=== PATIENT | female | born 1950 | race Caucasian/White ===

== ENCOUNTER 2017-03-30 16:21 | Inpatient (IN) ==
[2017-03-30] MEDS ORDERED: Ondansetron 4 MG/2 ML VIAL IVP PRN (20:47)
[2017-03-30] MEDS ORDERED: Naloxone 0.4 MG/ML INJ IVP PRN (20:47)
[2017-03-30] MEDS ORDERED: Ibuprofen 400 MG TABLET PO PRN (20:47)
[2017-03-30] MEDS ORDERED: Dextrose Gel 15 GM PO PRN ×2 (20:50)
[2017-03-30] MEDS ORDERED: D5% in Water 1,000 ML IVC PRN (20:50)
[2017-03-30] MEDS ORDERED: *HR* Dextrose 50 % in Water (Syg) 50 ML SYRINGE IVP PRN (20:50)
--- NOTE | 2017-03-30 21:27 | Internal Med History&Physical ---
Date of Encounter: 03/30/17 Time of Encounter: 21:23 Assessment and Plan (1) Cirrhosis Current visit: Yes Status: Acute New onset. Most likely cause at this time is nonalcoholic fatty liver disease, however differential includes alcoholic cirrhosis, hepatitis, autoimmune, hemochromatosis, Elio's, alpha-1 antitrypsin. Patient denies any history of liver disease, alcohol use, hepatitis. Will obtain liver ultrasound for further characterization, will check hepatitis panel, HILTON, iron profile and ferritin, ceruloplasmin, alpha-1 antitrypsin. SPEP does not appear present as the patient is not febrile or not in pain. Qualifiers: Hepatic cirrhosis type: unspecified hepatic cirrhosis Ascites presence: with ascites Qualified Code(s): K74.60 - Unspecified cirrhosis of liver (2) Pleural effusion Current visit: No Status: Acute Likely transudative in the setting of cirrhosis and hypoalbuminemia. Patient's respiratory status is clinically stable. Will diuresis. If respiratory status worsens or diuresis his ineffective then patient may require thoracentesis. (3) Type 2 diabetes mellitus Current visit: Yes Status: Acute Patient uses his insulin on sliding scale coverage. We will hold oral hypoglycemic agents. Continue monitor blood sugar and adjust insulin regimen based on blood sugars. 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 Continue PPI. Qualifiers: Esophagitis presence: esophagitis presence not specified Qualified Code(s) : K21.9 - Gastro-esophageal reflux disease without esophagitis (5) DVT prophylaxis Current visit: Yes Status: Acute EPCDs Internal Medicine - H&P: HPI Chief complaint: Abdominal distention Admitted From: Emergency Dept Plans for Post Hospital Care: Home History of present illness: Ms. Bautista is a 66 year old female with history of type 2 diabetes presents with shortness of breath and abdominal distention. Patient states that she has gained 30 pounds over the last several weeks and her abdomen has slowly distended over that time. She came to the hospital today because she had progressive shortness of breath which worsened as her abdominal distention worsened. She states her abdomen has been distended in the past but has resolved spontaneously. She reports a mild dry cough. She denies any fever, chills, chest pain, syncope, vision changes, abdominal pain, nausea, vomiting, diarrhea, hematemesis, hematochezia, melena, lower extremity swelling, dysuria. She denies any history of liver disease and states that she was recently told her liver was "great." She denies any history of hepatitis or alcohol use, denies any family history of liver disease. Past Med Surg Social Fam HX - Past Medical History Medical history: diabetes, GERD, hypertension Psychiatric history: anxiety, depression - Past Surgical History Surgical History: , cataract, cholecystectomy, hysterectomy, knee replacement, orthopedic, other, other - Social History Smoking Status: Never smoker Smokeless Tobacco Status: No Alcohol use: none Drug use: none - Additional Family History Additional family history: Patient denies any significant family history. Internal Medicine - H&P: Meds Insulin ASPART [Novolog Flexpen] 0 unit SQ TIDWM 07/03/16 [History] Insulin Glargine,Hum.rec.anlog [Lantus Solostar] 30 - 35 unit SQ HS 07/03/16 [ History] Lisinopril-HCTZ 10-12.5 [Prinzide 10-12.5] 1 each PO DAILY 07/03/16 [History] Omeprazole [PriLOSEC] 20 mg PO DAILY 07/03/16 [History] Venlafaxine XR (24 HR) [Effexor XR] 150 mg PO DAILY 07/03/16 [History] Gabapentin [Neurontin] 300 mg PO HS 03/30/17 [History] Metformin HCl [Glucophage] 1,000 mg PO DAILY 03/30/17 [History] Allergies acetaminophen [From Percocet] Allergy (Verified 07/03/16 23:07) Nausea Oxycodone [From OxyContin] Allergy (Verified 07/03/16 23:07) Hives All Systems PM: A 10-system review of systems was performed and is negative for pertinent findings except as documented above in the HPI. - Constitutional Constitutional: weight gain, no chills, no fever(s) - EENT Eyes: no blurry vision, no change in vision Nose, mouth and throat: no sinus pain, no sinus pressure, no sore throat - Cardiovascular Cardiovascular ROS IM: dyspnea, no chest pain, no edema, no lightheadedness, no palpitations, no syncope - Respiratory Respiratory: cough, dyspnea, no hemoptysis, no dyspnea on exertion, no wheezing , no chest congestion, no excessive phlegm production, no change in phlegm color - Gastrointestinal Gastrointestinal: bloating, no abdominal pain, no diarrhea, no hematemesis, no hematochezia, no melena, no nausea, no vomiting - Genitourinary Genitourinary: no dysuria - Musculoskeletal Musculoskeletal ROS IM: no arthralgias, no numbness, no tingling - Integumentary Integumentary IM: no erythema, no new lesions, no rash - Neurological Neurological ROS: no confusion, no dizziness, no numbness, no tingling - Psychiatric Psychiatric: no confusion - Endocrine Endocrine IM: no polydipsia, no polyuria - Hematologic/Lymphatic Hematologic/Lymphatic: no easy bleeding, no easy bruising - Constitutional Vitals: Temp Pulse Resp BP Pulse Ox 98.1 F 103 13 135/68 98 03/30/17 20:11 03/30/17 20:11 03/30/17 20:11 03/30/17 20:11 03/30/17 20:11 General appearance: Present: A&O X 3, pleasant, no acute distress - Head Head exam: Present: atraumatic, normal inspection, normocephalic - Eye Eye exam: Present: EOMI Additional comments: The right pupil seemed slightly larger than the left pupil, both were reactive to light - ENT ENT exam: Present: mucous membranes dry - Neck Neck exam general surgery: Present: full ROM. Absent: tenderness - Respiratory Respiratory exam: Present: decreased breath sounds (Left base). Absent: rales, rhonchi, wheezes, tachypnea - Cardiovascular Cardiovascular exam: Present: tachycardia (regular). Absent: gallop, rubs, systolic murmur - GI/Abdominal GI/Abdominal exam: Present: normal bowel sounds, soft. Absent: distended, tenderness - Extremities Exam Extremities exam: Present: pedal edema (1+ bilaterally), warm. Absent: tenderness - Neurological Exam Neurological exam: Present: alert, CN II-XII intact, oriented X3, no focal deficits, strengths equal and symetr throughout. Absent: speech deficit - Psychiatric Psychiatric exam: Present: flat affect - Skin Skin exam: Present: dry, intact, warm
[2017-03-30 22:07] LABS: Hemoglobin A1C 5.2 %
[2017-03-30 22:11] LABS: % Iron Saturation 9 % (15-50); Gamma Glutamyl Transpeptidase 34 Units/L (9-36); Iron 29 mcg/dL (50-170); Lactate Dehydrogenase 174 Units/L (159-327); Transferrin 229 mg/dL (180-382)
[2017-03-30 22:31] LABS: Ferritin 52 ng/ml (5-204)
[2017-03-30 22:33] LABS: Hepatitis A Antibody IgM Nonreactive (Nonreactive); Hepatitis B Core IgM Nonreactive (Nonreactive); Hepatitis B Surface Antigen Nonreactive (Nonreactive); Hepatitis C Virus Antibody Nonreactive (Nonreactive)
[2017-03-30] MEDS: Insulin DETEMIR 100 UNIT/ML X5UNITS SQ SCH (23:11)
[2017-03-30] MEDS: Insulin LISPRO 300 UNITS/3 ML VIAL SQ SCH (23:11)
--- NOTE | 2017-03-31 02:09 | Procedure Note ---
Date of procedure: 03/31/17 Pre-op diagnosis: Ascities Post-op diagnosis: same Procedure: Large volume paracentesis: Consent was obtained from the patient. Timeout was performed and the correct patient and procedure were verified. The abdomen was surveyed using ultrasound and a large pocket of fluid was identified. The skin was prepped and draped in the usual sterile fashion. The skin, subcutaneous tissues, and peritoneal lining were anesthetized using 8 mL of 1% lidocaine. A lorena in the skin was made using a scalpel and a catheter over needle apparatus was advanced into the peritoneal space. The needle was removed and an initial sample of fluid was removed and placed in specimen tubes. Then approximately 6.6 L of cloudy, blood -tinged fluid was removed. The catheter was then removed intact. Band-Aid was applied. The patient tolerated the procedure well and there are no immediate complications. Given the amount of fluid, 50 g of albumin has been ordered to give intravenously. The fluid will be sent to the lab for analysis. The attending physician, Dr. Adkins, was present for and supervised the entire procedure. Anesthesia: local Surgeon: Jaciel Vital Estimated blood loss (cc): 0 IV fluids (cc): 0 Pathology: other (Ascitic fluid sent to lab) Condition: stable Disposition: floor
[2017-03-31] MEDS: Albumin 25% 25gram/100mL 25 GM/100 ML IV.SOLN IVC SCH ×2 (02:18→04:34)
[2017-03-31 03:01] LABS: RBC,Peritoneal Fluid 0.036 M/mcL
[2017-03-31 03:07] LABS: Appearance of Peritoneal Fl BLOODY (Clear)
[2017-03-31 03:10] LABS: Amylase,Peritoneal Fluid 16 Units/L (No Ref Range); Glucose,Peritoneal Fluid 159 mg/dL (No Ref Range); LDH,Peritoneal Fluid 48 Units/L (No Ref Range); Total Protein,Peritoneal Fluid 1.5 g/dL (No Ref Range)
[2017-03-31 03:44] LABS: Basophils,Peritoneal Fluid 0 %; Eosinophils,Peritoneal Fluid 0 %
[2017-03-31 05:33] LABS: Immature Granulocytes % 0.3 % (0-4)
[2017-03-31 05:35] LABS: Basophils % 0.3 %; Eosinophils # 0.1 K/mcL (0.0-0.6); Eosinophils % 1.9 %; Hematocrit 31.5 % (35.3-44.9); Hemoglobin 9.7 g/dL (11.5-15.4); Immature Platelets 2.2 % (1.1-6.1); Lymphocytes # 0.7 K/mcL (0.6-4.6); Lymphocytes % 22.4 %; Mean Corpuscular HGB Conc 30.8 g/dL (31.6-35.5); Mean Platelet Volume 10.2 fL (9.4-12.4); Monocytes # 0.5 K/mcL (0.0-1.3); Monocytes % 14.9 %; Neutrophils # 1.9 K/mcL (1.6-8.9); Red Blood Count 4.04 M/mcL (3.82-4.97); Red Cell Distribution Width 16.6 % (11.5-14.5); Segmented Neutrophils % 60.2 %
[2017-03-31 05:38] LABS: INR 1.4; Prothrombin Time 15.2 Seconds (9.4-12.1)
[2017-03-31 05:58] LABS: BUN/Creatinine Ratio 23 (6-26); Blood Urea Nitrogen 18 mg/dL (7-20); Calcium 8.8 mg/dL (8.6-10.8); Carbon Dioxide 27 mEq/L (19-29); Chloride 105 mEq/L (98-109); Glucose 137 mg/dL (70-99); Magnesium 1.4 mg/dL (1.6-2.6); Osmolality,Calculated 292 (280-300); Phosphorous 2.6 mg/dL (2.3-4.7); Potassium 3.6 mEq/L (3.5-4.5); Sodium 139 mEq/L (136-145); eGFR For African Americans > 60 (> 60); eGFR For Non-African Americans > 60 (> 60)
[2017-03-31 06:01] LABS: Platelet Count 91 K/mcL (140-400)
[2017-03-31] MEDS: Insulin LISPRO 300 UNITS/3 ML VIAL SQ SCH ×4 (08:01→20:16)
[2017-03-31] MEDS ORDERED: Pantoprazole 40 MG VIAL IVP SCH (09:00)
[2017-03-31] MEDS: Furosemide 40 MG TABLET PO SCH (09:41)
[2017-03-31] MEDS: Venlafaxine XR (24 HR) 150 MG CAP.ER.24H PO SCH (09:41)
[2017-03-31] MEDS ORDERED: Magnesium Sulfate 1 GM in D5% in Water 100 ML IVPB ONE (10:28)
--- NOTE | 2017-03-31 12:52 | Gastroenterology Consult Note ---
<Jaciel Lindsay - Last Filed: 03/31/17 12:50> Date of Encounter: 03/31/17 Time of Encounter: 11:20 - Assessment and plan (1) Cirrhosis Current Visit: Yes Status: Acute Assessment and plan: Likely secondary to TONEY. RUQ US shows cirrhotic liver with moderate ascites, no mass seen. Unable to calculate MELD-NA, Child-Salcedo, or DF. Awaiting hepatic panel. Plan for EGD tomorrow r/o esophageal varices, keep NPO at midnight. Check AFP, alpha-1 antitrypsin, HILTON, ANCA, ceruloplasmin, F actin, ferritin, hepatitis panel, AMA, PT/INR. Qualifiers: Hepatic cirrhosis type: unspecified hepatic cirrhosis Ascites presence: with ascites Qualified Code(s): K74.60 - Unspecified cirrhosis of liver (2) Ascites Current Visit: Yes Status: Acute Assessment and plan: Paracentesis completed with 6.6 L drained. Continue Aldactone and Lasix. Qualifiers: Ascites type: other type Qualified Code(s): R18.8 - Other ascites - Time Spent With Patient Total time spent is greater than 50% in coordination of care (as documented) at patient's floor/unit and/or counseling patient: GI History of Present Illness - Data of Consult Patient: new to practice Consult date: 03/31/17 Requesting Physician: Tom Ying MD - Consult Narrative Reason for consult: cirrhosis History of present illness: Ms. Bautista is a 66 year old female with PMHx of DM, GERD, HTN who presented with worsening shortness of breath and abdomnal distention. Patient states that she has gained 30 pounds over the last several weeks and her abdomen has slowly distended over that time. She states her abdomen has been distended in the past but has resolved spontaneously. She denies any fever, chills, chest pain, syncope, vision changes, abdominal pain, nausea, vomiting, diarrhea, hematemesis , hematochezia, melena, lower extremity swelling, dysuria. She denies any history of liver disease and states that she was recently told her liver was "great." She denies any history of hepatitis or alcohol use, denies any family history of liver disease. Paracentesis was completed with 6.6 L of fluid removed. Procedures: None NSAIDs: None Anticoagulation: None Past Med Surg Social Fam HX - Past Medical History Medical history: diabetes, GERD, hypertension Psychiatric history: anxiety, depression - Past Surgical History Surgical History: , cataract, cholecystectomy, hysterectomy, knee replacement, orthopedic, other, other - Social History Smoking Status: Never smoker Smokeless Tobacco Status: No Alcohol use: none Drug use: none - Gastrointestinal Gastrointestinal: Present: as per HPI - Constitutional Constitutional: as per HPI - EENT Eyes: as per HPI Ears: Present: as per HPI Nose, mouth and throat: Present: as per HPI - Cardiovascular Cardiovascular ROS: Present: as per HPI - Respiratory Respiratory IM: Present: as per HPI - Genitourinary Genitourinary: Absent: change in color, Urinary frequency - Neurological ROS Neurological GI: Present: as per HPI - Hematologic/Lymphatic Hematologic/Lymphatic pediatric: Present: as per HPI - Musculoskeletal Musculoskeletal ROS GI: Present: as per HPI - Integumentary Integumentary GI: Present: as per HPI - Psychiatric ROS Psychiatric GI: Present: as per HPI - Endocrine Endocrine IM: Present: as per HPI - Constitutional Vitals: Temp Pulse Resp BP Pulse Ox 98.2 F 102 20 106/59 97 03/31/17 11:20 03/31/17 11:20 03/31/17 11:20 03/31/17 11:20 03/31/17 11:20 General appearance: Present: cooperative, A&O X 3, no acute distress, answers questions appropriately - Head Head exam: Present: atraumatic, normocephalic - Eye Eye exam: Present: normal appearance, sclera anicteric - ENT ENT exam: Present: mucous membranes moist - Neck Neck exam general surgery: Present: normal inspection, trachea midline - Respiratory Respiratory exam: Present: CTAB. Absent: rales, rhonchi - Cardiovascular Cardiovascular exam: Present: RRR, +S1, +S2 - GI/Abdominal GI/Abdominal exam: Present: soft, no peritoneal signs. Absent: distended, firm , guarding, tenderness - Rectal Rectal exam: Present: deferred - Extremities Exam Extremities exam: Present: warm - Neurological Exam Neurological exam: Present: no focal deficits - Psychiatric Psychiatric exam: Present: normal affect, normal mood - Skin Skin exam: Present: dry, intact, normal color, warm Results - Labs CBC & Chem 7: 03/31/17 04:42 03/31/17 04:42 Labs: Last Result Calcium 8.8 mg/dL (8.6-10.8) 03/31/17 04:42 Iron 29 mcg/dL (50-170) L 03/30/17 21:44 % Saturation 9 % (15-50) L 03/30/17 21:44 Transferrin 229 mg/dL (180-382) 03/30/17 21:44 Ferritin 52 ng/ml (5-204) 03/30/17 21:44 Peritoneal Appearance BLOODY (Clear) 03/31/17 02:20 Peritoneal Volume 18.0 mL 03/31/17 02:20 Peritoneal pH 7.62 pH Units (No Ref Range) 03/31/17 02:20 Peritoneal RBC 0.036 M/mcL (0.000-0.002) H 03/31/17 02:20 Periton Tot Nuc Cells 1015 TNC/mcL (0-300) H 03/31/17 02:20 Periton Band Neuts 0 % 03/31/17 02:20 Periton Lymphocytes % 96 % 03/31/17 02:20 Periton Monocytes % 3 % 03/31/17 02:20 Periton Other Cells % 0 % 03/31/17 02:20 Peritoneal Tot Protein 1.5 g/dL (No Ref Range) 03/31/17 02:20 Peritoneal Albumin 0.8 g/dL (No Ref Range) 03/31/17 02:20 Peritoneal LDH 48 Units/L (No Ref Range) 03/31/17 02:20 Peritoneal Glucose 159 mg/dL (No Ref Range) 03/31/17 02:20 Peritoneal Amylase 16 Units/L (No Ref Range) 03/31/17 02:20 Peritoneal Cholesterol 21 mg/dL (No Ref Range) 03/31/17 02:20 Peritoneal Triglycerid 199 mg/dL (No Ref Range) 03/31/17 02:20 Entire Visit Hgb 9.7 g/dL (11.5-15.4) L 03/31/17 04:42 Hct 31.5 % (35.3-44.9) L 03/31/17 04:42 PT 15.2 Seconds (9.4-12.1) H 03/31/17 04:42 Ferritin 52 ng/ml (5-204) 03/30/17 21:44 Ammonia 59 mcmol/L (18-72) 03/30/17 21:44 - ABG ABG results: PT/INR, D-dimer PT 15.2 Seconds (9.4-12.1) H 03/31/17 04:42 - Impressions Impressions Liver Ultrasound 03/31/17 08:00 IMPRESSION: Cirrhotic liver with moderate ascites. No definite mass D/ / Shahid Hagan MD / Shahid Hagan MD Interpreting Provider: Shahid Hagan MD Consult Discharge Plan - Plan Referrals: Latha Fink, [employer] [Primary Care Provider] - <Genevieve Dai - Last Filed: 03/31/17 17:20> Date of Encounter: 03/31/17 Time of Encounter: 14:00 - Time Spent With Patient Total time spent is greater than 50% in coordination of care (as documented) at patient's floor/unit and/or counseling patient: GI History of Present Illness - Data of Consult Requesting Physician: Tom Ying MD - Consult Narrative History of present illness: Ms. Bautista is a 66 year old female - Constitutional Vitals: Temp Pulse Resp BP Pulse Ox 98.2 F 102 20 106/59 97 03/31/17 11:20 03/31/17 11:20 03/31/17 11:20 03/31/17 11:20 03/31/17 11:20 Results - Labs CBC & Chem 7: 03/31/17 04:42 03/31/17 04:42 Labs: Last Result Calcium 8.8 mg/dL (8.6-10.8) 03/31/17 04:42 Iron 29 mcg/dL (50-170) L 03/30/17 21:44 % Saturation 9 % (15-50) L 03/30/17 21:44 Transferrin 229 mg/dL (180-382) 03/30/17 21:44 Ferritin 52 ng/ml (5-204) 03/30/17 21:44 Peritoneal Appearance BLOODY (Clear) 03/31/17 02:20 Peritoneal Volume 18.0 mL 03/31/17 02:20 Peritoneal pH 7.62 pH Units (No Ref Range) 03/31/17 02:20 Peritoneal RBC 0.036 M/mcL (0.000-0.002) H 03/31/17 02:20 Periton Tot Nuc Cells 1015 TNC/mcL (0-300) H 03/31/17 02:20 Periton Band Neuts 0 % 03/31/17 02:20 Periton Lymphocytes % 96 % 03/31/17 02:20 Periton Monocytes % 3 % 03/31/17 02:20 Periton Other Cells % 0 % 03/31/17 02:20 Peritoneal Tot Protein 1.5 g/dL (No Ref Range) 03/31/17 02:20 Peritoneal Albumin 0.8 g/dL (No Ref Range) 03/31/17 02:20 Peritoneal LDH 48 Units/L (No Ref Range) 03/31/17 02:20 Peritoneal Glucose 159 mg/dL (No Ref Range) 03/31/17 02:20 Peritoneal Amylase 16 Units/L (No Ref Range) 03/31/17 02:20 Peritoneal Cholesterol 21 mg/dL (No Ref Range) 03/31/17 02:20 Peritoneal Triglycerid 199 mg/dL (No Ref Range) 03/31/17 02:20 Entire Visit Hgb 9.7 g/dL (11.5-15.4) L 03/31/17 04:42 Hct 31.5 % (35.3-44.9) L 03/31/17 04:42 PT 15.2 Seconds (9.4-12.1) H 03/31/17 04:42 Ferritin 52 ng/ml (5-204) 03/30/17 21:44 Total Bilirubin 1.9 mg/dL (0.2-1.2) H D 03/31/17 10:05 AST 23 Units/L (5-34) 03/31/17 10:05 ALT 11 Units/L (0-55) 03/31/17 10:05 Ammonia 59 mcmol/L (18-72) 03/30/17 21:44 - ABG ABG results: PT/INR, D-dimer PT 15.2 Seconds (9.4-12.1) H 03/31/17 04:42 - Impressions Impressions Liver Ultrasound 03/31/17 08:00 IMPRESSION: Cirrhotic liver with moderate ascites. No definite mass D/ / Shahid Hagan MD / Shahid Hagan MD Interpreting Provider: Shahid Hagan MD - Attending Attestation I examined this patient and my medical decision-making was reviewed with the RURAL CARRIER ASSOCIATE/PA/Advanced Practice Nurse/Resident Physician. I agree with the documented findings, disposition and treatment plan as described except to the extent set forth below.
--- NOTE | 2017-03-31 13:59 | Internal Med Progress Note ---
Date of Encounter: 03/31/17 Time of Encounter: 13:56 - Assessment and plan (1) Pleural effusion Current Visit: No Status: Acute Assessment and plan: currently not in any distress no need for urgent thoracentesis will monitor closely, asymptomatic for now will contiue the diuretics (2) Cirrhosis Current Visit: Yes Status: Acute Assessment and plan: decompensated cirrhosis with portal HTN and ascitis Likely secondary to TONEY. RUQ US shows cirrhotic liver with moderate ascites, no mass seen. GI on board. Plan for EGD tomorrow r/o esophageal varices, keep NPO at midnight. Check AFP, alpha-1 antitrypsin, HILTON, ANCA, ceruloplasmin, F actin, ferritin, hepatitis panel, AMA, PT/INR. 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 s/p Paracentesis completed with 6.6 L drained. Continue Aldactone and Lasix. fluid analysis consistent with portal HTN. Qualifiers: Ascites type: other type Qualified Code(s): R18.8 - Other ascites - Subjective Interval history: patient seen at the bedside, admitted for newly diagnosed cirrhosis with portal HTN appeared very concerned about the diagnosis of cirrhosis, probably 2/2 TONEY. GI has been consulted, s/p paracentesis with 6 l of peritoneal fluid. - Constitutional Vitals: Temp Pulse Resp BP Pulse Ox 98.2 F 102 20 106/59 97 03/31/17 11:20 03/31/17 11:20 03/31/17 11:20 03/31/17 11:20 03/31/17 11:20 General appearance: Present: A&O X 3, pleasant, no acute distress Exam: - Head Head exam: Present: atraumatic, normocephalic - Eye Eye exam: Present: normal appearance, sclera anicteric - ENT ENT exam: Present: mucous membranes moist - Neck Neck exam general surgery: Present: normal inspection, trachea midline - Respiratory Respiratory exam: Present: CTAB. Absent: rales, rhonchi - Cardiovascular Cardiovascular exam: Present: RRR, +S1, +S2 - GI/Abdominal GI/Abdominal exam: Present: soft,mild distended, no peritoneal signs. - Rectal Rectal exam: Present: deferred - Extremities Exam Extremities exam: Present: warm - Neurological Exam Neurological exam: Present: no focal deficits - Psychiatric Psychiatric exam: Present: normal affect, normal mood - Skin Skin exam: Present: dry, intact, normal color, warm Internal Medicine: Result - Labs CBC & Chem 7: 03/31/17 04:42 03/31/17 04:42 Labs: Short CBC 03/31/17 Range/Units 04:42 WBC 3.2 L (4.3-11.1) K/mcL Hgb 9.7 L (11.5-15.4) g/dL Hct 31.5 L (35.3-44.9) % Plt Count 91 L (140-400) K/mcL Neutrophils # 1.9 (1.6-8.9) K/mcL BMP 03/31/17 04:42 Sodium 139 Potassium 3.6 Chloride 105 Carbon Dioxide 27 BUN 18 Creatinine 0.79 Glucose 137 H Calcium 8.8 Liver Function 03/30/17 Range/Units 21:44 GGT 34 (9-36) Units/L - ABG Interpretation ABG results: PT/INR, D-dimer PT 15.2 Seconds (9.4-12.1) H 03/31/17 04:42 - Impressions Impressions Liver Ultrasound 03/31/17 08:00 IMPRESSION: Cirrhotic liver with moderate ascites. No definite mass D/ / Shahid Hagan MD / Shahid Hagan MD Interpreting Provider: Shahid Hagan MD Consult Discharge Plan - Plan Referrals: Latha Fink, UTILITY FORESTER [Primary Care Provider] -
[2017-03-31 14:47] LABS: Albumin/Globulin Ratio 0.9 (1.1-2.2); Bilirubin,Direct 0.7 mg/dL (0.0-0.5); Bilirubin,Indirect 1.2 mg/dL (0.0-1.2); Bilirubin,Total 1.9 mg/dL (0.2-1.2); Globulin 3.4 g/dL (2.4-3.5)
[2017-03-31 14:49] LABS: Total Protein 6.4 g/dL (6.0-8.3)
[2017-03-31] MEDS: Insulin DETEMIR 100 UNIT/ML X5UNITS SQ SCH (20:16)
[2017-04-01] MEDS: Insulin LISPRO 300 UNITS/3 ML VIAL SQ SCH ×2 (08:04→11:55)
[2017-04-01 08:33] LABS: Basophils % 0.6 %; Immature Granulocytes % 0.3 % (0-4); Mean Corpuscular Volume 78.3 fL (83.0-100.0); Red Cell Distribution Width 16.5 % (11.5-14.5)
[2017-04-01 08:35] LABS: Eosinophils # 0.1 K/mcL (0.0-0.6); Eosinophils % 1.4 %; Hemoglobin 9.6 g/dL (11.5-15.4); Immature Platelets 2.2 % (1.1-6.1); Lymphocytes # 0.8 K/mcL (0.6-4.6); Lymphocytes % 23.6 %; Mean Corpuscular Hemoglobin 24.2 pg (28.0-33.3); Monocytes # 0.5 K/mcL (0.0-1.3); Monocytes % 14.4 %; Neutrophils # 2.1 K/mcL (1.6-8.9); Red Blood Count 3.96 M/mcL (3.82-4.97); Segmented Neutrophils % 59.7 %
[2017-04-01 08:37] LABS: Platelet Count 88 K/mcL (140-400)
[2017-04-01 08:44] LABS: BUN/Creatinine Ratio 15 (6-26); Blood Urea Nitrogen 12 mg/dL (7-20); Calcium 8.5 mg/dL (8.6-10.8); Carbon Dioxide 28 mEq/L (19-29); Chloride 106 mEq/L (98-109); Glucose 178 mg/dL (70-99); Osmolality,Calculated 294 (280-300); Potassium 3.9 mEq/L (3.5-4.5); Sodium 140 mEq/L (136-145); eGFR For African Americans > 60 (> 60); eGFR For Non-African Americans > 60 (> 60)
--- NOTE | 2017-04-01 09:48 | Anesthesia Evaluation PreOp ---
Date of Encounter: 04/01/17 Time of Encounter: 09:46 - Past History Planned Operation: EGD Cardiac History: CHF, HTN (maitnained on Lisinopril-Hctz) Pulmonary History: Other (SOB/RAYGOZA/Tachypnea. 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 Chronic pain/ Diabetic Neuropathy maintained on Gabapentin.) Other Medical History: Hepatic (Newly dx Cirrhosis/TONEY (with decompensation this hospitalization)/Portal HTN/Ascites - managed on Lasix, Spironolactone), Diabetes Type II (maintained on Novolog, Lantus, Metformin), GERD (maintained on Omeprazole) Anesthesia History: No Prior Anesthetic Complications, Past Anesthesia (C- section, Cataracts, Juliana, ROSY, R-TKR) Alcohol Use: none Drug use: none Medications and Allergies Insulin ASPART [Novolog Flexpen] 0 unit SQ TIDWM 07/03/16 [History] Insulin Glargine,Hum.rec.anlog [Lantus Solostar] 30 - 35 unit SQ HS 07/03/16 [ History] Lisinopril-HCTZ 10-12.5 [Prinzide 10-12.5] 1 each PO DAILY 07/03/16 [History] Omeprazole [PriLOSEC] 20 mg PO DAILY 07/03/16 [History] Venlafaxine XR (24 HR) [Effexor XR] 150 mg PO DAILY 07/03/16 [History] Gabapentin [Neurontin] 300 mg PO HS 03/30/17 [History] Metformin HCl [Glucophage] 1,000 mg PO DAILY 03/30/17 [History] Allergies acetaminophen [From Percocet] Allergy (Verified 07/03/16 23:07) Nausea Oxycodone [From OxyContin] Allergy (Verified 07/03/16 23:07) Hives - Meds/Allergy Pre-op Review Medications Reviewed: Yes Allergies Reviewed: Yes Beta Blockers on Current Med List: No Anesthesia Results - Labs 04/01/17 08:12 04/01/17 08:12 Laboratory Results Impressions Liver Ultrasound 03/31/17 08:00 IMPRESSION: Cirrhotic liver with moderate ascites. No definite mass D/ / Shahid Hagan MD / Shahid Hagan MD Interpreting Provider: Shahid Hagan MD - Imaging EKG: image reviewed (98bpm SR, Non-specific T-wave abnormality) Anesthesia Exam Vital Signs Temp Pulse Resp BP Pulse Ox 04/01/17 08:00 98.6 F 98 18 129/70 93 04/01/17 04:22 99.4 F 102 14 125/66 93 04/01/17 00:46 99.4 F 107 14 108/59 93 03/31/17 20:06 99.9 F H 104 14 123/63 93 03/31/17 17:11 98.8 F 105 20 122/69 93 03/31/17 11:20 98.2 F 102 20 106/59 97 Intake and Output 03/31/17 04/01/17 04/01/17 23:59 07:59 15:59 Intake Total 0 / 0 0 / 0 Output Total 0 / 0 900 / 900 0 / 0 Balance 0 / 0 -900 / -900 0 / 0 Intake: Oral 0 / 0 0 / 0 Output: Urine 0 / 0 900 / 900 0 / 0 Other: Meal NPO breakfast # Voids 1 Weight 94 kg Blood Glucose* 194 189 Patient Weight 04/01/17 23:59 Weight 94 kg Height: 5'8" Weight: 207# BMI = 32 NPO (# of Hours): MNOc - HEENT Pupil (Motor): Pupils equal, EOMI Mallampati: II Teeth: Normal Oral Opening: Greater than 3 - STICKER MACHINE OPERATOR LOC: Oriented STICKER MACHINE OPERATOR Motor: Normal RUE, Normal LUE, Normal RLE, Normal LLE, Normal Face STICKER MACHINE OPERATOR Sensory: Normal: RUE, LUE, RLE, LLE, Face - Cardiac Rhythm: Regular Murmur: Systolic JVD: No - Pulmonary Breath Sounds: bilateral Clear Anesthesia Assess/Plan ASA Score: 3 (DM, Cirrhosis, Obesity, Smoker, Anxiety/Depression) Modified Thelma Scale for Level of Consciousness: Cooperative, oriented, and tranquil Anesthetic Plan: MAC Monitoring Plan: Standard Monitors Recovery Plan: Other Anes Supervising Prov Stmt: Pt seen/evaluated, R&B discussed questions answered and consent obtained. Rose Mccoy MD
--- NOTE | 2017-04-01 11:25 | Anesthesia Evaluation Post Op ---
Date of Encounter: 04/01/17 Time of Encounter: 11:24 - Vital Signs Vital Signs: vss - Lungs Lungs: Clear Ascult./Percussion - Airway Airway: Non-obstructed - Cardiovascular Baseline Rhythm - Mental Status Mental Status: Asleep with brisk response to light stimulation - Pain Pain Scale used: Julia (Faces) - Nausea Vomiting Nausea Vomiting: Not Present - Discharge PostOp Status: Transfer Patient to floor
[2017-04-01 11:48] VITALS: BP 121/66
[2017-04-01] MEDS: Venlafaxine XR (24 HR) 150 MG CAP.ER.24H PO SCH (11:55)
[2017-04-01] MEDS: Furosemide 40 MG TABLET PO SCH (11:55)
--- NOTE | 2017-04-01 14:11 | Discharge Summary ---
Date of Encounter: 04/01/17 Time of Encounter: 14:09 - Discharge Diagnosis (1) Pleural effusion Priority: Primary Status: Acute (2) Cirrhosis Priority: Primary Status: Acute Qualifiers: Hepatic cirrhosis type: unspecified hepatic cirrhosis Ascites presence: with ascites Qualified Code(s): K74.60 - Unspecified cirrhosis of liver (3) Type 2 diabetes mellitus Priority: Secondary Status: Acute Qualifiers: Diabetes mellitus complication status: without complication Diabetes mellitus driver manager insulin use: with driver manager use Qualified Code(s): E11.9 - Type 2 diabetes mellitus without complications; Z79.4 - brand ambassador (current) use of insulin (4) Ascites Priority: Primary Status: Acute Qualifiers: Ascites type: other type Qualified Code(s): R18.8 - Other ascites - Discharge Medications Prescriptions: Ferrous Sulfate 325 mg PO BIDWM #60 tablet Furosemide [Lasix] 40 mg PO DAILY #30 tablet Lactulose 10 gm PO BID #60 mls Spironolactone [Aldactone] 100 mg PO DAILY #60 tablet Home Medications: Insulin ASPART [Novolog Flexpen] 0 unit SQ TIDWM 07/03/16 [History] Insulin Glargine,Hum.rec.anlog [Lantus Solostar] 30 - 35 unit SQ HS 07/03/16 [ History] Lisinopril-HCTZ 10-12.5 [Prinzide 10-12.5] 1 each PO DAILY 07/03/16 [History] Omeprazole [PriLOSEC] 20 mg PO DAILY 07/03/16 [History] Venlafaxine XR (24 HR) [Effexor Xr] 150 mg PO DAILY 07/03/16 [History] Gabapentin [Neurontin] 300 mg PO HS 03/30/17 [History] Metformin HCl [Glucophage] 1,000 mg PO DAILY 03/30/17 [History] Ferrous Sulfate 325 mg PO BIDWM #60 tablet 04/01/17 [Rx] Furosemide [Lasix] 40 mg PO DAILY #30 tablet 04/01/17 [Rx] Lactulose 10 gm PO BID #60 mls 04/01/17 [Rx] Spironolactone [Aldactone] 100 mg PO DAILY #60 tablet 04/01/17 [Rx] Allergies/Adverse Reactions: Allergies acetaminophen [From Percocet] Allergy (Verified 09/03/16 23:07) Nausea Oxycodone [From OxyContin] Allergy (Verified 07/03/16 23:07) Hives Procedures/tests Complete & Pending: Procedures Performed prior 72 hours Category Date Time Status US liver [US] Stat Exams 03/31/17 08:00 Completed EV echocardiogram Stat Y 03/31/17 09:28 Completed Date of admission: 03/31/17 01:19 Primary care physician: Latha Fink CNP Consults: 03/31/17 08:09 Consult to Gastroenterology [CONS] Routine Consulting Provider: Gastroenterology Lisa Reason for Consult: please assist in management of newly diagnosed decompensated cirrhosis with portal htn and ascitis. Call Completed: No Discharging clinician: Linda Oviedo Anticipated date of discharge: 04/01/17 - Patient Status Disposition: Home, Self-Care Condition: Fair Functional capacity at discharge: independent ambulation Overall status at discharge: patient is back to baseline - Discharge Instructions Instructions: Cirrhosis (DC) Follow Up With: Latha Fink CNP [Primary Care Provider] - 04/11/17 9:30 am Genevieve Dai MD [Partnered Physician] - (Web request sent on 04/01 for 2 week follow up per RN.) - Diet and Activity Activity: resume usual activities as tolerated Diet: advance to your usual diet Interval History: Ms. Bautista is a 66 year old female with PMHx of DM, GERD, HTN who presented with worsening shortness of breath and abdomnal distention. Patient states that she has gained 30 pounds over the last several weeks and her abdomen has slowly distended over that time. She states her abdomen has been distended in the past but has resolved spontaneously. She denies any fever, chills, chest pain, syncope, vision changes, abdominal pain, nausea, vomiting, diarrhea, hematemesis , hematochezia, melena, lower extremity swelling, dysuria. She denies any history of liver disease . She denies any history of hepatitis or alcohol use, denies any family history of liver disease. CT abdomen was done taht showed cirrhosis of the liver with ascites and portal hypertension. Given shortness of breath and significant ascites, Paracentesis was completed with 6.6 L of fluid removed. There is no fever or leukocytosis, GI was consulted,Likely secondary to TONEY. RUQ US with no mass seen. Unable to calculate MELD-NA, Child-Salcedo, or DF. EGD with no esophageal varices. Patient is being discharged today to follow up with GI as outpatient with results of AFB,alpha-1 antitrypsin, HILTON, ANCA, ceruloplasmin, F actin, ferritin. will dc the patinet with lasix and aldactone along with lactulose for now. Hospital course: Ms. Bautista is a 66 year old female - Time Spent with Patient Total time spent providing and/or coordinating discharge services: - Constitutional Vitals: Temp Pulse Resp BP Pulse Ox 98.2 F 100 18 121/66 92 04/01/17 11:41 04/01/17 11:41 04/01/17 11:41 04/01/17 11:41 04/01/17 11:41 General appearance: Present: A&O X 3, pleasant, no acute distress Exam: - Head Head exam: Present: atraumatic, normocephalic - Eye Eye exam: Present: normal appearance, sclera anicteric - ENT ENT exam: Present: mucous membranes moist - Neck Neck exam general surgery: Present: normal inspection, trachea midline - Respiratory Respiratory exam: Present: CTAB. Absent: rales, rhonchi - Cardiovascular Cardiovascular exam: Present: RRR, +S1, +S2 - GI/Abdominal GI/Abdominal exam: Present: soft, no peritoneal signs. Absent: distended, firm , guarding, tenderness - Rectal Rectal exam: Present: deferred - Extremities Exam Extremities exam: Present: warm - Neurological Exam Neurological exam: Present: no focal deficits - Psychiatric Psychiatric exam: Present: normal affect, normal mood - Skin Skin exam: Present: dry, intact, normal color, warm
[2017-04-01] MEDS ORDERED: Lidocaine -MPF 2% 5 ML VIAL INFILT ONE (16:34)
[2017-04-01] MEDS ORDERED: *HR* Propofol 200 MG/20 ML VIAL IVP ONE (16:34)
[2017-04-02 10:38] LABS: Alpha-1-Antitrypsin 173 mg/dL (90-200); Ceruloplasmin 26 mg/dL (17-54)
[2017-04-02 10:40] LABS: AFP Tumor Marker Non-Pregnant 1 ng/mL (0-9)
[2017-04-02 10:47] LABS: ANA IgG by ELISA NONE DETECTED (None Detected)
[2017-04-02 10:48] LABS: F-Actin (sm muscle) Ab IgG 22 Units (0-19); Myeloperoxidase Ab 3 AU/mL (0-19); Serine Protease-3 Antibody 0 AU/mL (0-19)
[2017-04-04 07:32] LABS: Smooth Muscle Ab Titer IgG <1:20 (<1:20)
== END 2017-04-01 16:35 | disposition home or self-care (01) | DRG 442 ==
LOC: 3ANU
PROVIDERS: ADMIT Internal Medicine Endocrinology, Diabetes & Metabolism; ATTEND Internal Medicine

== ENCOUNTER 2017-07-17 19:35 | Inpatient (IN) ==
--- NOTE | 2017-07-17 23:37 | Internal Med History&Physical ---
Date of Encounter: 07/18/17 Time of Encounter: 23:00 Assessment and Plan (1) Cellulitis Current visit: Yes Status: Acute Acute left foot cellulitis, with draining wound - secondary to injury Continue IV Zosyn, IV Vancomycin Cultures - pending WBC - 5.1 Foot X-ray - pending Chest x-ray - large left pleural effusion BN peptide - 30 Troponin - 0.01 US Venous/Arterial Doppler - pending Podiatry consult Wound Care consult, dressing change daily, monitor closely Qualifiers: Site of cellulitis: extremity Site of cellulitis of extremity: lower extremity Laterality: left Qualified Code(s): L03.116 - Cellulitis of left lower limb (2) Cirrhosis Current visit: No Status: Chronic Recently diagnosed cirrhosis - likely secondary to TONEY - with massive ascites and pleural effusion Child-Salcedo - Class C, MELD Na score ~ 20 IV Lasix, Aldactone, ejection, strict I's and O's, daily weight Interventional radiology consult - patient will need paracentesis Cardiac telemetry, continuous pulse ox, labs in a.m., monitor closely Qualifiers: Hepatic cirrhosis type: unspecified hepatic cirrhosis Ascites presence: with ascites Qualified Code(s): K74.60 - Unspecified cirrhosis of liver (3) Pleural effusion Current visit: No Status: Acute Large Left pleural effusion - likely due to cirrhosis, causing shortness of breath Continue IV Lasix, Aldactone, fluid restriction, strict I's and O's, pulse ox, O2 via nasal cannula Interventional radiology consult - patient will need thoracentesis Cardiac telemetry, pulse ox, monitor closely (4) Hypertension Current visit: Yes Status: Chronic Essential hypertension, controlled, continue home dose of lisinopril/HCTZ, monitor Qualifiers: Hypertension type: essential hypertension Qualified Code(s): I10 - Essential (primary) hypertension (5) Type 2 diabetes mellitus Current visit: No Status: Acute Diabetes mellitus type 2, insulin-dependent, hyperglycemia Continue sliding scale insulin, glucose checks Qualifiers: Diabetes mellitus complication status: without complication Diabetes mellitus oysterman insulin use: with penitentiary use Qualified Code(s): E11.9 - Type 2 diabetes mellitus without complications; Z79.4 - oysterman (current) use of insulin (6) DVT prophylaxis Current visit: Yes Status: Acute Continue Heparin subcutaneous Internal Medicine - H&P: HPI Chief complaint: Shortness of breath, left foot pain Admitted From: Emergency Dept Plans for Post Hospital Care: Home History of present illness: Ms. Bautista is a 67 year old female with past medical history of hypertension, diabetes, GERD and cirrhosis. She presents as a transfer from [facility] shortness of breath and right foot injury. Examined in the room. Patient is awake and alert. Not in any distress. Able to provide all history. No family members at bedside. Patient complaints of shortness of breath that started about a few days ago and has gradually worsened. She denies chest pain. She does have a history of cirrhosis with ascites and has had paracentesis in the past. Patient states shortness of breath is worse on exertion. No alleviating factors. She denies palpitations or vomiting or diarrhea or fever. Patient also mentions that she scraped her left foot about 3-4 days ago. Complains of worsening pain and swelling over left foot. She also says she has had similar injuries on her right foot. Patient does have bilateral lower leg edema which patient states is chronic. No other acute complaints. Initial workup in the ED is significant for large left pleural effusion. Partial consolidation of the left upper and lower lobe. Patient also has large volume ascites and cirrhosis and findings of portal hypertension. She was transferred here for further management of her ascites and pleural effusion. Patient also has left foot wound and cellulitis and will need IV antibiotics. Guarded condition. CODE STATUS full code. Past Med Surg Social Fam HX - Past Medical History Medical history: cirrhosis, diabetes, GERD, hypertension Psychiatric history: anxiety, depression - Past Surgical History Surgical History: , cataract, cholecystectomy, hysterectomy, knee replacement - Social History Smoking Status: Never smoker Smokeless Tobacco Status: No Alcohol use: none Drug use: none - Family History Father Name: louie obregon Family Member Ethnicity: Non- Living Status: Age at : 67 Cause of : Cancer Hx Family Cardiac Disorders: Yes ([place]) Hx Family Cancer: Yes ([place]) Internal Medicine - H&P: Meds Insulin ASPART [Novolog Flexpen] 0 unit SQ TIDWM 07/03/16 [History] Insulin Glargine,Hum.rec.anlog [Lantus Solostar] 30 - 35 unit SQ HS 07/03/16 [ History] Lisinopril-HCTZ 10-12.5 [Prinzide 10-12.5] 1 each PO DAILY 07/03/16 [History] Omeprazole [PriLOSEC] 20 mg PO DAILY 07/03/16 [History] Venlafaxine XR (24 HR) [Effexor Xr] 150 mg PO DAILY 07/03/16 [History] Gabapentin [Neurontin] 300 mg PO HS 03/30/17 [History] Metformin HCl [Glucophage] 1,000 mg PO DAILY 03/30/17 [History] Ferrous Sulfate 325 mg PO BIDWM #60 tablet 04/01/17 [Rx] Furosemide [Lasix] 40 mg PO DAILY #30 tablet 04/01/17 [Rx] Lactulose 10 gm PO BID #60 mls 04/01/17 [Rx] Spironolactone [Aldactone] 100 mg PO DAILY #60 tablet 04/01/17 [Rx] 3 Allergy/AdvReac Type Severity Reaction Status Date / Time acetaminophen [From Percocet] Allergy Nausea Verified 07/17/17 16:50 Oxycodone [From OxyContin] Allergy Hives Verified 07/17/17 16:50 All Systems PM: A 10-system review of systems was performed and is negative for pertinent findings except as documented above in the HPI. - Constitutional Constitutional: fatigue, weakness, no fever(s) - EENT Eyes: no blurry vision - Cardiovascular Cardiovascular ROS IM: dyspnea, dyspnea on exertion, edema, orthopnea, no chest pain, no diaphoresis, no lightheadedness, no syncope - Respiratory Respiratory: cough, dyspnea, dyspnea on exertion, no hemoptysis, no wheezing, no chest congestion - Gastrointestinal Gastrointestinal: abdominal pain, bloating, no cramping, no diarrhea, no hematemesis, no hematochezia, no nausea, no vomiting - Genitourinary Genitourinary: no dysuria - Neurological Neurological ROS: no abnormal gait, no confusion, no dizziness, no loss of vision, no numbness, no tingling - Constitutional Vitals: Temp Pulse Resp BP Pulse Ox 98.1 F 95 21 128/74 96 07/17/17 22:05 07/17/17 22:05 07/17/17 22:05 07/17/17 22:05 07/17/17 22:05 General appearance: Present: cooperative, A&O X 3, no acute distress, obese, answers questions appropriately Exam: Chronically ill-appearing, anxious - Head Head exam: Present: atraumatic - Eye Eye exam: Present: EOMI - ENT ENT exam: Present: mucous membranes dry - Respiratory Respiratory exam: Present: decreased breath sounds (Bilateral in both bases), rhonchi (Mild bilateral). Absent: accessory muscle use, rales, wheezes, tachypnea - Cardiovascular Cardiovascular exam: Present: RRR, +S1, +S2 - GI/Abdominal GI/Abdominal exam: Present: distended (Massive ascites), soft, no peritoneal signs. Absent: firm, guarding, tenderness - Extremities Exam Extremities exam: Present: pedal edema (Bilateral lower extremity 3+ pitting edema), radial pulses palpable and symmetrical. Absent: calf tenderness, cyanotic Additional comments: Left foot dorsal aspect open wound with drainage and tenderness and erythema. Patient has cellulitis - Neurological Exam Neurological exam: Present: alert, oriented X3, no focal deficits. Absent: facial droop, speech deficit Internal Med - H&P Results - Labs CBC & Chem 7: 07/18/17 01:32 07/18/17 01:32
[2017-07-18] MEDS ORDERED: Naloxone 0.4 MG/ML INJ IVP PRN (00:09)
[2017-07-18] MEDS ORDERED: Ondansetron 4 MG/2 ML VIAL IVP PRN (00:09)
[2017-07-18] MEDS ORDERED: *HR* Morphine 2 MG/ML SYRINGE IVP PRN (00:09)
[2017-07-18] MEDS ORDERED: Dextrose Gel 15 GM PO PRN ×2 (00:53)
[2017-07-18] MEDS ORDERED: D5% in Water 1,000 ML IVC PRN (00:53)
[2017-07-18] MEDS ORDERED: *HR* Dextrose 50 % in Water (Syg) 50 ML SYRINGE IVP PRN (00:53)
[2017-07-18] MEDS: Furosemide 40 MG/4 ML VIAL IVP SCH ×3 (01:09→22:11)
[2017-07-18 01:43] LABS: Basophils % 0.4 %; Eosinophils # 0.1 K/mcL (0.0-0.6); Eosinophils % 1.2 %; Hematocrit 34.5 % (35.3-44.9); Hemoglobin 11.2 g/dL (11.5-15.4); Immature Granulocytes % 0.2 % (0-4); Lymphocytes # 0.7 K/mcL (0.6-4.6); Lymphocytes % 13.8 %; Mean Corpuscular HGB Conc 32.5 g/dL (31.6-35.5); Mean Corpuscular Hemoglobin 27.2 pg (28.0-33.3); Mean Corpuscular Volume 83.7 fL (83.0-100.0); Mean Platelet Volume 8.7 fL (9.4-12.4); Monocytes # 0.7 K/mcL (0.0-1.3); Monocytes % 13.8 %; Neutrophils # 3.6 K/mcL (1.6-8.9); Platelet Count 125 K/mcL (140-400); Red Blood Count 4.12 M/mcL (3.82-4.97); Red Cell Distribution Width 17.2 % (11.5-14.5); Segmented Neutrophils % 70.6 %
[2017-07-18 01:48] LABS: INR 1.4; Prothrombin Time 15.2 Seconds (9.4-12.1)
[2017-07-18 01:57] LABS: Alanine Aminotransferase 21 Units/L (0-55); Albumin 2.1 g/dL (3.5-5.0); Albumin/Globulin Ratio 0.5 (1.1-2.2); Alkaline Phosphatase 123 Units/L (38-126); Aspartate Amino Transferase 28 Units/L (5-34); BUN/Creatinine Ratio 21 (6-26); Bilirubin,Total 2.9 mg/dL (0.2-1.2); Blood Urea Nitrogen 21 mg/dL (7-20); Calcium 8.3 mg/dL (8.6-10.8); Carbon Dioxide 24 mEq/L (19-29); Chloride 99 mEq/L (98-109); Globulin 4.5 g/dL (2.4-3.5); Glucose 210 mg/dL (70-99); Osmolality,Calculated 277 (280-300); Potassium 3.8 mEq/L (3.5-4.5); Sodium 129 mEq/L (136-145); Total Protein 6.6 g/dL (6.0-8.3); eGFR For African Americans > 60 (> 60); eGFR For Non-African Americans 57 (> 60)
[2017-07-18] MEDS: Vancomycin 1,500 MG in D5% in Water 250 ML IVPB SCH (02:08)
[2017-07-18] MEDS ORDERED: Tdap (Boostrix) Vaccine 0.5 ML SYRINGE IM ONE (04:08)
[2017-07-18] MEDS: Famotidine 20 MG/2 ML VIAL IVP SCH ×2 (05:08→18:16)
[2017-07-18] MEDS: *HR* Heparin 5,000 UNIT/ML VIAL SQ SCH ×2 (05:08→18:15)
[2017-07-18] MEDS ORDERED: Vancomycin 1,000 MG in D5% in Water 250 ML IVPB SCH (06:00)
[2017-07-18] MEDS: Insulin LISPRO 300 UNITS/3 ML VIAL SQ SCH ×4 (08:16→22:11)
[2017-07-18] MEDS: Piperacillin/Tazobactam 3.375 GM in D5% in Water (Mini-Bag+) 100 ML IVPB SCH ×2 (08:17→18:16)
[2017-07-18] MEDS: Lactulose Oral Soln 20 GM/30 ML UDC PO SCH ×2 (08:18→22:11)
[2017-07-18] MEDS: Venlafaxine XR (24 HR) 150 MG CAP.ER.24H PO SCH (08:21)
[2017-07-18 08:25] LABS: Bilirubin,Urine Small (Negative); Blood,Urine Trace (Negative); Color,Urine Dark Yellow (Yellow); Glucose,Urine (UA) Normal (Normal); Ketones,Urine Negative (Negative); Leukocyte Esterase,Urine Moderate (Negative); Nitrite,Urine Negative (Negative); Protein,Urine Trace mg/dL (Neg-Trace); Specific Gravity,Urine 1.017 (1.010-1.025)
[2017-07-18 08:27] LABS: Clarity,Urine Clear (Clear)
[2017-07-18 08:28] LABS: Hyaline Casts,Urine Few per lpf (None-Few)
[2017-07-18 08:48] LABS: Bacteria,Urine Many per hpf (None-Few); Squamous Epithelial Cell,Urine Moderate per lpf (None-Few); WBC,Urine 30-50 per hpf (0-3)
[2017-07-18 08:49] LABS: RBC,Urine 0-3 per hpf (0-3)
--- NOTE | 2017-07-18 12:01 | IR Procedure Note ---
Date of procedure: 07/18/17 Consent Obtained: Verbal consent, Written consent Timeout: Correct patient and procedure verified, Correct site verified, Time out performed, Skin prep completed Local anesthetic: Lidocaine 1% Indications: pleural effusion Procedure Performed: thoracentesis Site/Technique: left Results/Findings: 1.5L aspirated Estimated blood loss (cc): 1 Complications: None; Tolerated procedure well Post Procedure Treatment Plan: CXR
--- NOTE | 2017-07-18 12:01 | IR Procedure Note ---
Date of procedure: 07/18/17 Consent Obtained: Verbal consent, Written consent Timeout: Correct patient and procedure verified, Correct site verified, Time out performed, Skin prep completed Local anesthetic: Lidocaine 1% Indications: ascites Procedure Performed: paracentesis Site/Technique: LLQ Results/Findings: amount pending Estimated blood loss (cc): 1 Complications: None; Tolerated procedure well
[2017-07-18 13:48] LABS: BUN/Creatinine Ratio 18 (6-26); Blood Urea Nitrogen 20 mg/dL (7-20); Calcium 8.2 mg/dL (8.6-10.8); Carbon Dioxide 26 mEq/L (19-29); Chloride 100 mEq/L (98-109); Glucose 157 mg/dL (70-99); Osmolality,Calculated 284 (280-300); Potassium 3.5 mEq/L (3.5-4.5); Sodium 134 mEq/L (136-145); eGFR For African Americans > 60 (> 60); eGFR For Non-African Americans 50 (> 60)
--- NOTE | 2017-07-18 13:55 | Podiatry Consult Note ---
Date of Encounter: 07/18/17 Time of Encounter: 10:00 Assessment and Plan (1) Type 2 diabetes mellitus Current visit: No Status: Acute Qualifiers: Diabetes mellitus complication status: without complication Diabetes mellitus shelter insulin use: with shelter use Qualified Code(s): E11.9 - Type 2 diabetes mellitus without complications; Z79.4 - technician terminal and repeater (current) use of insulin (2) Abrasion, left foot, initial encounter Current visit: No Status: Acute (3) Cellulitis Current visit: Yes Status: Acute Assessment: Cellulitis to left foot secondary to abrasion. WBC: 5.1 a febrile. ESR: 37, CRP: 38 Arterial doppler ordered and pending. US Venous: pending. Xray of left foot: Soft tissue swelling with no acute osseous abnormality. Plan: MRI ordered of left foot to rule out fluid collection. Wounds irrigated with saline, pat dry, adaptic applied with 4x4 dry sterile gauze and kerlix. Continue wound care daily. Currently receiving IV Zosyn and Vancomycin. Will f/u with patient after MRI results are back. Qualifiers: Site of cellulitis: extremity Site of cellulitis of extremity: lower extremity Laterality: left Qualified Code(s): L03.116 - Cellulitis of left lower limb (4) Ulcer Current visit: Yes Status: Acute Assesment: Superficial ulcer to the medial aspect of the 1st metatarsal head right foot. Ulcer is not actively draining, no fluctuance, no evidence of bacterial infection. Plan: Ulcer cleansed with saline, pat dry, dry sterile 4x4 gauze applied with medipore. Continue daily wound care. History of Present Illness HPI: Ms. Bautista is a 67 year old female transferred to [place] from [facility] for sob and left foot pain. Patient has a medical history significant for hypertension , diabetes, GERD, ascites and cirrhosis. Podiatry was consulted for cellulitis of the left foot. Patient states she scraped her left foot 3 days ago on the bed. Patient states her dog licked the wound of her foot and she noticed blisters form. Patient denies any pain currently, she states toe #3 left foot is very tender. Patient denies any surgeries on her feet. Patient states she does not see a middle school math teacher. States she does not wear diabetic shoes. Denies numbness or tingling to her feet. Patient states she is awaiting a paracentesis. Past Med Surg Social Fam HX - Past Medical History Medical history: cirrhosis, diabetes, GERD, hypertension Psychiatric history: anxiety, depression - Past Surgical History Surgical History: , cataract, cholecystectomy, hysterectomy, knee replacement - Social History Smoking Status: Never smoker Smokeless Tobacco Status: No Alcohol use: none Drug use: none - Family History Father Name: louie obregon Family Member Ethnicity: Non- Living Status: Age at : 67 Cause of : Cancer Hx Family Cardiac Disorders: Yes ([place]) Hx Family Cancer: Yes ([place]) Medications and Allergies Insulin ASPART [Novolog Flexpen] 0 unit SQ TIDWM 07/03/16 [History] Insulin Glargine,Hum.rec.anlog [Lantus Solostar] 30 - 35 unit SQ HS 07/03/16 [ History] Lisinopril-HCTZ 10-12.5 [Prinzide 10-12.5] 1 each PO DAILY 07/03/16 [History] Omeprazole [PriLOSEC] 20 mg PO DAILY 07/03/16 [History] Venlafaxine XR (24 HR) [Effexor Xr] 150 mg PO DAILY 07/03/16 [History] Gabapentin [Neurontin] 300 mg PO HS 03/30/17 [History] Metformin HCl [Glucophage] 1,000 mg PO DAILY 03/30/17 [History] Ferrous Sulfate 325 mg PO BIDWM #60 tablet 04/01/17 [Rx] Furosemide [Lasix] 40 mg PO DAILY #30 tablet 04/01/17 [Rx] Spironolactone [Aldactone] 100 mg PO DAILY #60 tablet 04/01/17 [Rx] 3 Allergy/AdvReac Type Severity Reaction Status Date / Time acetaminophen [From Percocet] Allergy Nausea Verified 07/17/17 16:50 Oxycodone [From OxyContin] Allergy Hives Verified 07/17/17 16:50 All Systems Reviewed: A 10-system review of systems was performed and is negative for pertinent findings except as documented above in the HPI. Physical Exam - Constitutional Vitals: Temp Pulse Resp BP Pulse Ox 98.5 F 97 17 102/55 98 07/18/17 12:30 07/18/17 12:30 07/18/17 12:30 07/18/17 12:30 07/18/17 12:30 General appearance: cooperative (A&O x3) Exam: Vascular: No evidence of cyanosis, pallor or rubor, Edema graded at 3+/4, Skin Temperature warm, No calf pain with manual compression. capillary refill time is immediate to digits. Neurologic: Sensation intact with light touch to both feet. Integument: Scattered scabs to the dorsum of the right foot, with a superficial ulcer to the medial aspect of the 1st metatarsal head left measuring 0.7 cm in length x 0.5 cm in width, base of wound is white, no pus, light periwound erythema, no streaking. Left foot: superficial wounds to the dorsal aspect, wound #1 base of toe #1 measuring 3.5 cm in length x 1.5 cm in width, base of wound is red and yellow. Wound #2 to extending from the base of toe #2 to toe # 3 measuring 1 cm in length x 2 cm in width, base of wound is red and yellow, wound #3 to the dorsal aspect of toe #2 right foot measuring 1 cm in length x 1 cm in width, base of wound is red. ascending cellulitis to the midfoot with scattered smaller blisters. No flutuance. no pus, no odor. - Extremities Exam Extremities exam: Present: pedal edema (3+), tenderness (toe #3 left foot) Results - Labs Result Diagrams: 07/18/17 01:32 07/18/17 13:18 Labs: Abnormal lab results Hgb 11.2 g/dL (11.5-15.4) L 07/18/17 01:32 Hct 34.5 % (35.3-44.9) L 07/18/17 01:32 MCH 27.2 pg (28.0-33.3) L 07/18/17 01:32 RDW 17.2 % (11.5-14.5) H 07/18/17 01:32 Plt Count 125 K/mcL (140-400) L 07/18/17 01:32 MPV 8.7 fL (9.4-12.4) L 07/18/17 01:32 ESR 37 mm/hr (0-15) H 07/18/17 01:40 PT 15.2 Seconds (9.4-12.1) H 07/18/17 01:32 Sodium 134 mEq/L (136-145) L 07/18/17 13:18 Est GFR (Non-Af Amer) 50 (> 60) L 07/18/17 13:18 Glucose 157 mg/dL (70-99) H 07/18/17 13:18 Calcium 8.2 mg/dL (8.6-10.8) L 07/18/17 13:18 Total Bilirubin 2.9 mg/dL (0.2-1.2) H 07/18/17 01:32 C-Reactive Protein 38 mg/L (Less than 5) H 07/18/17 01:40 Albumin 2.1 g/dL (3.5-5.0) L 07/18/17 01:32 Globulin 4.5 g/dL (2.4-3.5) H 07/18/17 01:32 Albumin/Globulin Ratio 0.5 (1.1-2.2) L 07/18/17 01:32 Urine Blood Trace (Negative) H 07/18/17 08:09 Urine Bilirubin Small (Negative) H 07/18/17 08:09 Urine Urobilinogen 2.0 mg/dL (Normal) H 07/18/17 08:09 Ur Leukocyte Esterase Moderate (Negative) H 07/18/17 08:09 Urine Microscopic WBC 30-50 per hpf (0-3) H 07/18/17 08:09 Ur Squamous Epith Cells Moderate per lpf (None-Few) H 07/18/17 08:09 Urine Bacteria Many per hpf (None-Few) H 07/18/17 08:09 H & H 07/18/17 Range/Units 01:32 Hgb 11.2 L (11.5-15.4) g/dL Hct 34.5 L (35.3-44.9) % All other labs normal. Consult Discharge Plan - Plan Referrals: Latha Fink, [facility] ST[facility]ECUTTER [Primary Care Provider] -
--- NOTE | 2017-07-18 17:31 | Internal Med Progress Note ---
Date of Encounter: 07/18/17 Time of Encounter: 17:29 - Assessment and plan (1) Cellulitis Current Visit: Yes Status: Acute Assessment and plan: cellulitis of left foot continue IV abx (Zosyn and Vanco) podiatry on board and consultation appreciated continue pain control wound care as per podiatry Qualifiers: Site of cellulitis: extremity Site of cellulitis of extremity: lower extremity Laterality: left Qualified Code(s): L03.116 - Cellulitis of left lower limb (2) Pleural effusion Current Visit: No Status: Acute Assessment and plan: s/p thoracentesis f/u pleural fluid analysis O2 supplementation as needed dyspnea improved after thoracentesis will closely monitor respiratory status f/u cxr in am (3) Ascites Current Visit: No Status: Chronic Assessment and plan: s/p paracentesis: drained 5L ascites secondary to cirrhosis of the liver pt reports of requiring recurrent paracentesis, last one was earlier this month Qualifiers: Ascites type: due to alcoholic cirrhosis Qualified Code(s): K70.31 - Alcoholic cirrhosis of liver with ascites (4) Cirrhosis Current Visit: No Status: Chronic Qualifiers: Hepatic cirrhosis type: unspecified hepatic cirrhosis Ascites presence: with ascites Qualified Code(s): K74.60 - Unspecified cirrhosis of liver (5) Type 2 diabetes mellitus Current Visit: No Status: Acute Assessment and plan: continue sliding scale insulin algorithm monitor FS and BG ADA diet Qualifiers: Diabetes mellitus complication status: without complication Diabetes mellitus rn long term care insulin use: with [facility] use Qualified Code(s): E11.9 - Type 2 diabetes mellitus without complications; Z79.4 - detention (current) use of insulin (6) DVT prophylaxis Current Visit: Yes Status: Acute Assessment and plan: Heparin SQ - Subjective Interval history: Patient seen and examined at bedside. s/p paracentesis and thoracentesis. Reports of feeling significantly better after the thoracentesis. Pain appropriately controlled at this time. - Constitutional Vitals: Temp Pulse Resp BP Pulse Ox 98.5 F 97 17 102/55 98 07/18/17 12:30 07/18/17 12:30 07/18/17 12:30 07/18/17 12:30 07/18/17 12:30 General appearance: Present: cooperative, A&O X 3, no acute distress, obese, answers questions appropriately - Head Head exam: Present: atraumatic, normocephalic - Eye Eye exam: Present: conjuntiva pink, sclera anicteric - Respiratory Respiratory exam: Present: decreased breath sounds. Absent: respiratory distress, wheezes - Cardiovascular Cardiovascular exam: Present: RRR, +S1, +S2. Absent: diastolic murmur, gallop, rubs, systolic murmur - GI/Abdominal GI/Abdominal exam: Present: normal bowel sounds, soft, no peritoneal signs. Absent: distended, tenderness - Extremities Exam Extremities exam: Present: pedal edema (b/l feet dressing intact), warm, radial pulses palpable and symmetrical. Absent: calf tenderness - Neurological Exam Neurological exam: Present: alert, oriented X3 - Psychiatric Psychiatric exam: Present: normal affect, normal mood Internal Medicine: Result - Labs CBC & Chem 7: 07/18/17 01:32 07/18/17 13:18 Labs: Short CBC 07/18/17 Range/Units 01:32 WBC 5.1 (4.3-11.1) K/mcL Hgb 11.2 L (11.5-15.4) g/dL Hct 34.5 L (35.3-44.9) % Plt Count 125 L (140-400) K/mcL Neutrophils # 3.6 (1.6-8.9) K/mcL BMP 07/18/17 07/18/17 01:32 13:18 Sodium 129 L 134 L Potassium 3.8 3.5 Chloride 99 100 Carbon Dioxide 24 26 BUN 21 H 20 Creatinine 0.98 1.09 Glucose 210 H 157 H Calcium 8.3 L 8.2 L Cardiac Enzymes 07/18/17 Range/Units 01:32 Troponin I 0.01 (0-0.03) ng/mL Liver Function 07/18/17 Range/Units 01:32 Total Bilirubin 2.9 H (0.2-1.2) mg/dL AST 28 (5-34) Units/L ALT 21 (0-55) Units/L Alkaline Phosphatase 123 (38-126) Units/L Albumin 2.1 L (3.5-5.0) g/dL Urine 07/18/17 Range/Units 08:09 Urine Color Dark Yellow (Yellow) Urine Clarity Clear (Clear) Urine pH 6.0 (5.0-8.0) pH Units Ur Specific Dobson 1.017 (1.010-1.025) Urine Protein Trace (Neg-Trace) mg/dL Urine Glucose (UA) Normal (Normal) mg/dL - ABG Interpretation ABG results: PT/INR, D-dimer PT 15.2 Seconds (9.4-12.1) H 07/18/17 01:32 - Impressions Impressions Paracentesis Ultrasound 07/18/17 00:00 IMPRESSION: Successful ultrasound guided paracentesis. D/ / Nico Artis MD / Nico Artis MD Interpreting Provider: Nico Artis MD Thoracentesis Ultrasound 07/18/17 00:00 IMPRESSION: Successful ultrasound guided thoracentesis. D/ / Nico Artis MD / Nico Artis MD Interpreting Provider: Nico Artis MD Foot X-Ray 07/18/17 04:29 IMPRESSION: Soft tissue swelling with no acute osseous abnormality. D/ / Neymar Greene MD / Neymar Greene MD Interpreting Provider: Neymar Greene MD Chest X-Ray 07/18/17 11:45 IMPRESSION: Left pleural effusion is decreased in the interval. Inhomogeneous opacity in the left upper lobe, likely related to partial re-expansion of the atelectatic left upper lobe. Continued surveillance recommended. Small right pleural effusion. D/ / Jordan Bellamy MD / Jordan Bellamy MD Interpreting Provider: Jordan Bellamy MD Consult Discharge Plan - Plan Referrals: Latha Fink, VACUUM METALIZING SUPERVISOR [Primary Care Provider] -
[2017-07-18 18:09] LABS: RBC,Pleural Fluid 0.037 M/mcL
[2017-07-18 18:11] LABS: RBC,Peritoneal Fluid 0.018 M/mcL
[2017-07-18 18:14] LABS: Amylase,Peritoneal Fluid 21 Units/L (No Ref Range); Glucose,Peritoneal Fluid 200 mg/dL (No Ref Range); LDH,Peritoneal Fluid 64 Units/L (No Ref Range)
[2017-07-18 18:15] LABS: Amylase,Pleural Fluid 27 Units/L (No Ref Range); Glucose,Pleural Fluid 197 mg/dL (No Ref Range); LDH,Pleural Fluid 110 Units/L (No Ref Range); Total Protein,Peritoneal Fluid 1.5 g/dL (No Ref Range); Triglycerides, Pleural Fluid 326 mg/dL (No Ref Range)
[2017-07-18 18:16] LABS: Total Protein,Pleural Fluid 2.6 g/dL (No Ref Range)
[2017-07-18 21:05] LABS: Appearance of Peritoneal Fl CLOUDY (Clear); Appearance of Pleural Fl Cloudy (Clear)
[2017-07-18] MEDS: Gabapentin 300 MG CAPSULE PO SCH (22:11)
[2017-07-18] MEDS: Insulin DETEMIR 100 UNIT/ML X5UNITS SQ SCH (22:41)
[2017-07-19] MEDS: Piperacillin/Tazobactam 3.375 GM in D5% in Water (Mini-Bag+) 100 ML IVPB SCH ×3 (00:48→16:28)
[2017-07-19] MEDS: Vancomycin 1,500 MG in D5% in Water 250 ML IVPB SCH (01:18)
[2017-07-19] MEDS: Famotidine 20 MG/2 ML VIAL IVP SCH (05:49)
[2017-07-19] MEDS: *HR* Heparin 5,000 UNIT/ML VIAL SQ SCH ×2 (05:49→16:33)
[2017-07-19 07:23] LABS: Basophils % 0.4 %; Eosinophils # 0.1 K/mcL (0.0-0.6); Hematocrit 33.9 % (35.3-44.9); Hemoglobin 10.9 g/dL (11.5-15.4); Immature Granulocytes % 0.2 % (0-4); Lymphocytes # 0.6 K/mcL (0.6-4.6); Lymphocytes % 11.5 %; Mean Corpuscular HGB Conc 32.2 g/dL (31.6-35.5); Mean Corpuscular Hemoglobin 27.1 pg (28.0-33.3); Mean Corpuscular Volume 84.3 fL (83.0-100.0); Mean Platelet Volume 9.2 fL (9.4-12.4); Monocytes % 18.4 %; Neutrophils # 3.8 K/mcL (1.6-8.9); Platelet Count 113 K/mcL (140-400); Red Blood Count 4.02 M/mcL (3.82-4.97); Red Cell Distribution Width 16.8 % (11.5-14.5); Segmented Neutrophils % 67.5 %
[2017-07-19 07:36] LABS: BUN/Creatinine Ratio 18 (6-26); Blood Urea Nitrogen 20 mg/dL (7-20); Calcium 7.8 mg/dL (8.6-10.8); Carbon Dioxide 25 mEq/L (19-29); Chloride 101 mEq/L (98-109); Glucose 126 mg/dL (70-99); Magnesium 1.2 mg/dL (1.6-2.6); Osmolality,Calculated 280 (280-300); Phosphorous 2.4 mg/dL (2.3-4.7); Potassium 3.3 mEq/L (3.5-4.5); Sodium 133 mEq/L (136-145); eGFR For African Americans > 60 (> 60); eGFR For Non-African Americans 50 (> 60)
[2017-07-19 08:05] LABS: Platelet Estimate Normal (Normal)
[2017-07-19] MEDS: Insulin LISPRO 300 UNITS/3 ML VIAL SQ SCH ×4 (08:05→22:12)
--- NOTE | 2017-07-19 08:36 | Internal Med Progress Note ---
<Zo Hutchison - Last Filed: 07/19/17 10:59> Date of Encounter: 07/19/17 Time of Encounter: 08:35 - Assessment and plan (1) Cellulitis Current Visit: Yes Status: Acute Assessment and plan: Xray of left foot: Soft tissue swelling with no acute osseous abnormality MRI. Small region of cystic change within the proximal 4th digit with a nonaggressive appearance. No fluid collection or evidence of osteomyelitis. WBC: WNL. Pt afebrile. Continue IV abx (Zosyn and Vanco) podiatry on board and consultation appreciated continue pain control wound care as per podiatry Qualifiers: Site of cellulitis: extremity Site of cellulitis of extremity: lower extremity Laterality: left Qualified Code(s): L03.116 - Cellulitis of left lower limb (2) Pleural effusion Current Visit: No Status: Acute Assessment and plan: s/p thoracentesis SOB improved after thoracentesis O2 sat by pulse oximetry : 92% will closely monitor respiratory status (3) Type 2 diabetes mellitus Current Visit: No Status: Acute Assessment and plan: continue sliding scale insulin monitor FS and BG ADA diet Qualifiers: Diabetes mellitus complication status: without complication Diabetes mellitus long-term insulin use: with long-term use Qualified Code(s): E11.9 - Type 2 diabetes mellitus without complications; Z79.4 - terminal gauger (current) use of insulin (4) Ascites Current Visit: No Status: Chronic Assessment and plan: s/p paracentesis: drained 5L ascites likely secondary to cirrhosis of the liver pt reports of requiring recurrent paracentesis, last one was earlier this month Qualifiers: Ascites type: due to alcoholic cirrhosis Qualified Code(s): K70.31 - Alcoholic cirrhosis of liver with ascites (5) Cirrhosis Current Visit: No Status: Chronic Assessment and plan: Ascites & Effusion likely 2/2 to Cirrhoses Continue medical management and strict I's and O's, daily weight Qualifiers: Hepatic cirrhosis type: unspecified hepatic cirrhosis Ascites presence: with ascites Qualified Code(s): K74.60 - Unspecified cirrhosis of liver (6) DVT prophylaxis Current Visit: Yes Status: Acute Assessment and plan: Heparin SQ - Subjective Interval history: States she slept well overnight. SOB has improved from yesterday. States that she can now wiggle her toes (she could not do this earlier) and lift both her legs. - Constitutional Vitals: Temp Pulse Resp BP Pulse Ox 98.3 F 100 16 116/69 92 07/19/17 06:58 07/19/17 06:58 07/19/17 06:58 07/19/17 06:58 07/19/17 06:58 General appearance: Present: cooperative, A&O X 3, no acute distress, answers questions appropriately (yet with some hesitation ) Exam: appears anxious - Head Head exam: Present: atraumatic, normocephalic - Respiratory Respiratory exam: Present: decreased breath sounds, rales (mild rales in left base). Absent: accessory muscle use, chest wall tenderness, respiratory distress, wheezes, tachypnea - Cardiovascular Cardiovascular exam: Present: RRR, +S1, +S2 - GI/Abdominal GI/Abdominal exam: Present: distended (not tense ), normal bowel sounds, soft, no peritoneal signs. Absent: tenderness - Expanded Lower Extremities Exam Knee exam: Absent: tenderness (pedal edema b/l. Normal capillary refill on toes. Not cold to touch b/l. ) - Skin Additional comments: Skin findings for feet bilaterally: Left -- bandage over feet, wound base on toe #1, erythema and yellow crusting. Toe #2 erythematous, no oozing. Not malodrous. R: Adhesive bandage applied over medial aspect of foot-no oozing, no evidence of active bleeding. Internal Medicine: Result - Labs CBC & Chem 7: 07/19/17 06:26 07/19/17 06:26 Labs: Short CBC 07/19/17 Range/Units 06:26 WBC 5.6 (4.3-11.1) K/mcL Hgb 10.9 L (11.5-15.4) g/dL Hct 33.9 L (35.3-44.9) % Plt Count 113 L (140-400) K/mcL Neutrophils # 3.8 (1.6-8.9) K/mcL BMP 07/18/17 07/19/17 13:18 06:26 Sodium 134 L 133 L Potassium 3.5 3.3 L Chloride 100 101 Carbon Dioxide 26 25 BUN 20 20 Creatinine 1.09 1.10 Glucose 157 H 126 H Calcium 8.2 L 7.8 L - ABG Interpretation ABG results: PT/INR, D-dimer PT 15.2 Seconds (9.4-12.1) H 07/18/17 01:32 - Impressions Impressions Paracentesis Ultrasound 07/18/17 00:00 IMPRESSION: Successful ultrasound guided paracentesis. D/ / Nico Artis MD / Nico Artis MD Interpreting Provider: Nico Artis MD Thoracentesis Ultrasound 07/18/17 00:00 IMPRESSION: Successful ultrasound guided thoracentesis. D/ / Nico Artis MD / Nico Artis MD Interpreting Provider: Nico Artis MD Foot MRI 07/18/17 10:40 IMPRESSION: Cellulitis. No fluid collection or evidence of osteomyelitis. D/ / Monika Mcdonald MD / Monika Mcdonald MD Interpreting Provider: Monika Mcdonald MD Chest X-Ray 07/18/17 11:45 IMPRESSION: Left pleural effusion is decreased in the interval. Inhomogeneous opacity in the left upper lobe, likely related to partial re-expansion of the atelectatic left upper lobe. Continued surveillance recommended. Small right pleural effusion. D/ / Jordan Bellamy MD / Jordan Bellamy MD Interpreting Provider: Jordan Bellamy MD Chest X-Ray 07/19/17 07:00 IMPRESSION: Progressive left lung pleuroparenchymal disease. D/ / Neymar Greene MD / Neymar Greene MD Interpreting Provider: Neymar Greene MD Consult Discharge Plan - Plan Referrals: Latha Fink, TEST EXAMINER [Primary Care Provider] - 07/27/17 10:30 am (please follow up as schedule..) <Scotty Nolan - Last Filed: 07/19/17 18:16> Date of Encounter: 07/19/17 - Constitutional Vitals: Temp Pulse Resp BP Pulse Ox 97.9 F 100 20 93/51 93 07/19/17 16:25 07/19/17 16:25 07/19/17 16:25 07/19/17 18:00 07/19/17 16:25 Internal Medicine: Result - Labs CBC & Chem 7: 07/19/17 06:26 07/19/17 06:26 Labs: Short CBC 07/19/17 Range/Units 06:26 WBC 5.6 (4.3-11.1) K/mcL Hgb 10.9 L (11.5-15.4) g/dL Hct 33.9 L (35.3-44.9) % Plt Count 113 L (140-400) K/mcL Neutrophils # 3.8 (1.6-8.9) K/mcL BMP 07/19/17 06:26 Sodium 133 L Potassium 3.3 L Chloride 101 Carbon Dioxide 25 BUN 20 Creatinine 1.10 Glucose 126 H Calcium 7.8 L - ABG Interpretation ABG results: PT/INR, D-dimer PT 15.2 Seconds (9.4-12.1) H 07/18/17 01:32 - Impressions Impressions Chest X-Ray 07/19/17 07:00 IMPRESSION: Progressive left lung pleuroparenchymal disease. D/ / Neymar Greene MD / Neymar Greene MD Interpreting Provider: Neymar Greene MD - Attending Attestation I examined this patient and my medical decision-making was reviewed with the Resident Physician. I agree with the documented findings, disposition and treatment plan as described except to the extent set forth below.
[2017-07-19] MEDS: Venlafaxine XR (24 HR) 150 MG CAP.ER.24H PO SCH (09:20)
[2017-07-19] MEDS: Lactulose Oral Soln 20 GM/30 ML UDC PO SCH ×2 (09:22→22:12)
[2017-07-19] MEDS: Furosemide 40 MG/4 ML VIAL IVP SCH ×2 (09:22→16:32)
[2017-07-19] MEDS: Magnesium Sulfate 2 GM in D5% in Water 100 ML IVPB SCH ×2 (11:54→13:37)
[2017-07-19] MEDS ORDERED: 0.9 % Sodium Chloride 250 ML IVC ONE (16:23)
[2017-07-19] MEDS ORDERED: 0.9 % Sodium Chloride 250 ML ONE (16:25)
[2017-07-19] MEDS: Albumin 25% 25gram/100mL 25 GM/100 ML IV.SOLN IVC SCH ×2 (17:24→18:24)
--- NOTE | 2017-07-19 17:27 | Podiatry Progress Note ---
Date of Encounter: 07/19/17 Time of Encounter: 17:00 - Assessment and Plan (1) Type 2 diabetes mellitus Current Visit: No Status: Acute Qualifiers: Diabetes mellitus complication status: without complication Diabetes mellitus vermin exterminator insulin use: with vermin exterminator use Qualified Code(s): E11.9 - Type 2 diabetes mellitus without complications; Z79.4 - vermin exterminator (current) use of insulin (2) Abrasion, left foot, initial encounter Current Visit: No Status: Acute (3) Cellulitis Current Visit: Yes Status: Acute Assessment: Cellulitis to left foot secondary to abrasion. Decreased swelling noted today. WBC:5.6 ESR: 37, CRP: 38 Arterial doppler within normal limits. US Venous: Within normal limits. Xray of left foot: Soft tissue swelling with no acute osseous abnormality. MRI of left foot showed cellulitis. No fluid collection or evidence of osteomyelitis. Plan: Wounds irrigated with saline, pat dry, adaptic applied with 4x4 dry sterile gauze and kerlix. Continue wound care daily. Currently receiving IV Zosyn and Vancomycin. Will continue to closely monitory wounds. Qualifiers: Site of cellulitis: extremity Site of cellulitis of extremity: lower extremity Laterality: left Qualified Code(s): L03.116 - Cellulitis of left lower limb (4) Ulcer Current Visit: Yes Status: Acute Assesment: Superficial ulcer to the medial aspect of the 1st metatarsal head right foot. Ulcer is not actively draining, no fluctuance, no evidence of bacterial infection. Plan: Ulcer cleansed with saline, pat dry, dry sterile 4x4 gauze applied with medipore. Continue daily wound care. Subjective Interval history: Podiatry was consulted yesterday for cellulitis and a wound to the left foot. An MRI was ordered the left foot yesterday and negative for a fluid collection or osteomyelitis. Wound care orders were written. Patient is lying in bed with dressings intact to both feet. Patient states her feet are feeling better today and she can wiggle her toes due to decreased swelling. Patient had a paracentesis yesterday. No complaints of pain. Objective - Vital Signs Vital Signs: Vital Signs Temp Pulse Resp BP Pulse Ox 07/19/17 16:56 92/48 07/19/17 16:25 97.9 F 100 20 70/34 93 07/19/17 11:03 99.5 F 100 18 90/53 93 07/19/17 06:58 98.3 F 100 16 116/69 92 07/19/17 04:51 98.8 F 105 17 108/74 93 07/19/17 00:25 97.9 F 94 17 105/65 94 07/18/17 21:15 97.6 F 90 17 97/60 96 Intake and Output 07/19/17 07/19/17 07/19/17 07:59 15:59 23:59 Intake Total 400 / 400 324 / 324 Output Total 1150 / 1150 Balance -750 / -750 324 / 324 Intake: IV Fluids 100 / 100 204 / 204 Magnesium Sulfate 2 GM In 104 / 104 Dextrose 5% 100 ML @ 100 mls/hr IVPB Q2H BRIAN Rx#: [id number] Zosyn 3.375 GM In 100 / 100 100 / 100 Dextrose 5% (Minibag+) 100 ML 100 ML @ 25 mls/hr IVPB Q8HR BRIAN Rx#: [id number] Oral 300 / 300 120 / 120 Output: Catheter 1150 / 1150 Other: Meal Breakfast Percent of Meal Consumed 100% Weight 96.7 kg Blood Glucose* 109 112 186 Patient Weight 07/19/17 23:59 Weight 96.7 kg - Exam Exam: Vascular: No evidence of cyanosis, pallor or rubor, Edema graded at 3+/4, Skin Temperature warm, No calf pain with manual compression. capillary refill time is immediate to digits. Neurologic: Sensation intact with light touch to both feet. Integument: Scattered scabs to the dorsum of the right foot, with a superficial ulcer to the medial aspect of the 1st metatarsal head left measuring 0.7 cm in length x 0.5 cm in width, base of wound is pink, no pus, light periwound erythema, no streaking. Left foot: superficial wounds to the dorsal aspect, wound #1 base of toe #1 measuring 3.5 cm in length x 1.5 cm in width, base of wound is red and yellow. Wound #2 to extending from the base of toe #2 to toe # 3 measuring 1 cm in length x 2 cm in width, base of wound is red and yellow, wound #3 to the dorsal aspect of toe #2 right foot measuring 1 cm in length x 1 cm in width, base of wound is red. ascending cellulitis to the midfoot with scattered smaller blisters. No flutuance. no pus, no odor. - Lab Result Diagrams: 07/19/17 06:26 07/19/17 06:26 Labs: Abnormal lab results Hgb 10.9 g/dL (11.5-15.4) L 07/19/17 06:26 Hct 33.9 % (35.3-44.9) L 07/19/17 06:26 MCH 27.1 pg (28.0-33.3) L 07/19/17 06:26 RDW 16.8 % (11.5-14.5) H 07/19/17 06:26 Plt Count 113 K/mcL (140-400) L 07/19/17 06:26 MPV 9.2 fL (9.4-12.4) L 07/19/17 06:26 ESR 37 mm/hr (0-15) H 07/18/17 01:40 PT 15.2 Seconds (9.4-12.1) H 07/18/17 01:32 Sodium 133 mEq/L (136-145) L 07/19/17 06:26 Potassium 3.3 mEq/L (3.5-4.5) L 07/19/17 06:26 Est GFR (Non-Af Amer) 50 (> 60) L 07/19/17 06:26 Glucose 126 mg/dL (70-99) H 07/19/17 06:26 POC Glucose 149 (58-89) H 07/18/17 11:18 Calcium 7.8 mg/dL (8.6-10.8) L 07/19/17 06:26 Magnesium 1.2 mg/dL (1.6-2.6) L 07/19/17 06:26 Total Bilirubin 2.9 mg/dL (0.2-1.2) H 07/18/17 01:32 C-Reactive Protein 38 mg/L (Less than 5) H 07/18/17 01:40 Albumin 2.1 g/dL (3.5-5.0) L 07/18/17 01:32 Globulin 4.5 g/dL (2.4-3.5) H 07/18/17 01:32 Albumin/Globulin Ratio 0.5 (1.1-2.2) L 07/18/17 01:32 Urine Blood Trace (Negative) H 07/18/17 08:09 Urine Bilirubin Small (Negative) H 07/18/17 08:09 Urine Urobilinogen 2.0 mg/dL (Normal) H 07/18/17 08:09 Ur Leukocyte Esterase Moderate (Negative) H 07/18/17 08:09 Urine Microscopic WBC 30-50 per hpf (0-3) H 07/18/17 08:09 Ur Squamous Epith Cells Moderate per lpf (None-Few) H 07/18/17 08:09 Urine Bacteria Many per hpf (None-Few) H 07/18/17 08:09 Peritoneal RBC 0.018 M/mcL (0.000-0.002) H 07/18/17 11:37 Periton Tot Nuc Cells 518 TNC/mcL (0-300) H 07/18/17 11:37 Pleural Appearance Cloudy (Clear) A 07/18/17 11:37 Pleural RBC 0.037 M/mcL (0.000-0.002) H 07/18/17 11:37 Microbiology, Last 48 Hours 07/18/17 11:37 Body Fluid Culture - Preliminary Pleural Fluid 07/18/17 11:50 Body Fluid Culture - Preliminary Peritoneal Fluid 07/18/17 01:32 Blood Culture - Preliminary Peripheral Venipuncture No growth. 07/18/17 01:32 Blood Culture - Preliminary Peripheral Venipuncture No growth. Consult Discharge Plan - Plan Referrals: Latha Fink, RAILROAD ACCOUNTANT [Primary Care Provider] - 07/27/17 10:30 am (please follow up as schedule..)
[2017-07-19] MEDS: Gabapentin 300 MG CAPSULE PO SCH (22:12)
[2017-07-19] MEDS: Insulin DETEMIR 100 UNIT/ML X5UNITS SQ SCH (22:12)
[2017-07-20 00:59] LABS: Basophils % 0.5 %; Eosinophils # 0.1 K/mcL (0.0-0.6); Eosinophils % 1.3 %; Hematocrit 34.1 % (35.3-44.9); Immature Granulocytes % 0.3 % (0-4); Lymphocytes # 0.9 K/mcL (0.6-4.6); Lymphocytes % 14.3 %; Mean Corpuscular HGB Conc 32.3 g/dL (31.6-35.5); Mean Corpuscular Hemoglobin 27.6 pg (28.0-33.3); Mean Corpuscular Volume 85.5 fL (83.0-100.0); Mean Platelet Volume 8.5 fL (9.4-12.4); Monocytes % 16.1 %; Neutrophils # 4.2 K/mcL (1.6-8.9); Platelet Count 113 K/mcL (140-400); Red Blood Count 3.99 M/mcL (3.82-4.97); Red Cell Distribution Width 16.6 % (11.5-14.5); Segmented Neutrophils % 67.5 %
[2017-07-20 01:13] LABS: Calcium 8.1 mg/dL (8.6-10.8); Potassium 3.3 mEq/L (3.5-4.5)
[2017-07-20] MEDS: Vancomycin 1,500 MG in D5% in Water 250 ML IVPB SCH (01:28)
[2017-07-20] MEDS: Piperacillin/Tazobactam 3.375 GM in D5% in Water (Mini-Bag+) 100 ML IVPB SCH ×2 (01:28→08:37)
[2017-07-20] MEDS: *HR* Heparin 5,000 UNIT/ML VIAL SQ SCH (05:41)
--- NOTE | 2017-07-20 07:03 | Venous Imaging Report ---
LE Venous Duplex Patient Name:Nikky Bautista Order Number:[id number] Procedure Date:07/18/2017 Date:2Age:67 yrs Gender:Female Location:[facility] Room #: 2A13 Bill Hiker:Ashley Randolph RDCS Referring MD:Kvng James MD Reading MD:Julius Burrell MD Primary Indications:Cellulitis Secondary Indications: Risk Factors Yes/No Hypertension Diabetes Impressions: Bilateral lower extremity: normal superficial and deep exam. Recommendations: After imaging the patient returned to their room. Findings Venous Duplex Results: Right: The right peroneal and right lesser saphenous veins were not well visualized. Left: The left peroneal and left lesser saphenous veins were not well visualized. Prior Study: No prior study available for comparison. Lower Extremity Venous Duplex Side Vein Compress Spontaneous Flow Augment Diameter (cm) Depth (cm) Right Distal Iliac Normal Yes Phasic Yes Right Common Femoral Normal Yes Phasic Yes Right Superficial Femoral Normal Yes Phasic Yes Right Popliteal Normal Yes Phasic Yes Right Posterior Tibial Normal Yes Phasic Yes Right Peroneal Normal Yes Phasic Yes Right Saphenofemoral [place] Normal Yes Phasic Yes Right Great Saphenous Normal Yes Phasic Yes Right Lesser Saphenous Normal Yes Phasic Yes Left Distal Iliac Normal Yes Phasic Yes Left Common Femoral Normal Yes Phasic Yes Left Superficial Femoral Normal Yes Phasic Yes Left Popliteal Normal Yes Phasic Yes Left Posterior Tibial Normal Yes Phasic Yes Left Peroneal Normal Yes Phasic Yes Left Saphenofemoral [place] Normal Yes Phasic Yes Left Great Saphenous Normal Yes Phasic Yes Left Lesser Saphenous Normal Yes Phasic Yes Updated by Julius Burrell MD on 07/20/2017 6:58:39 AM electronically signed on 07/20/2017 6:59:09 AM with status of Final
[2017-07-20] MEDS: Venlafaxine XR (24 HR) 150 MG CAP.ER.24H PO SCH (08:36)
[2017-07-20] MEDS: Furosemide 40 MG/4 ML VIAL IVP SCH (08:37)
[2017-07-20] MEDS: Lactulose Oral Soln 20 GM/30 ML UDC PO SCH (08:48)
[2017-07-20] MEDS: Insulin LISPRO 300 UNITS/3 ML VIAL SQ SCH ×2 (09:08→12:02)
--- NOTE | 2017-07-20 11:20 | Arterial Study Report ---
LE Arterial Physiologic Study Patient Name:Nikky Bautista Order Number:[id number] Procedure Date:07/18/2017 Date:1950ge:67 yrs Gender:Female Lt BP:114 / mmHg Rt.BP:112 / mmHgHeart Rate: Location:[facility] Room #: 2A13 Printer'S Assistant:Ashley Randolph RDCS Referring MD:Marissa Bloom MD Reading MD:Julius uBrrell MD Primary Indications:Cellulitis Risk Factors Yes/No Hypertension Diabetes Impressions: 1) Bilateral lower extremities waveform demonstrates normal hemodynamics. 2) bilateral Ankle Brachial Index is normal. 3) Overall Impression: Arterial hemodynamics are well maintained at rest. Recommendations: After imaging the patient returned to their room. Findings LE Arterial Physiologic Exam: PVR: Right: The PVR waveforms are normal in the right ankle. Left: The PVR waveforms are normal in the left ankle. Prior Study: No prior study available for comparison. Segmental Pressures Side Location Pressure Index Result Right Posterior Tibial 110 0.96 Normal Right Dorsalis Pedis 183 1.61 Normal Left Posterior Tibial 153 1.34 Normal Left Dorsalis Pedis 143 1.25 Normal Ankle Brachial Index Right Systolic Diastolic DANIEL Brachial 112 1.61 Dorsalis Pedis 183 1.61 Posterior Tibial 110 0.96 Left Systolic Diastolic DANIEL Brachial 114 1.34 Dorsalis Pedis 143 1.25 Posterior Tibial 153 1.34 Updated by Julius Burrell MD on 07/20/2017 11:15:49 AM with Status of Final electronically signed on 07/20/2017 11:16:06 AM with status of Final
--- NOTE | 2017-07-20 13:33 | Discharge Summary ---
<Zo Hutchison - Last Filed: 07/20/17 16:35> Date of Encounter: 07/20/17 Time of Encounter: 13:32 - Discharge Diagnosis (1) Cellulitis Priority: Primary Status: Acute Qualifiers: Site of cellulitis: extremity Site of cellulitis of extremity: lower extremity Laterality: left Qualified Code(s): L03.116 - Cellulitis of left lower limb (2) Pleural effusion Priority: Primary Status: Resolved (3) Type 2 diabetes mellitus Priority: Secondary Status: Chronic Qualifiers: Diabetes mellitus complication status: without complication Diabetes mellitus terminal system operator insulin use: with mcfp use Qualified Code(s): E11.9 - Type 2 diabetes mellitus without complications; Z79.4 - technician terminal and repeater (current) use of insulin (4) Cirrhosis Priority: Primary Status: Chronic Qualifiers: Hepatic cirrhosis type: unspecified hepatic cirrhosis Ascites presence: with ascites Qualified Code(s): K74.60 - Unspecified cirrhosis of liver (5) Ascites Priority: Primary Status: Chronic Qualifiers: Ascites type: other type Qualified Code(s): R18.8 - Other ascites (6) DVT prophylaxis Priority: Secondary Status: Acute - Discharge Medications Prescriptions: Levofloxacin [Levaquin] 500 mg PO DAILY #10 tablet Home Medications: Insulin ASPART [Novolog Flexpen] 0 unit SQ TIDWM 07/03/16 [History] Insulin Glargine,Hum.rec.anlog [Lantus Solostar] 30 - 35 unit SQ HS 07/03/16 [ History] Lisinopril-HCTZ 10-12.5 [Prinzide 10-12.5] 1 each PO DAILY 07/03/16 [History] Omeprazole [PriLOSEC] 20 mg PO DAILY 07/03/16 [History] Venlafaxine XR (24 HR) [Effexor Xr] 150 mg PO DAILY 07/03/16 [History] Gabapentin [Neurontin] 300 mg PO HS 03/30/17 [History] Metformin HCl [Glucophage] 1,000 mg PO DAILY 03/30/17 [History] Ferrous Sulfate 325 mg PO BIDWM #60 tablet 04/01/17 [Rx] Furosemide [Lasix] 40 mg PO DAILY #30 tablet 04/01/17 [Rx] Spironolactone [Aldactone] 100 mg PO DAILY #60 tablet 04/01/17 [Rx] Lactulose 10 gm PO BID udc 07/20/17 [Rx] Levofloxacin [Levaquin] 500 mg PO DAILY #10 tablet 07/20/17 [Rx] Allergies/Adverse Reactions: 3 Allergy/AdvReac Type Severity Reaction Status Date / Time acetaminophen [From Percocet] Allergy Nausea Verified 07/17/17 16:50 Oxycodone [From OxyContin] Allergy Hives Verified 07/17/17 16:50 Procedures/tests Complete & Pending: Procedures Performed prior 72 hours Category Date Time Status IR paracentesis ultrasound [IR] Routine IR 07/18/17 Completed IR thoracentesis ultrasound [IR] Routine IR 07/18/17 Completed MR foot LT wo/w con [MR] Stat MRI 07/18/17 10:40 Completed ECG 12 lead ECG [ECG] AM 0600 Y 07/18/17 06:00 Ordered EV ankle brachial index Routine Y 07/18/17 Completed EV venous imaging LE BI Stat Y 07/18/17 00:07 Completed Paracentesis Ultrasound 07/18/17 00:00 IMPRESSION: Successful ultrasound guided paracentesis. D/ / Nico Artis MD / Nico Artis MD Interpreting Provider: Nico Artis MD Thoracentesis Ultrasound 07/18/17 00:00 IMPRESSION: Successful ultrasound guided thoracentesis. D/ / Nico Artis MD / Nico Artis MD Interpreting Provider: Nico Artis MD Foot X-Ray 07/18/17 04:29 IMPRESSION: Soft tissue swelling with no acute osseous abnormality. D/ / Neymar Greene MD / Neymar Greene MD Interpreting Provider: Neymar Greene MD Foot MRI 07/18/17 10:40 IMPRESSION: Cellulitis. No fluid collection or evidence of osteomyelitis. D/ / Monika Mcdonald MD / Monika Mcdonald MD Interpreting Provider: Monika Mcdonald MD Chest X-Ray 07/19/17 07:00 IMPRESSION: Progressive left lung pleuroparenchymal disease. D/ / Neymar Greene MD / Neymar Greene MD Interpreting Provider: Neymar Greene MD Date of admission: 07/17/17 23:35 Primary care physician: Latha Fink CNP Consults: 07/17/17 23:48 Consult to Interventional Radiology [CONS] Routine Consulting Provider: Radiology Interventional Cols Reason for Consult: ASCITES-PARACENTESIS, PLEURAL EFFUSION-THORACENTESIS Call Completed: No Consult to Podiatry [CONS] Routine Consulting Provider: Podiatry [facility] Reason for Consult: LEFT FOOT CELLULITIS, INJURY Call Completed: No 07/18/17 14:56 Consult to Cleaning And Washing Equipment Operator [CONS] Routine Reason for SW Consult: DISCHARGE PLANNING 07/20/17 10:45 Consult to Occupational Therapy [CONS] Routine Comment: Evaluate, develop and implement POC Reason for Consult: weakness Consult to Physical Therapy [CONS] Routine Comment: Evaluate, develop and implement POC Reason for Consult: weakness Discharging clinician: Zo Hutchison Anticipated date of discharge: 07/20/17 - Patient Status Disposition: Home Health Service Condition: Fair Functional capacity at discharge: uses cane/walker Overall status at discharge: patient is progressing back to baseline - Discharge Instructions Instructions: Levofloxacin (By mouth), Cellulitis (DC) Follow Up With: Latha Fink CNP [Primary Care Provider] - 07/27/17 10:30 am (please follow up as schedule..) Additional Instructions: -Please follow up with your PCP in 3 days for follow up of wound sites -For treatment, please take 500 mg PO Levofloxacin daily for the next ten days -Please return to the emergency room immediately in case of worsening of symptoms, such as fever, increased redness on feet, skin pallor, increased discomfort in the abdomen or difficulty breathing - Diet and Activity Activity: ambulate only with your walker, as per physical therapy, resume usual activities as tolerated Diet: advance to your usual diet, diabetic diet, low fat, low cholesterol Interval History: No acute events overnight. States range of motion and mobility of feet improved. Patient had discussion with attending and conveyed wishes for course of treatment. PM: PT/OT evaluated pt this evening. Hospital course: Ms. Bautista is a 67 year old female with a past medical history of hypertension , diabetes, GERD and cirrhosis. She presented as a transfer from [facility] with shortness of breath and bilateral foot complaints. Initial workup in the ED was significant for large left pleural effusion. CXR demonstrated partial consolidation of the left upper and lower lobe. She was transferred here for further management of her ascites and pleural effusion. IR was consulted for thoracentesis and paracentesis. Patient's SOB improved following successful thoracentesis. Patient additionally presented with acute left foot cellulitis secondary to abrasion. Xray of left foot: Soft tissue swelling with no acute osseous abnormality/ MRI. Small region of cystic change within the proximal 4th digit with a nonaggressive appearance. There was no fluid collection or evidence of osteomyelitis. She was admitted with initiation of treatment with IV antibiotics. Podiatry was on consult. Wounds were irrigated with saline, patted dry, covered with 4x4 dry sterile gauze and kerlix. Wound care was performed daily. Physical and Occupational Therapy evaluated patient's rehabilitation needs as an inpatient. - Time Spent with Patient Total time spent providing and/or coordinating discharge services: - Constitutional Vitals: Temp Pulse Resp BP Pulse Ox 98.4 F 93 17 92/47 91 07/20/17 06:59 07/20/17 06:59 07/20/17 06:59 07/20/17 06:59 07/20/17 06:59 General appearance: Present: cooperative, A&O X 3, no acute distress, answers questions appropriately (yet with some hesitation ) - Head Head exam: Present: atraumatic, normocephalic - Respiratory Respiratory exam: Present: CTAB. Absent: accessory muscle use, rales, rhonchi, wheezes - Cardiovascular Cardiovascular exam: Present: RRR, +S1, +S2. Absent: gallop, rubs, tachycardia - GI/Abdominal GI/Abdominal exam: Present: distended, normal bowel sounds. Absent: firm, tenderness - Expanded Lower Extremities Exam Foot/Toe exam: Present: erythema (Continued good toe movements. Skin findings for feet bilaterally: Left -- bandage over feet, wound base on toe#1, erythema and yellow crusting. Toe #2 erythematous, no oozing. Not malodrous. R: Adhesive bandage applied over medial aspect of foot-no oozing, no evidence of active bleeding. Examined with adhesive removed: no purulent drainage, no active bleeding. ) <Scotty Nolan P - Last Filed: 07/20/17 17:31> Date of Encounter: 07/20/17 Procedures/tests Complete & Pending: Procedures Performed prior 72 hours Category Date Time Status IR paracentesis ultrasound [IR] Routine IR 07/18/17 Completed IR thoracentesis ultrasound [IR] Routine IR 07/18/17 Completed MR foot LT wo/w con [MR] Stat MRI 07/18/17 10:40 Completed ECG 12 lead ECG [ECG] AM 0600 Y 07/18/17 06:00 Ordered EV ankle brachial index Routine Y 07/18/17 Completed EV venous imaging LE BI Stat Y 07/18/17 00:07 Completed Date of admission: 07/17/17 23:35 Primary care physician: Latha Fink CNP Consults: 07/17/17 23:48 Consult to Interventional Radiology [CONS] Routine Consulting Provider: Radiology Interventional Cols Reason for Consult: ASCITES-PARACENTESIS, PLEURAL EFFUSION-THORACENTESIS Call Completed: No Consult to Podiatry [CONS] Routine Consulting Provider: Podiatry [facility] Reason for Consult: LEFT FOOT CELLULITIS, INJURY Call Completed: No 07/18/17 14:56 Consult to Cleaning And Washing Equipment Operator [CONS] Routine Reason for SW Consult: DISCHARGE PLANNING 07/20/17 10:45 Consult to Occupational Therapy [CONS] Routine Comment: Evaluate, develop and implement POC Reason for Consult: weakness Consult to Physical Therapy [CONS] Routine Comment: Evaluate, develop and implement POC Reason for Consult: weakness Hospital course: Ms. Bautista is a 67 year old female - Time Spent with Patient Total time spent providing and/or coordinating discharge services: - Constitutional Vitals: Temp Pulse Resp BP Pulse Ox 97.2 F L 92 18 97/57 94 07/20/17 16:03 07/20/17 16:03 07/20/17 16:03 07/20/17 16:03 07/20/17 16:03 - Attending Attestation I examined this patient and my medical decision-making was reviewed with the Resident Physician. I agree with the documented findings, disposition and treatment plan as described except to the extent set forth below.
--- NOTE | 2017-07-20 15:46 | Podiatry Progress Note ---
Date of Encounter: 07/20/17 Time of Encounter: 13:45 - Assessment and Plan (1) Type 2 diabetes mellitus Current Visit: No Status: Chronic Qualifiers: Diabetes mellitus complication status: without complication Diabetes mellitus long-term insulin use: with long-term use Qualified Code(s): E11.9 - Type 2 diabetes mellitus without complications; Z79.4 - USP (current) use of insulin (2) Abrasion, left foot, initial encounter Current Visit: No Status: Acute (3) Cellulitis Current Visit: Yes Status: Acute Assessment: Cellulitis to left foot secondary to abrasion. Decreased swelling noted today. WBC:5.6 ESR: 37, CRP: 38 Arterial doppler within normal limits. US Venous: Within normal limits. Xray of left foot: Soft tissue swelling with no acute osseous abnormality. MRI of left foot showed cellulitis. No fluid collection or evidence of osteomyelitis. Plan: Wounds irrigated with saline and hibiclens, pat dry, adaptic applied with 4x4 dry sterile gauze and kerlix with suzan wrap. Continue wound care daily. Currently receiving IV Zosyn and Vancomycin. Patient will need a post op shoe to the left foot upon discharge. Follow up with Sha Nevarez CNP in Podiatry clinic a week after discharge from the hospital. Qualifiers: Site of cellulitis: extremity Site of cellulitis of extremity: lower extremity Laterality: left Qualified Code(s): L03.116 - Cellulitis of left lower limb (4) Ulcer Current Visit: Yes Status: Acute Assesment: Superficial ulcer to the medial aspect of the 1st metatarsal head right foot. Ulcer is not actively draining, no fluctuance, no evidence of bacterial infection. Plan: Ulcer cleansed with saline, pat dry, dry sterile 4x4 gauze applied with medipore. Continue daily wound care. Subjective Interval history: Podiatry was consulted two days ago for cellulitis and a wound to the left foot. An MRI was ordered the left foot and negative for a fluid collection or osteomyelitis. Wound care orders were written. Patient is lying in bed with dressings intact to both feet. Patient states her feet are feeling better and she was up walking with PT. No complaints of fever, chills, or sob. Objective - Vital Signs Vital Signs: Vital Signs Temp Pulse Resp BP Pulse Ox 07/20/17 06:59 98.4 F 93 17 92/47 91 07/19/17 23:33 98.7 F 99 18 97/54 94 07/19/17 19:32 98/52 07/19/17 19:25 99.1 F 100 16 96/49 92 07/19/17 18:00 93/51 07/19/17 16:56 92/48 07/19/17 16:25 97.9 F 100 20 70/34 93 Intake and Output 07/19/17 07/20/17 07/20/17 23:59 07:59 15:59 Intake Total 320 / 320 100 / 100 170 / 170 Output Total 475 / 475 0 / 0 500 / 500 Balance -155 / -155 100 / 100 -330 / -330 Intake: IV Fluids 200 / 200 100 / 100 Flexbumin 25 gm In 100 ml @ 60 100 / 100 mls/hr IVC .Q1H40M [facility] Rx#: [id number] Zosyn 3.375 GM In Dextrose 5% ( 100 / 100 100 / 100 Minibag+) 100 ML 100 ML @ 25 mls/hr IVPB Q8HR [facility] Rx#: [id number] Oral 120 / 120 170 / 170 Output: Urine 0 / 0 0 / 0 500 / 500 Urethral ([place]) 0 / 0 0 / 0 Catheter 475 / 475 Other: Meal Vanilla ice cream, elsi grahams Lunch Percent of Meal Consumed 100% 80% Blood Glucose* 204 156 - Exam Exam: Vascular: No evidence of cyanosis, pallor or rubor, Edema graded at 3+/4, Skin Temperature warm, No calf pain with manual compression. capillary refill time is immediate to digits. Neurologic: Sensation intact with light touch to both feet. Integument: Scattered scabs to the dorsum of the right foot, with a superficial ulcer to the medial aspect of the 1st metatarsal head left measuring 0.7 cm in length x 0.5 cm in width, base of wound is pink, no pus, light periwound erythema, no streaking. Left foot: superficial wounds to the dorsal aspect, wound #1 base of toe #1 measuring 3.5 cm in length x 1.5 cm in width, base of wound is red and yellow. Wound #2 to extending from the base of toe #2 to toe # 3 measuring 1 cm in length x 2 cm in width, base of wound is red , wound #3 to the dorsal aspect of toe #2 left foot measuring 1 cm in length x 1 cm in width, base of wound is red. ascending cellulitis to the midfoot with scattered smaller blisters. No flutuance. no pus, no odor. Ecchymosis to toes #4,#5 of the left foot. - Lab Result Diagrams: 07/20/17 00:44 07/20/17 00:44 Labs: Abnormal lab results Hgb 11.0 g/dL (11.5-15.4) L 07/20/17 00:44 Hct 34.1 % (35.3-44.9) L 07/20/17 00:44 MCH 27.6 pg (28.0-33.3) L 07/20/17 00:44 RDW 16.6 % (11.5-14.5) H 07/20/17 00:44 Plt Count 113 K/mcL (140-400) L 07/20/17 00:44 MPV 8.5 fL (9.4-12.4) L 07/20/17 00:44 ESR 37 mm/hr (0-15) H 07/18/17 01:40 PT 15.2 Seconds (9.4-12.1) H 07/18/17 01:32 Sodium 133 mEq/L (136-145) L 07/20/17 00:44 Potassium 3.3 mEq/L (3.5-4.5) L 07/20/17 00:44 BUN 23 mg/dL (7-20) H 07/20/17 00:44 Creatinine 1.37 mg/dL (0.57-1.11) H 07/20/17 00:44 Est GFR ( Amer) 47 (> 60) L 07/20/17 00:44 Est GFR (Non-Af Amer) 39 (> 60) L 07/20/17 00:44 Glucose 212 mg/dL (70-99) H 07/20/17 00:44 POC Glucose 194 (58-89) H 07/20/17 12:00 Calcium 8.1 mg/dL (8.6-10.8) L 07/20/17 00:44 Magnesium 1.2 mg/dL (1.6-2.6) L 07/19/17 06:26 Total Bilirubin 2.9 mg/dL (0.2-1.2) H 07/18/17 01:32 C-Reactive Protein 38 mg/L (Less than 5) H 07/18/17 01:40 Albumin 2.1 g/dL (3.5-5.0) L 07/18/17 01:32 Globulin 4.5 g/dL (2.4-3.5) H 07/18/17 01:32 Albumin/Globulin Ratio 0.5 (1.1-2.2) L 07/18/17 01:32 Urine Blood Trace (Negative) H 07/18/17 08:09 Urine Bilirubin Small (Negative) H 07/18/17 08:09 Urine Urobilinogen 2.0 mg/dL (Normal) H 07/18/17 08:09 Ur Leukocyte Esterase Moderate (Negative) H 07/18/17 08:09 Urine Microscopic WBC 30-50 per hpf (0-3) H 07/18/17 08:09 Ur Squamous Epith Cells Moderate per lpf (None-Few) H 07/18/17 08:09 Urine Bacteria Many per hpf (None-Few) H 07/18/17 08:09 Peritoneal RBC 0.018 M/mcL (0.000-0.002) H 07/18/17 11:37 Periton Tot Nuc Cells 518 TNC/mcL (0-300) H 07/18/17 11:37 Pleural Appearance Cloudy (Clear) A 07/18/17 11:37 Pleural RBC 0.037 M/mcL (0.000-0.002) H 07/18/17 11:37 Microbiology, Last 48 Hours 07/18/17 11:50 Body Fluid Culture - Preliminary Peritoneal Fluid 07/18/17 11:37 Body Fluid Culture - Preliminary Pleural Fluid 07/18/17 01:32 Blood Culture - Preliminary Peripheral Venipuncture No growth. 07/18/17 01:32 Blood Culture - Preliminary Peripheral Venipuncture No growth. Consult Discharge Plan - Plan Instructions: Levofloxacin (By mouth) Additional Instructions: -Please follow up with your PCP in 3 days for follow up of wound sites -For treatment, please take 500 mg PO Levofloxacin daily for the next ten days -Please return to the emergency room immediately in case of worsening of symptoms, such as fever, increased redness on feet, skin pallor, increased discomfort in the abdomen or difficulty breathing Referrals: Latha Fink, EDELMIRA [Primary Care Provider] - 07/27/17 10:30 am (please follow up as schedule..) Prescriptions: Levofloxacin [Levaquin] 500 mg PO DAILY #10 tablet
[2017-07-20 16:04] VITALS: BP 97/57
[2017-07-20] MEDS ORDERED: Aminoglycoside Consult 1 EACH MC ONE (16:39)
--- NOTE | 2017-07-20 17:33 | Physician Discharge Referral ---
Home Health/Hosp Referral Info Transfer to: Home Health - Diagnosis (1) Ascites Priority: Primary Status: Acute (2) Cellulitis Priority: Primary Status: Acute (3) Hypertension Priority: Secondary Status: Chronic (4) Type 2 diabetes mellitus Priority: Secondary Status: Chronic (5) Pleural effusion Priority: Secondary Status: Resolved - Respiratory Orders Smoking Cessation: Smoking cessation has been advised. For more information, call the [place] Tobacco Quit Line at 8-931-JYHP-NOW. - Services Needed Following services are medically necessary services: Home Health Aide, Physical Therapy - Transfer Medications Prescriptions: Levofloxacin [Levaquin] 500 mg PO DAILY #10 tablet Home Medications: Insulin ASPART [Novolog Flexpen] 0 unit SQ TIDWM 07/03/16 [History] Insulin Glargine,Hum.rec.anlog [Lantus Solostar] 30 - 35 unit SQ HS 07/03/16 [ History] Lisinopril-HCTZ 10-12.5 [Prinzide 10-12.5] 1 each PO DAILY 07/03/16 [History] Omeprazole [PriLOSEC] 20 mg PO DAILY 07/03/16 [History] Venlafaxine XR (24 HR) [Effexor Xr] 150 mg PO DAILY 07/03/16 [History] Gabapentin [Neurontin] 300 mg PO HS 03/30/17 [History] Metformin HCl [Glucophage] 1,000 mg PO DAILY 03/30/17 [History] Ferrous Sulfate 325 mg PO BIDWM #60 tablet 04/01/17 [Rx] Furosemide [Lasix] 40 mg PO DAILY #30 tablet 04/01/17 [Rx] Spironolactone [Aldactone] 100 mg PO DAILY #60 tablet 04/01/17 [Rx] Lactulose 10 gm PO BID udc 07/20/17 [Rx] Levofloxacin [Levaquin] 500 mg PO DAILY #10 tablet 07/20/17 [Rx] Allergies/Adverse Reactions: 3 Allergy/AdvReac Type Severity Reaction Status Date / Time acetaminophen [From Percocet] Allergy Nausea Verified 07/17/17 16:50 Oxycodone [From OxyContin] Allergy Hives Verified 07/17/17 16:50 Certification: Further, I certify that my clinical findings support that this patient is homebound (i.e. absences from home require considerable and taxing effort and are for medical reasons or mosque services or infrequently or short duration when for other reasons) because: Homebound Reason: Patient requires assistance of a person or device to safely leave home Attestation: My signature below is to certify that this patient is under my care and that I, or nurse practitioner, or a physician's senior care assistant working with me, has a face-to -face encounter with this patient.
== END 2017-07-20 16:40 | disposition home health service (06) | DRG 433 ==
LOC: 3NENU → 2ANU 07-18 15:36
PROVIDERS: ADMIT Family Medicine; ATTEND Internal Medicine

== ENCOUNTER 2017-07-31 18:37 | Inpatient (IN) ==
[2017-07-31] MEDS ORDERED: *HR* Morphine 2 MG/ML SYRINGE IVP PRN (21:40)
[2017-07-31] MEDS ORDERED: Ondansetron 4 MG/2 ML VIAL IVP PRN (21:40)
[2017-07-31] MEDS ORDERED: Naloxone 0.4 MG/ML INJ IVP PRN (21:40)
[2017-07-31] MEDS ORDERED: D5% in Water 1,000 ML IVC PRN (21:50)
[2017-07-31] MEDS ORDERED: *HR* Dextrose 50 % in Water (Syg) 50 ML SYRINGE IVP PRN (21:50)
[2017-07-31] MEDS ORDERED: Dextrose Gel 15 GM PO PRN ×2 (21:50)
--- NOTE | 2017-07-31 22:14 | Internal Med History&Physical ---
Date of Encounter: 07/31/17 Time of Encounter: 22:00 Assessment and Plan (1) Fall Current visit: Yes Status: Acute Fall - possibly secondary to UTI present on admission - with no obvious injuries Continue IV Rocephin empirically Cultures - pending Chest x-ray - moderate left-sided pleural effusion CT head - no acute intracranial abnormality Lactic acid - 3.2 WBC - 8.5 Cardiac telemetry, pulse ox, labs in a.m., monitor closely, continue home meds Qualifiers: Encounter type: initial encounter Qualified Code(s): W19.XXXA - Unspecified fall, initial encounter (2) Cirrhosis Current visit: No Status: Chronic Recently diagnosed cirrhosis - likely secondary to TONEY - with massive ascites and pleural effusion Child-Salcedo - Class C, MELD Na score ~ 20 Continue Lasix, Aldactone, fluid restriction, strict I's and O's, daily weight Interventional radiology consult - for paracentesis Cardiac telemetry, continuous pulse ox, labs in a.m., monitor closely Qualifiers: Hepatic cirrhosis type: unspecified hepatic cirrhosis Ascites presence: with ascites Qualified Code(s): K74.60 - Unspecified cirrhosis of liver (3) Type 2 diabetes mellitus Current visit: No Status: Chronic Diabetes mellitus type 2, insulin-dependent, hyperglycemia Continue sliding scale insulin, Levemir, glucose checks Qualifiers: Diabetes mellitus complication status: without complication Diabetes mellitus custodial insulin use: with custodial use Qualified Code(s): E11.9 - Type 2 diabetes mellitus without complications; Z79.4 - lobsterman (current) use of insulin; Z79.4 - retirement (current) use of insulin; Z79.4 - lobsterman ( current) use of insulin; Z79.4 - retirement (current) use of insulin (4) Ascites Current visit: No Status: Chronic Secondary to cirrhosis - continue home meds Interventional radiology consult for paracentesis Qualifiers: Ascites type: other type Qualified Code(s): R18.8 - Other ascites (5) Cellulitis Current visit: No Status: Chronic Recently treated for left lower leg cellulitis with chronic wound Qualifiers: Site of cellulitis: extremity Site of cellulitis of extremity: lower extremity Laterality: left Qualified Code(s): L03.116 - Cellulitis of left lower limb (6) Hypertension Current visit: No Status: Chronic Essential hypertension, controlled, monitor continue home dose of lisinopril/HCTZ, Aldactone, Lasix Qualifiers: Hypertension type: essential hypertension Qualified Code(s): I10 - Essential (primary) hypertension (7) DVT prophylaxis Current visit: Yes Status: Acute Continue heparin subcutaneous Internal Medicine - H&P: HPI Chief complaint: Fall Admitted From: Emergency Dept Plans for Post Hospital Care: Home History of present illness: Ms. Bautista is a 67 year old female with past medical history of hypertension, diabetes, GERD and cirrhosis. She presents as a transfer from [facility] for UTI and status post fall. Examined in the room. Patient is awake and alert. Not in any distress. Able to provide all history. No family members at bedside. Patient states she slid out of her chair earlier today. She was crawling on the floor for several hours until she can find a phone, to call for help. Patient states she did not pass out and was awake the whole time. She denies chest pain. She denies shortness of breath. Denies headache or blurred vision. Her only complaint is generalized weakness and fatigue. No obvious injuries. She denies palpitations or vomiting or diarrhea or fever. Patient was recently treated for cellulitis. States she has not been taking lactulose because it causes her to have diarrhea, and has not taken her Lasix or Aldactone today. Patient does have bilateral lower leg edema which patient states is chronic. No other acute complaints. Initial workup in the ED is significant for moderate left pleural effusion and UTI. Patient also has large volume ascites secondary to cirrhosis. She was transferred here for further management of her UTI and ascites. Guarded condition. CODE STATUS full code. Past Med Surg Social Fam HX - Past Medical History Medical history: cirrhosis, diabetes, GERD, hypertension Psychiatric history: anxiety, depression - Past Surgical History Surgical History: , cataract, cholecystectomy, hysterectomy, knee replacement - Social History Smoking Status: Never smoker Smokeless Tobacco Status: No Alcohol use: none Drug use: none - Family History Father Family Member Ethnicity: Non- Living Status: Hx Family Cardiac Disorders: Yes ([place]) Hx Family Cancer: Yes ([place]) Internal Medicine - H&P: Meds Insulin ASPART [Novolog Flexpen] 0 unit SQ TIDWM 07/03/16 [History] Insulin Glargine,Hum.rec.anlog [Lantus Solostar] 30 - 35 unit SQ HS 07/03/16 [ History] Lisinopril-HCTZ 10-12.5 [Prinzide 10-12.5] 1 each PO DAILY 07/03/16 [History] Omeprazole [PriLOSEC] 20 mg PO DAILY 07/03/16 [History] Venlafaxine XR (24 HR) [Effexor Xr] 150 mg PO DAILY 07/03/16 [History] Gabapentin [Neurontin] 300 mg PO HS 03/30/17 [History] Metformin HCl [Glucophage] 1,000 mg PO DAILY 03/30/17 [History] Ferrous Sulfate 325 mg PO BIDWM #60 tablet 04/01/17 [Rx] Furosemide [Lasix] 40 mg PO DAILY #30 tablet 04/01/17 [Rx] Spironolactone [Aldactone] 100 mg PO DAILY #60 tablet 04/01/17 [Rx] Lactulose 10 gm PO BID udc 07/20/17 [Rx] 3 Allergy/AdvReac Type Severity Reaction Status Date / Time acetaminophen [From Percocet] Allergy Nausea Verified 07/17/17 16:50 Oxycodone [From OxyContin] Allergy Hives Verified 07/17/17 16:50 All Systems PM: A 10-system review of systems was performed and is negative for pertinent findings except as documented above in the HPI. - Constitutional Constitutional: fatigue, weakness, no fever(s) - EENT Eyes: no blurry vision - Cardiovascular Cardiovascular ROS IM: edema, no chest pain, no claudication, no diaphoresis, no dyspnea, no dyspnea on exertion, no lightheadedness, no orthopnea, no palpitations, no syncope - Respiratory Respiratory: no cough, no dyspnea, no hemoptysis, no dyspnea on exertion, no wheezing, no chest congestion - Gastrointestinal Gastrointestinal: abdominal pain, bloating, no cramping, no diarrhea, no nausea , no vomiting - Genitourinary Genitourinary: no dysuria - Musculoskeletal Musculoskeletal ROS IM: no back pain - Neurological Neurological ROS: no abnormal gait, no confusion, no convulsions, no dizziness, no loss of vision, no numbness, no tingling - Constitutional Vitals: Temp Pulse Resp BP Pulse Ox 97.8 F 105 16 129/65 96 07/31/17 21:31 07/31/17 21:31 07/31/17 21:31 07/31/17 21:31 07/31/17 21:31 General appearance: Present: cooperative, A&O X 3, no acute distress, answers questions appropriately Exam: Generalized weakness chronically ill-appearing - Head Head exam: Present: atraumatic Additional comments: No obvious injuries - Eye Eye exam: Present: EOMI, scleral icterus (Bilateral) - ENT ENT exam: Present: mucous membranes dry - Respiratory Respiratory exam: Present: decreased breath sounds (Slightly decreased in both bases). Absent: accessory muscle use, chest wall tenderness, rales, rhonchi, wheezes, tachypnea - Cardiovascular Cardiovascular exam: Present: RRR, +S1, +S2, systolic murmur - GI/Abdominal GI/Abdominal exam: Present: distended (Patient has moderate ascites), soft, no peritoneal signs. Absent: firm, guarding, tenderness - Extremities Exam Extremities exam: Present: pedal edema (Bilateral leg 3+ pitting edema), radial pulses palpable and symmetrical. Absent: calf tenderness, cyanotic Additional comments: Patient does have a wound over the fifth toe on the left side - Neurological Exam Neurological exam: Present: alert, oriented X3, no focal deficits. Absent: facial droop, speech deficit
[2017-07-31] MEDS ORDERED: Furosemide 40 MG TABLET PO ONE (22:45)
[2017-07-31] MEDS: Insulin LISPRO 300 UNITS/3 ML VIAL SQ SCH (22:54)
[2017-07-31] MEDS: Lactulose Oral Soln 20 GM/30 ML UDC PO SCH (22:55)
[2017-08-01 00:53] LABS: Basophils % 0.5 %; Eosinophils % 0.3 %; Hemoglobin 11.2 g/dL (11.5-15.4); Immature Granulocytes % 0.3 % (0-4); Lymphocytes # 0.6 K/mcL (0.6-4.6); Lymphocytes % 6.9 %; Mean Corpuscular HGB Conc 32.9 g/dL (31.6-35.5); Mean Corpuscular Hemoglobin 28.5 pg (28.0-33.3); Mean Corpuscular Volume 86.5 fL (83.0-100.0); Monocytes % 11.8 %; Neutrophils # 7.1 K/mcL (1.6-8.9); Platelet Count 166 K/mcL (140-400); Red Blood Count 3.93 M/mcL (3.82-4.97); Red Cell Distribution Width 17.2 % (11.5-14.5); Segmented Neutrophils % 80.2 %
[2017-08-01 00:54] LABS: INR 1.5; Prothrombin Time 16.7 Seconds (9.4-12.1)
[2017-08-01 01:03] LABS: Calcium 8.7 mg/dL (8.6-10.8); Potassium 4.1 mEq/L (3.5-4.5)
[2017-08-01] MEDS ORDERED: *HR* LORazepam 2 MG/ML VIAL IVP ONE (02:40)
[2017-08-01] MEDS ORDERED: Ipratropium/Albuterol Neb 3 ML IH PRN (03:15)
[2017-08-01] MEDS: Insulin LISPRO 300 UNITS/3 ML VIAL SQ SCH ×4 (06:00→21:32)
[2017-08-01] MEDS ORDERED: Famotidine 20 MG/2 ML VIAL IVP SCH (06:00)
--- NOTE | 2017-08-01 09:00 | Internal Med Progress Note ---
Date of Encounter: 08/01/17 Time of Encounter: 08:58 - Assessment and plan (1) UTI (urinary tract infection) Current Visit: Yes Status: Acute Qualifiers: Urinary tract infection type: site unspecified Hematuria presence: without hematuria Qualified Code(s): N39.0 - Urinary tract infection, site not specified (2) Pleural effusion Current Visit: Yes Status: Acute (3) Cirrhosis Current Visit: Yes Status: Chronic Qualifiers: Hepatic cirrhosis type: unspecified hepatic cirrhosis Ascites presence: with ascites Qualified Code(s): K74.60 - Unspecified cirrhosis of liver (4) Type 2 diabetes mellitus Current Visit: Yes Status: Chronic Qualifiers: Diabetes mellitus complication status: without complication Diabetes mellitus parts counterman insulin use: with parts counterman use Qualified Code(s): E11.9 - Type 2 diabetes mellitus without complications; Z79.4 - salvage determiner (current) use of insulin; Z79.4 - salvage determiner (current) use of insulin; Z79.4 - correction ( current) use of insulin; Z79.4 - correction (current) use of insulin (5) Ascites Current Visit: Yes Status: Chronic Qualifiers: Ascites type: other type Qualified Code(s): R18.8 - Other ascites (6) Hypertension Current Visit: Yes Status: Chronic Qualifiers: Hypertension type: essential hypertension Qualified Code(s): I10 - Essential (primary) hypertension (7) Fall Current Visit: Yes Status: Acute Qualifiers: Encounter type: initial encounter Qualified Code(s): W19.XXXA - Unspecified fall, initial encounter - Subjective Interval history: Ms. Bautista is a 67 year old female with past medical history of hypertension, diabetes, GERD and cirrhosis. She presents as a transfer from [facility] ED for UTI and L pleural effusion and status post fall. Resume home medication and watch blood sugar daily as well as blood pressure. Awaiting urine culture report. 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 Her morphine and Ativan has been DC'd. On admission her ammonia level was only 53. Except that she is very somnolent neurological examination otherwise unremarkable. Awaiting for effect of medicine to go away. - Constitutional Vitals: Temp Pulse Resp BP Pulse Ox 98.5 F 107 20 147/76 93 08/01/17 03:08 08/01/17 03:08 08/01/17 03:50 08/01/17 03:08 08/01/17 03:50 General appearance: Present: disheveled, mild distress Exam: Patient was given Ativan this morning. Since then she is very somnolent although she can be awakened by calling her name and she does follow some simple commands. Very sleepy. Breathing easley she is a stable. Plantars are downward bilaterally. Withdrawing to painful stimulus all 4 extremities. - Head Head exam: Present: atraumatic, normocephalic - Eye Eye exam: Present: PERRL, conjuntiva pink, sclera anicteric Pupils: Present: PERRL - Neck Neck exam general surgery: Present: supple, trachea midline. Absent: lymphadenopathy - Respiratory Respiratory exam: Present: CTAB. Absent: accessory muscle use, rales, rhonchi, wheezes - Cardiovascular Cardiovascular exam: Present: RRR, +S1, +S2. Absent: diastolic murmur, gallop, rubs, systolic murmur - GI/Abdominal GI/Abdominal exam: Present: distended, normal bowel sounds, soft, no peritoneal signs. Absent: tenderness - Extremities Exam Extremities exam: Present: warm, radial pulses palpable and symmetrical. Absent : calf tenderness, cyanotic, pedal edema - Neurological Exam Neurological exam: Absent: pronater drift, facial droop, speech deficit Additional comments: atient was given Ativan this morning. Since then she is very somnolent although she can be awakened by calling her name and she does follow some simple commands. Very sleepy. Breathing easley she is a stable. Plantars are downward bilaterally. Withdrawing to painful stimulus all 4 extremities. - Skin Skin exam: Present: dry, intact Internal Medicine: Result - Labs CBC & Chem 7: 08/01/17 00:20 08/01/17 00:20 Labs: Short CBC 08/01/17 Range/Units 00:20 WBC 8.8 (4.3-11.1) K/mcL Hgb 11.2 L (11.5-15.4) g/dL Hct 34.0 L (35.3-44.9) % Plt Count 166 (140-400) K/mcL Neutrophils # 7.1 (1.6-8.9) K/mcL BMP 08/01/17 00:20 Sodium 132 L Potassium 4.1 Chloride 101 Carbon Dioxide 24 BUN 34 H Creatinine 1.20 H Glucose 258 H Calcium 8.7 Cardiac Enzymes 07/31/17 Range/Units 22:16 Troponin I 0.01 (0-0.03) ng/mL - ABG Interpretation ABG results: PT/INR, D-dimer PT 16.7 Seconds (9.4-12.1) H 08/01/17 00:20 Consult Discharge Plan - Plan Referrals: Latha Fink CNP [Primary Care Provider] - 08/16/17 12:00 pm
[2017-08-01] MEDS: Venlafaxine XR (24 HR) 150 MG CAP.ER.24H PO SCH (11:31)
[2017-08-01] MEDS: Lactulose Oral Soln 20 GM/30 ML UDC PO SCH ×2 (11:31→21:31)
[2017-08-01] MEDS: Furosemide 40 MG TABLET PO SCH (11:31)
[2017-08-01] MEDS: Ipratropium/Albuterol Neb 3 ML IH SCH ×3 (13:36→22:22)
--- NOTE | 2017-08-01 17:17 | Electrocardiograph Report ---
[address] [place] [address] Test Date: 2017-08-01 Pat Name: Nikky Bautista Department: 112 Room: 2A24 Gender: F Surveying Or Spatial Science Technician: DANA : 1950 Requested By: Kvng James Order Number: [id number] Reading MD: Medina Macedo Measurements Intervals [employer] Rate: 108 P: 44 ID: [id number] QRS: 36 QRSD: 84 T: 84 QT: 340 QTc: 403 Interpretive Statements SINUS TACHYCARDIA LOW QRS VOLTAGE POSSIBLE OLD SEPTAL [place] Electronically Signed On 08-01-2017 17:15:54 EDT by Medina Macedo
[2017-08-01] MEDS: *HR* Heparin 5,000 UNIT/ML VIAL SQ SCH (17:40)
[2017-08-01] MEDS: Gabapentin 300 MG CAPSULE PO SCH (21:31)
[2017-08-01] MEDS: Insulin DETEMIR 100 UNIT/ML X5UNITS SQ SCH (21:32)
[2017-08-02] MEDS ORDERED: Racepinephrine Neb 0.5 ML VIAL IH ONE ×2 (02:52→02:54)
[2017-08-02] MEDS: Ipratropium/Albuterol Neb 3 ML IH SCH ×4 (03:29→21:15)
[2017-08-02 04:32] LABS: Basophils # 0.1 K/mcL (0.0-0.2); Basophils % 0.9 %; Eosinophils # 0.1 K/mcL (0.0-0.6); Eosinophils % 1.2 %; Hematocrit 32.7 % (35.3-44.9); Immature Granulocytes % 0.4 % (0-4); Lymphocytes % 12.9 %; Mean Corpuscular HGB Conc 33.6 g/dL (31.6-35.5); Mean Corpuscular Hemoglobin 28.9 pg (28.0-33.3); Mean Corpuscular Volume 86.1 fL (83.0-100.0); Mean Platelet Volume 9.3 fL (9.4-12.4); Monocytes # 1.2 K/mcL (0.0-1.3); Monocytes % 15.6 %; Neutrophils # 5.3 K/mcL (1.6-8.9); Platelet Count 156 K/mcL (140-400); Red Cell Distribution Width 17.7 % (11.5-14.5)
[2017-08-02 04:53] LABS: Albumin 2.2 g/dL (3.5-5.0); Albumin/Globulin Ratio 0.6 (1.1-2.2); Calcium 8.8 mg/dL (8.6-10.8); Globulin 3.9 g/dL (2.4-3.5); Magnesium 1.6 mg/dL (1.6-2.6); Phosphorous 2.5 mg/dL (2.3-4.7); Potassium 3.9 mEq/L (3.5-4.5); Total Protein 6.1 g/dL (6.0-8.3)
[2017-08-02 05:11] LABS: Bilirubin,Total 2.5 mg/dL (0.2-1.2)
[2017-08-02] MEDS: Insulin LISPRO 300 UNITS/3 ML VIAL SQ SCH ×4 (08:18→21:37)
[2017-08-02] MEDS: *HR* Heparin 5,000 UNIT/ML VIAL SQ SCH ×2 (08:44→16:52)
[2017-08-02] MEDS: Venlafaxine XR (24 HR) 150 MG CAP.ER.24H PO SCH (09:33)
[2017-08-02] MEDS: Lactulose Oral Soln 20 GM/30 ML UDC PO SCH ×2 (09:33→21:36)
[2017-08-02] MEDS: Furosemide 40 MG TABLET PO SCH (09:33)
--- NOTE | 2017-08-02 09:42 | IR Procedure Note ---
Date of procedure: 08/02/17 Consent Obtained: Verbal consent, Written consent Timeout: Correct patient and procedure verified, Correct site verified, Time out performed, Skin prep completed Local anesthetic: Lidocaine 1% Indications: ascites Procedure Performed: paracentesis Site/Technique: RLQ Results/Findings: cloudy ascites Estimated blood loss (cc): 1 Complications: None; Tolerated procedure well Post Procedure Treatment Plan: fluid stuides pending
[2017-08-02 11:46] LABS: Amylase,Peritoneal Fluid 28 Units/L (No Ref Range); Glucose,Peritoneal Fluid 179 mg/dL (No Ref Range); LDH,Peritoneal Fluid 30 Units/L (No Ref Range)
[2017-08-02 11:47] LABS: Total Protein,Peritoneal Fluid 0.9 g/dL (No Ref Range)
[2017-08-02 12:02] LABS: Appearance of Peritoneal Fl CLOUDY (Clear)
[2017-08-02] MEDS: Albumin 25% 25gram/100mL 25 GM/100 ML IV.SOLN IVC SCH ×2 (12:16→14:59)
--- NOTE | 2017-08-02 15:30 | Internal Med Progress Note ---
Date of Encounter: 08/02/17 Time of Encounter: 15:28 - Assessment and plan (1) Ascites Current Visit: Yes Status: Chronic Assessment and plan: Secondary to cirrhosis of the liver pt reports of getting weekly paracentesis s/p paracentesis (08/02/17) with 8L ascites fluid removal will supplement albumin (6g/L for every liter above 5L of fluid removed) will f/u fluid analysis Qualifiers: Ascites type: other type Qualified Code(s): R18.8 - Other ascites (2) Pleural effusion Current Visit: Yes Status: Acute Assessment and plan: CXR findings reported worsening of left pleural effusion will d/c PO lasix and start Lasix 40mg IV BID O2 supplementation if respiratory status worsens, will consult IR for thoracentesis (3) Cirrhosis Current Visit: Yes Status: Chronic Qualifiers: Hepatic cirrhosis type: unspecified hepatic cirrhosis Ascites presence: with ascites Qualified Code(s): K74.60 - Unspecified cirrhosis of liver (4) Type 2 diabetes mellitus Current Visit: Yes Status: Chronic Assessment and plan: continue sliding scale insulin algorithm monitor FS and BG Qualifiers: Diabetes mellitus complication status: without complication Diabetes mellitus senior care insulin use: with senior care use Qualified Code(s): E11.9 - Type 2 diabetes mellitus without complications; Z79.4 - squaring machine operator (current) use of insulin; Z79.4 - group home (current) use of insulin; Z79.4 - squaring machine operator ( current) use of insulin; Z79.4 - squaring machine operator (current) use of insulin (5) GERD (gastroesophageal reflux disease) Current Visit: No Status: Chronic Qualifiers: Esophagitis presence: esophagitis presence not specified Qualified Code(s) : K21.9 - Gastro-esophageal reflux disease without esophagitis (6) Hypertension Current Visit: Yes Status: Chronic Assessment and plan: BP within acceptable range continue to closely monitor holding lisinopril/hctz given KANE Qualifiers: Hypertension type: essential hypertension Qualified Code(s): I10 - Essential (primary) hypertension (7) UTI (urinary tract infection) Current Visit: Yes Status: Acute Assessment and plan: continue empiric abx will treat for a total of seven days Qualifiers: Urinary tract infection type: site unspecified Hematuria presence: without hematuria Qualified Code(s): N39.0 - Urinary tract infection, site not specified (8) KANE (acute kidney injury) Current Visit: Yes Status: Acute Assessment and plan: holding Lisinopril/hctz continue Lasix given severe pleural effusion will closely monitor renal function (9) DVT prophylaxis Current Visit: Yes Status: Acute Assessment and plan: Heparin SQ - Subjective Interval history: Patient seen and examined at bedside. Resting in bed and underwent paracentesis today with removal of 8L of ascites fluid. Reports of significant improvement in her respiratory status after paracentesis. No overnight events reported. - Constitutional Vitals: Temp Pulse Resp BP Pulse Ox 97.5 F L 100 17 113/71 97 08/02/17 11:47 08/02/17 11:47 08/02/17 11:47 08/02/17 11:47 08/02/17 11:47 General appearance: Present: disheveled, A&O X 3, no acute distress - Head Head exam: Present: atraumatic, normocephalic - Eye Eye exam: Present: conjuntiva pink, sclera anicteric - Respiratory Respiratory exam: Absent: respiratory distress, wheezes - Cardiovascular Cardiovascular exam: Present: RRR, +S1, +S2. Absent: diastolic murmur, gallop, rubs, systolic murmur - GI/Abdominal GI/Abdominal exam: Present: distended (ascites ), normal bowel sounds, soft. Absent: tenderness - Extremities Exam Extremities exam: Present: pedal edema (3+pitting edema ), warm, radial pulses palpable and symmetrical. Absent: calf tenderness - Neurological Exam Neurological exam: Present: alert, oriented X3 - Psychiatric Psychiatric exam: Present: normal affect, normal mood Internal Medicine: Result - Labs CBC & Chem 7: 08/02/17 03:51 08/02/17 03:51 Labs: Short CBC 08/02/17 Range/Units 03:51 WBC 7.7 (4.3-11.1) K/mcL Hgb 11.0 L (11.5-15.4) g/dL Hct 32.7 L (35.3-44.9) % Plt Count 156 (140-400) K/mcL Neutrophils # 5.3 (1.6-8.9) K/mcL BMP 08/02/17 03:51 Sodium 133 L Potassium 3.9 Chloride 102 Carbon Dioxide 22 BUN 34 H Creatinine 1.26 H Glucose 152 H Calcium 8.8 Liver Function 08/02/17 Range/Units 03:51 Total Bilirubin 2.5 H (0.2-1.2) mg/dL AST 48 H (5-34) Units/L ALT 32 (0-55) Units/L Alkaline Phosphatase 180 H (38-126) Units/L Albumin 2.2 L (3.5-5.0) g/dL - ABG Interpretation ABG results: PT/INR, D-dimer PT 16.7 Seconds (9.4-12.1) H 08/01/17 00:20 - Impressions Impressions Chest X-Ray 08/02/17 08:00 IMPRESSION: Congestive heart failure with large left effusion, increased compared to prior D/ / Marvel Jordan MD / Marvel Jordan MD Interpreting Provider: Marvel Jordan MD Consult Discharge Plan - Plan Referrals: Latha Fink CNP [Primary Care Provider] - 08/16/17 12:00 pm
[2017-08-02] MEDS ORDERED: Furosemide 40 MG/4 ML VIAL IVP SCH (17:00)
[2017-08-02] MEDS: Gabapentin 300 MG CAPSULE PO SCH (21:37)
[2017-08-02] MEDS: Insulin DETEMIR 100 UNIT/ML X5UNITS SQ SCH (21:37)
[2017-08-02] MEDS ORDERED: Furosemide 40 MG/4 ML VIAL IVP ONE (21:47)
[2017-08-03] MEDS: Ipratropium/Albuterol Neb 3 ML IH SCH ×4 (03:46→21:04)
[2017-08-03] MEDS: *HR* Heparin 5,000 UNIT/ML VIAL SQ SCH ×2 (05:31→16:50)
[2017-08-03 05:51] LABS: Basophils % 0.6 %; Eosinophils # 0.1 K/mcL (0.0-0.6); Eosinophils % 1.8 %; Hematocrit 30.5 % (35.3-44.9); Hemoglobin 10.4 g/dL (11.5-15.4); Immature Granulocytes % 0.4 % (0-4); Lymphocytes # 0.8 K/mcL (0.6-4.6); Lymphocytes % 10.5 %; Mean Corpuscular HGB Conc 34.1 g/dL (31.6-35.5); Mean Corpuscular Hemoglobin 29.4 pg (28.0-33.3); Mean Corpuscular Volume 86.2 fL (83.0-100.0); Mean Platelet Volume 9.1 fL (9.4-12.4); Monocytes # 1.2 K/mcL (0.0-1.3); Monocytes % 16.7 %; Platelet Count 123 K/mcL (140-400); Red Blood Count 3.54 M/mcL (3.82-4.97); Red Cell Distribution Width 17.4 % (11.5-14.5)
[2017-08-03 06:04] LABS: Albumin 2.3 g/dL (3.5-5.0); Albumin/Globulin Ratio 0.7 (1.1-2.2); Bilirubin,Total 2.3 mg/dL (0.2-1.2); Calcium 8.5 mg/dL (8.6-10.8); Globulin 3.1 g/dL (2.4-3.5); Magnesium 1.6 mg/dL (1.6-2.6); Phosphorous 2.1 mg/dL (2.3-4.7); Total Protein 5.4 g/dL (6.0-8.3)
[2017-08-03] MEDS ORDERED: Furosemide 40 MG/4 ML VIAL IVP SCH (07:59)
[2017-08-03] MEDS: Insulin LISPRO 300 UNITS/3 ML VIAL SQ SCH ×4 (08:25→20:45)
[2017-08-03] MEDS: Venlafaxine XR (24 HR) 150 MG CAP.ER.24H PO SCH (08:28)
[2017-08-03] MEDS: Lactulose Oral Soln 20 GM/30 ML UDC PO SCH ×2 (08:29→20:45)
--- NOTE | 2017-08-03 14:17 | Internal Med Progress Note ---
Date of Encounter: 08/03/17 Time of Encounter: 13:41 - Assessment and plan (1) Ascites Current Visit: Yes Status: Chronic Assessment and plan: Secondary to cirrhosis of the liver pt reports of getting weekly paracentesis s/p paracentesis (08/02/17) with 8L ascites fluid removal s/p albumin supplementation peritoneal fluid analysis consistent with SBP will start Cefotaxime 2gm IV q8h Qualifiers: Ascites type: other type Qualified Code(s): R18.8 - Other ascites (2) Pleural effusion Current Visit: Yes Status: Acute Assessment and plan: CXR findings reported worsening of left pleural effusion pt unable to receive Lasix 40mg IV due to labile BP, decreased to Lasix 20mg IV BID, currently tolerating it well. Saturating appropriately on nasal cannula O2 supplementation if respiratory status worsens, will consult IR for thoracentesis (3) Cirrhosis Current Visit: Yes Status: Chronic Qualifiers: Hepatic cirrhosis type: unspecified hepatic cirrhosis Ascites presence: with ascites Qualified Code(s): K74.60 - Unspecified cirrhosis of liver (4) Type 2 diabetes mellitus Current Visit: Yes Status: Chronic Assessment and plan: continue sliding scale insulin algorithm monitor FS and BG Qualifiers: Diabetes mellitus complication status: without complication Diabetes mellitus usp insulin use: with usp use Qualified Code(s): E11.9 - Type 2 diabetes mellitus without complications; Z79.4 - senior care (current) use of insulin; Z79.4 - boring machine set up operator jig (current) use of insulin; Z79.4 - senior care ( current) use of insulin; Z79.4 - boring machine set up operator jig (current) use of insulin (5) GERD (gastroesophageal reflux disease) Current Visit: No Status: Chronic Qualifiers: Esophagitis presence: esophagitis presence not specified Qualified Code(s) : K21.9 - Gastro-esophageal reflux disease without esophagitis (6) Hypertension Current Visit: Yes Status: Chronic Assessment and plan: BP within acceptable range continue to closely monitor holding lisinopril/hctz given KANE Qualifiers: Hypertension type: essential hypertension Qualified Code(s): I10 - Essential (primary) hypertension (7) UTI (urinary tract infection) Current Visit: Yes Status: Acute Assessment and plan: continue empiric abx will treat for a total of seven days Qualifiers: Urinary tract infection type: site unspecified Hematuria presence: without hematuria Qualified Code(s): N39.0 - Urinary tract infection, site not specified (8) KANE (acute kidney injury) Current Visit: Yes Status: Acute Assessment and plan: holding Lisinopril/hctz continue Lasix given severe pleural effusion will closely monitor renal function (9) DVT prophylaxis Current Visit: Yes Status: Acute Assessment and plan: Heparin SQ - Subjective Interval history: Patient seen and examined at bedside. Resting in bed. Peritoneal fluid analysis consistent with SBP. Will d/c ceftriaxone and start Cefotaxime. No overnight issues reported PT evaluation noted, recommending ECF. patient in agreement for d/c to ECF clinical social work therapist consultation requested for placement - Constitutional Vitals: Temp Pulse Resp BP Pulse Ox 98.0 F 96 17 124/70 96 08/03/17 10:32 08/03/17 10:32 08/03/17 10:32 08/03/17 10:32 08/03/17 10:32 General appearance: Present: disheveled, A&O X 3, no acute distress - Head Head exam: Present: atraumatic, normocephalic - Eye Eye exam: Present: conjuntiva pink, sclera anicteric - Respiratory Respiratory exam: Present: decreased breath sounds. Absent: respiratory distress, wheezes - Cardiovascular Cardiovascular exam: Present: RRR, +S1, +S2. Absent: diastolic murmur, gallop, rubs, systolic murmur - GI/Abdominal GI/Abdominal exam: Present: distended (ascites), normal bowel sounds, soft. Absent: tenderness - Extremities Exam Extremities exam: Present: pedal edema, warm, radial pulses palpable and symmetrical. Absent: calf tenderness - Neurological Exam Neurological exam: Present: alert, oriented X3 - Psychiatric Psychiatric exam: Present: normal affect, normal mood Internal Medicine: Result - Labs CBC & Chem 7: 08/03/17 04:58 08/03/17 04:58 Labs: Short CBC 08/03/17 Range/Units 04:58 WBC 7.1 (4.3-11.1) K/mcL Hgb 10.4 L (11.5-15.4) g/dL Hct 30.5 L (35.3-44.9) % Plt Count 123 L (140-400) K/mcL Neutrophils # 5.0 (1.6-8.9) K/mcL BMP 08/03/17 04:58 Sodium 133 L Potassium 4.0 Chloride 103 Carbon Dioxide 24 BUN 33 H Creatinine 1.25 H Glucose 151 H Calcium 8.5 L Liver Function 08/03/17 Range/Units 04:58 Total Bilirubin 2.3 H (0.2-1.2) mg/dL AST 34 (5-34) Units/L ALT 25 (0-55) Units/L Alkaline Phosphatase 144 H (38-126) Units/L Albumin 2.3 L (3.5-5.0) g/dL - ABG Interpretation ABG results: PT/INR, D-dimer PT 16.7 Seconds (9.4-12.1) H 08/01/17 00:20 - Impressions Impressions Paracentesis Ultrasound 08/02/17 00:00 IMPRESSION: Successful ultrasound guided paracentesis. D/ / Nico Artis MD / Nico Artis MD Interpreting Provider: Nico Artis MD - VTE Documentation of Mechanical Device: Intermittent pneumatic compression device Consult Discharge Plan - Plan Referrals: Latha Fink, FREEZER OPERATOR [Primary Care Provider] - 08/16/17 12:00 pm
[2017-08-03] MEDS: Cefotaxime 2,000 MG in D5% in Water 100 ML IVPB SCH ×2 (15:11→21:46)
[2017-08-03] MEDS ORDERED: Furosemide 40 MG/4 ML VIAL IVP ONE (16:28)
[2017-08-03] MEDS: Furosemide 40 MG/4 ML VIAL IVP SCH (16:30)
[2017-08-03] MEDS: Gabapentin 300 MG CAPSULE PO SCH (20:45)
[2017-08-03] MEDS: Insulin DETEMIR 100 UNIT/ML X5UNITS SQ SCH (20:48)
[2017-08-04] MEDS: Ipratropium/Albuterol Neb 3 ML IH SCH ×4 (03:33→22:06)
[2017-08-04 04:52] LABS: Eosinophils % 1.7 %; Hematocrit 30.9 % (35.3-44.9); Hemoglobin 10.3 g/dL (11.5-15.4); Immature Granulocytes % 0.3 % (0-4); Lymphocytes % 10.4 %; Mean Corpuscular HGB Conc 33.3 g/dL (31.6-35.5); Mean Corpuscular Hemoglobin 28.9 pg (28.0-33.3); Mean Corpuscular Volume 86.6 fL (83.0-100.0); Mean Platelet Volume 9.7 fL (9.4-12.4); Monocytes % 16.9 %; Platelet Count 108 K/mcL (140-400); Red Blood Count 3.57 M/mcL (3.82-4.97); Red Cell Distribution Width 17.5 % (11.5-14.5)
[2017-08-04 04:53] LABS: Basophils # 0.1 K/mcL (0.0-0.2); Basophils % 0.7 %; Eosinophils # 0.1 K/mcL (0.0-0.6); Lymphocytes # 0.7 K/mcL (0.6-4.6); Monocytes # 1.2 K/mcL (0.0-1.3); Neutrophils # 4.9 K/mcL (1.6-8.9)
[2017-08-04 05:12] LABS: Albumin 2.2 g/dL (3.5-5.0); Albumin/Globulin Ratio 0.7 (1.1-2.2); Bilirubin,Total 2.2 mg/dL (0.2-1.2); Calcium 8.3 mg/dL (8.6-10.8); Magnesium 1.6 mg/dL (1.6-2.6); Phosphorous 2.1 mg/dL (2.3-4.7); Potassium 3.9 mEq/L (3.5-4.5); Total Protein 5.2 g/dL (6.0-8.3)
[2017-08-04] MEDS: Cefotaxime 2,000 MG in D5% in Water 100 ML IVPB SCH ×3 (05:40→21:28)
[2017-08-04] MEDS: *HR* Heparin 5,000 UNIT/ML VIAL SQ SCH ×2 (05:44→16:27)
[2017-08-04] MEDS ORDERED: Sodium Phosphate 30 MMOL in D5% in Water 100 ML IVPB ONE (07:56)
[2017-08-04] MEDS: Insulin LISPRO 300 UNITS/3 ML VIAL SQ SCH ×4 (08:37→21:25)
[2017-08-04] MEDS: Lactulose Oral Soln 20 GM/30 ML UDC PO SCH ×2 (08:38→21:28)
[2017-08-04] MEDS: Linezolid 600 MG TABLET PO SCH ×2 (08:38→21:28)
[2017-08-04] MEDS: Furosemide 40 MG/4 ML VIAL IVP SCH ×2 (08:57→16:18)
[2017-08-04] MEDS ORDERED: 0.9 % Sodium Chloride 1,000 ML ONE (09:04)
--- NOTE | 2017-08-04 11:31 | Palliative - Consult Note ---
Date of Encounter: 08/04/17 Time of Encounter: 11:25 - Assessment and Plan (1) Malnutrition Current Visit: Yes Status: Acute Assessment and plan: Albumin 2.2. Cachexic. She has fairly good appetite and has been eating most of meals here. She does have home delivered meals. Monitor Qualifiers: Malnutrition type: unspecified type Qualified Code(s): E46 - Unspecified protein-calorie malnutrition (2) Counseling regarding advanced care planning and goals of care Current Visit: Yes Status: Acute Assessment and plan: Patient has no family that are involved, or that she wants involved with her care. Her 2 children are estranged. She has a couple of friends that check in on her. She gave me permission to call 2 friends (Marisol Carranza [phone]/ [phone] and Lisa Kruger [phone]) regarding potential for medical POA. I spoke with Marisol, who is asking me to call Lisa and check with her first. I have left message for Lisa to return my call. Marisol states pt needs to go to assisted living or ECF, however, refuses to r/t animals at home. States that pt actually fell over her large dogs and has had 2 fractures (femur and hip) related to this. Patient has refused up to this point to consider. Patient had just began passport services, but ended up in hospital prior to them seeing her on Tuesday. She had also been enrolled in [facility]. Discussed code status, and patient does not want any resuscitative measures at all, and desires DNR-Comfort Care. Code status changed to reflect patient wishes. D/ W Social work who will continue to discuss with pt, but at this time, she is refusing any placement and wants to return home with passport and hospice. They may have to evaluate her home situation at home and get APS involved if necessary. (3) UTI (urinary tract infection) Current Visit: Yes Status: Acute Assessment and plan: Continues with management via primary team with antibiotics. Qualifiers: Urinary tract infection type: site unspecified Hematuria presence: without hematuria Qualified Code(s): N39.0 - Urinary tract infection, site not specified (4) Cirrhosis Current Visit: Yes Status: Chronic Qualifiers: Hepatic cirrhosis type: unspecified hepatic cirrhosis Ascites presence: with ascites Qualified Code(s): K74.60 - Unspecified cirrhosis of liver Palliative-CN HPI - Data of Consult Consult date: 08/04/17 Requesting Physician: Marissa Bloom MD Primary Care Provider: Latha Fink CNP - Consult Narrative History of present illness: Ms. Bautista is a 67 year old female with a history of cirrhosis, who was admitted after a fall. Reported she was down crawling for unknown period of time. She was admitted and currently being treated for UTI. She had paracentesis Tuesday with over 8L drained. MELD score currently 19. Albumin 2.2. INR 1.5. + for VRE per urine culture. Patient does not have any family involved with her care. States her 2 children are estranged, and her mother is 92 and in nursing facility. States she had just been signed up for [facility] as well as [facility]. States that she was diagnosed fairly recently with cirrhosis, but states she probably has had it for awhile. She did not desire agressive treatment for her disease. She is currently alert and oriented, she is quite slow to respond to questioning. Denies pain, and states she feels better since fluid has been drained from abdomen. CC: Marissa Bloom MD Past Med Surg Social Fam HX - Past Medical History Medical history: cirrhosis, diabetes, GERD, hypertension Psychiatric history: anxiety, depression - Past Surgical History Surgical History: , cataract, cholecystectomy, hysterectomy, knee replacement - Social History Smoking Status: Never smoker Smokeless Tobacco Status: No Alcohol use: none Drug use: none - Family History Father Family Member Ethnicity: Non- Living Status: Hx Family Cardiac Disorders: Yes ([place]) Hx Family Cancer: Yes ([place]) Medications and Allergies Insulin ASPART [Novolog Flexpen] 0 unit SQ TIDWM 07/03/16 [History] Insulin Glargine,Hum.rec.anlog [Lantus Solostar] 30 - 35 unit SQ HS 07/03/16 [ History] Lisinopril-HCTZ 10-12.5 [Prinzide 10-12.5] 1 each PO DAILY 07/03/16 [History] Omeprazole [PriLOSEC] 20 mg PO DAILY 07/03/16 [History] Venlafaxine XR (24 HR) [Effexor Xr] 150 mg PO DAILY 07/03/16 [History] Metformin HCl [Glucophage] 1,000 mg PO BID 03/30/17 [History] Ferrous Sulfate 325 mg PO BIDWM #60 tablet 04/01/17 [Rx] Furosemide [Lasix] 40 mg PO DAILY #30 tablet 04/01/17 [Rx] Spironolactone [Aldactone] 100 mg PO DAILY #60 tablet 04/01/17 [Rx] Lactulose 10 gm PO BID udc 07/20/17 [Rx] 3 Allergy/AdvReac Type Severity Reaction Status Date / Time Oxycodone [From OxyContin] Allergy Hives Verified 08/01/17 14:13 acetaminophen [From Percocet] AdvReac Nausea Verified 08/01/17 14:13 All systems: reviewed and no additional remarkable complaints except as stated ( shortness of breath, poor appetite, abd distention, generalized weakness) Palliative Care-Exam - Constitutional Vitals: Temp Pulse Resp BP Pulse Ox 97.7 F 90 18 122/86 97 08/04/17 10:45 08/04/17 10:45 08/04/17 10:45 08/04/17 10:45 08/04/17 10:45 General appearance: Present: no acute distress - Head Head Exam: Present: normal inspection, normocephalic - Eye Eye exam: Present: normal appearance, PERRL - Respiratory Respiratory exam: Present: decreased breath sounds, CTAB - Cardiovascular Cardiovascular exam: Present: +S1, +S2 - GI/Abdominal Exam GI/Abdominal exam: Present: distended, soft - Neurological Exam Neurological exam: Present: alert, oriented X3, strengths equal and symetr throughout - Skin Skin exam: Present: dry, pallor, warm Internal Medicine - CN: Reslt - Labs CBC & Chem 7: 08/04/17 04:08 08/04/17 04:08 Labs: Short CBC 08/04/17 Range/Units 04:08 WBC 7.1 (4.3-11.1) K/mcL Hgb 10.3 L (11.5-15.4) g/dL Hct 30.9 L (35.3-44.9) % Plt Count 108 L (140-400) K/mcL Neutrophils # 4.9 (1.6-8.9) K/mcL BMP 08/04/17 04:08 Sodium 132 L Potassium 3.9 Chloride 104 Carbon Dioxide 24 BUN 33 H Creatinine 1.13 H Glucose 95 Calcium 8.3 L Liver Function 08/04/17 Range/Units 04:08 Total Bilirubin 2.2 H (0.2-1.2) mg/dL AST 34 (5-34) Units/L ALT 24 (0-55) Units/L Alkaline Phosphatase 144 H (38-126) Units/L Albumin 2.2 L (3.5-5.0) g/dL - ABG Interpretation ABG results: PT/INR, D-dimer PT 16.7 Seconds (9.4-12.1) H 08/01/17 00:20 - Impressions Impressions Chest X-Ray 08/04/17 07:57 IMPRESSION: 1. Stable moderate left pleural effusion with associated atelectasis in the left lung base. 2. Mild pulmonary vascular congestion, not appreciably changed. D/ / 08/04/2017 09:11:10 Jordan Barnett MD / [email or web address] Interpreting Provider: Jordan Barnett MD Consult Discharge Plan - Plan Referrals: Latha Fink, CHART PICKER [Primary Care Provider] - 08/16/17 12:00 pm Palliative Quality Palliative Quality: Screen for Code Status: Yes, Screen for Goals of Care: Yes, Screen for Pain: Yes, If Pain Regimen Started, Initiate Bowel Regimen: NA, Screen for Nausea/Vomitting: Yes Code Status: 07/31/17 21:40 Resuscitation Status: Active [RES] Routine Comment: Resuscitation Status: Full Code 08/04/17 11:13 DNR [Resuscitation Status: Active] [RES] Routine Comment: Resuscitation Status: DNR-Comfort Care
--- NOTE | 2017-08-04 12:16 | Internal Med Progress Note ---
Date of Encounter: 08/04/17 Time of Encounter: 12:16 - Assessment and plan (1) Ascites Current Visit: Yes Status: Chronic Assessment and plan: Secondary to cirrhosis of the liver pt reports of getting weekly paracentesis s/p paracentesis (08/02/17) with 8L ascites fluid removal s/p albumin supplementation peritoneal fluid analysis consistent with SBP Continue Cefotaxime 2gm IV q8h Qualifiers: Ascites type: other type Qualified Code(s): R18.8 - Other ascites (2) SBP (spontaneous bacterial peritonitis) Current Visit: Yes Status: Acute Assessment and plan: as listed above (3) Pleural effusion Current Visit: Yes Status: Acute Assessment and plan: CXR findings reported worsening of left pleural effusion Tolerating Lasix CXR shows improvement, will continue IV diuresis Saturating appropriately on nasal cannula O2 supplementation (4) Cirrhosis Current Visit: Yes Status: Chronic Qualifiers: Hepatic cirrhosis type: unspecified hepatic cirrhosis Ascites presence: with ascites Qualified Code(s): K74.60 - Unspecified cirrhosis of liver (5) Type 2 diabetes mellitus Current Visit: Yes Status: Chronic Assessment and plan: continue sliding scale insulin algorithm monitor FS and BG Qualifiers: Diabetes mellitus complication status: without complication Diabetes mellitus senior living insulin use: with senior living use Qualified Code(s): E11.9 - Type 2 diabetes mellitus without complications; Z79.4 - joint terminal attack controller (current) use of insulin; Z79.4 - long-term (current) use of insulin; Z79.4 - joint terminal attack controller ( current) use of insulin; Z79.4 - long-term (current) use of insulin (6) GERD (gastroesophageal reflux disease) Current Visit: No Status: Chronic Qualifiers: Esophagitis presence: esophagitis presence not specified Qualified Code(s) : K21.9 - Gastro-esophageal reflux disease without esophagitis (7) Hypertension Current Visit: Yes Status: Chronic Assessment and plan: BP within acceptable range continue to closely monitor holding lisinopril/hctz given KANE Qualifiers: Hypertension type: essential hypertension Qualified Code(s): I10 - Essential (primary) hypertension (8) UTI (urinary tract infection) Current Visit: Yes Status: Acute Assessment and plan: Urine cultures positive for VRE started Linezolid as per culture sensitivities, will closely monitor PLT count Qualifiers: Urinary tract infection type: site unspecified Hematuria presence: without hematuria Qualified Code(s): N39.0 - Urinary tract infection, site not specified (9) KANE (acute kidney injury) Current Visit: Yes Status: Acute Assessment and plan: holding Lisinopril/hctz continue Lasix given severe pleural effusion will closely monitor renal function (10) DVT prophylaxis Current Visit: Yes Status: Acute Assessment and plan: Heparin SQ - Subjective Interval history: Patient seen and examined at bedside. Resting in bed. urine cultures positive for VRE, sensitive to Linezolid. Palliative care consulted to establish goals of care and advance directives. Pt has no family, lives alone, and her recommended friends are hesitant to be her POA. Pt is refusing ECF but in agreement to home health. She also changed her code status to DNR-CC (no pressor support, central line in addition to DNR/DNI) - Constitutional Vitals: Temp Pulse Resp BP Pulse Ox 97.7 F 90 18 122/86 97 08/04/17 10:45 08/04/17 10:45 08/04/17 10:45 08/04/17 10:45 08/04/17 10:45 General appearance: Present: disheveled, A&O X 3, no acute distress - Head Head exam: Present: atraumatic, normocephalic - Eye Eye exam: Present: conjuntiva pink, sclera anicteric - Respiratory Respiratory exam: Present: decreased breath sounds. Absent: respiratory distress, wheezes - Cardiovascular Cardiovascular exam: Present: RRR, +S1, +S2. Absent: diastolic murmur, gallop, rubs, systolic murmur - GI/Abdominal GI/Abdominal exam: Present: distended (ascites), normal bowel sounds, soft, no peritoneal signs. Absent: tenderness - Extremities Exam Extremities exam: Present: pedal edema, warm, radial pulses palpable and symmetrical. Absent: calf tenderness - Neurological Exam Neurological exam: Present: alert, oriented X3 - Psychiatric Psychiatric exam: Present: normal affect, normal mood Internal Medicine: Result - Labs CBC & Chem 7: 08/04/17 04:08 08/04/17 04:08 Labs: Short CBC 08/04/17 Range/Units 04:08 WBC 7.1 (4.3-11.1) K/mcL Hgb 10.3 L (11.5-15.4) g/dL Hct 30.9 L (35.3-44.9) % Plt Count 108 L (140-400) K/mcL Neutrophils # 4.9 (1.6-8.9) K/mcL BMP 08/04/17 04:08 Sodium 132 L Potassium 3.9 Chloride 104 Carbon Dioxide 24 BUN 33 H Creatinine 1.13 H Glucose 95 Calcium 8.3 L Liver Function 08/04/17 Range/Units 04:08 Total Bilirubin 2.2 H (0.2-1.2) mg/dL AST 34 (5-34) Units/L ALT 24 (0-55) Units/L Alkaline Phosphatase 144 H (38-126) Units/L Albumin 2.2 L (3.5-5.0) g/dL - ABG Interpretation ABG results: PT/INR, D-dimer PT 16.7 Seconds (9.4-12.1) H 08/01/17 00:20 - Impressions Impressions Chest X-Ray 08/04/17 07:57 IMPRESSION: 1. Stable moderate left pleural effusion with associated atelectasis in the left lung base. 2. Mild pulmonary vascular congestion, not appreciably changed. D/ / 08/04/2017 09:11:10 Jordan Barnett MD / [email or web address] Interpreting Provider: Jordan Barnett MD - VTE Documentation of Mechanical Device: Intermittent pneumatic compression device Consult Discharge Plan - Plan Referrals: Latha Fink, EDELMIRA [Primary Care Provider] - 08/16/17 12:00 pm
[2017-08-04] MEDS ORDERED: Furosemide 40 MG/4 ML VIAL IVP ONE (16:16)
[2017-08-04] MEDS: Gabapentin 300 MG CAPSULE PO SCH (21:28)
[2017-08-04] MEDS: Insulin DETEMIR 100 UNIT/ML X5UNITS SQ SCH (21:34)
[2017-08-05] MEDS: Ipratropium/Albuterol Neb 3 ML IH SCH ×4 (04:21→22:52)
[2017-08-05] MEDS: Cefotaxime 2,000 MG in D5% in Water 100 ML IVPB SCH ×3 (05:15→22:24)
[2017-08-05] MEDS: *HR* Heparin 5,000 UNIT/ML VIAL SQ SCH ×2 (05:19→16:56)
[2017-08-05 05:46] LABS: Basophils # 0.1 K/mcL (0.0-0.2); Basophils % 0.8 %; Eosinophils # 0.2 K/mcL (0.0-0.6); Eosinophils % 2.1 %; Hemoglobin 10.7 g/dL (11.5-15.4); Immature Granulocytes % 0.4 % (0-4); Lymphocytes # 0.8 K/mcL (0.6-4.6); Mean Corpuscular HGB Conc 33.4 g/dL (31.6-35.5); Mean Corpuscular Hemoglobin 28.8 pg (28.0-33.3); Mean Corpuscular Volume 86.3 fL (83.0-100.0); Mean Platelet Volume 9.1 fL (9.4-12.4); Monocytes # 1.2 K/mcL (0.0-1.3); Monocytes % 17.3 %; Neutrophils # 4.9 K/mcL (1.6-8.9); Platelet Count 133 K/mcL (140-400); Red Blood Count 3.71 M/mcL (3.82-4.97); Red Cell Distribution Width 17.6 % (11.5-14.5); Segmented Neutrophils % 68.4 %
[2017-08-05 06:07] LABS: Magnesium 1.6 mg/dL (1.6-2.6); Phosphorous 2.6 mg/dL (2.3-4.7)
[2017-08-05 06:11] LABS: Albumin 2.1 g/dL (3.5-5.0); Albumin/Globulin Ratio 0.6 (1.1-2.2); Bilirubin,Total 2.1 mg/dL (0.2-1.2); Calcium 8.1 mg/dL (8.6-10.8); Globulin 3.3 g/dL (2.4-3.5); Potassium 3.8 mEq/L (3.5-4.5); Total Protein 5.4 g/dL (6.0-8.3)
[2017-08-05] MEDS: Insulin LISPRO 300 UNITS/3 ML VIAL SQ SCH ×4 (07:40→22:15)
[2017-08-05] MEDS: Furosemide 40 MG/4 ML VIAL IVP SCH ×2 (10:36→16:56)
[2017-08-05] MEDS: Lactulose Oral Soln 20 GM/30 ML UDC PO SCH ×3 (10:37→22:18)
[2017-08-05] MEDS: Linezolid 600 MG TABLET PO SCH (10:38)
[2017-08-05] MEDS: Nitrofurantoin (BID) 100 MG CAPSULE PO SCH ×2 (12:20→16:56)
--- NOTE | 2017-08-05 13:57 | Palliative Progress Note ---
Date of Encounter: 08/05/17 Time of Encounter: 13:50 - Assessment and plan (1) Malnutrition Current Visit: Yes Status: Acute Qualifiers: Malnutrition type: unspecified type Qualified Code(s): E46 - Unspecified protein-calorie malnutrition (2) Counseling regarding advanced care planning and goals of care Current Visit: Yes Status: Acute Assessment and plan: Attempted to revisit discharge situation with pt, she stopped conversing with me. Keeps stating [facility] will be there. Informed her once again, that they will not be there around the clock, and probably max hours would be 8 a day. Thus far, she has refused ECF placement. Palliative will f/u Tuesday. (3) UTI (urinary tract infection) Current Visit: Yes Status: Acute Assessment and plan: Continue treatment for VRE urine. Qualifiers: Urinary tract infection type: site unspecified Hematuria presence: without hematuria Qualified Code(s): N39.0 - Urinary tract infection, site not specified (4) Cirrhosis Current Visit: Yes Status: Chronic Qualifiers: Hepatic cirrhosis type: unspecified hepatic cirrhosis Ascites presence: with ascites Qualified Code(s): K74.60 - Unspecified cirrhosis of liver - Time Spent With Patient Total time spent is greater than 50% in coordination of care (as documented) at patient's floor/unit and/or counseling patient: - Subjective Interval history: Patient sleeping on my arrival, awakens easily. Assisted up to BSC x 2 assist. Patient very weak. Denies pain, refusing to answer some questions. Flat affect. - Constitutional Vitals: Abnormal lab results RBC 3.71 M/mcL (3.82-4.97) L 08/05/17 05:35 Hgb 10.7 g/dL (11.5-15.4) L 08/05/17 05:35 Hct 32.0 % (35.3-44.9) L 08/05/17 05:35 RDW 17.6 % (11.5-14.5) H 08/05/17 05:35 Plt Count 133 K/mcL (140-400) L 08/05/17 05:35 MPV 9.1 fL (9.4-12.4) L 08/05/17 05:35 PT 16.7 Seconds (9.4-12.1) H 08/01/17 00:20 Sodium 132 mEq/L (136-145) L 08/05/17 05:35 BUN 34 mg/dL (7-20) H 08/05/17 05:35 Creatinine 1.18 mg/dL (0.57-1.11) H 08/05/17 05:35 Est GFR ( Amer) 56 (> 60) L 08/05/17 05:35 Est GFR (Non-Af Amer) 46 (> 60) L 08/05/17 05:35 BUN/Creatinine Ratio 29 (6-26) H 08/05/17 05:35 Glucose 115 mg/dL (70-99) H 08/05/17 05:35 POC Glucose 165 (58-89) H 08/04/17 20:02 Calcium 8.1 mg/dL (8.6-10.8) L 08/05/17 05:35 Total Bilirubin 2.1 mg/dL (0.2-1.2) H 08/05/17 05:35 Alkaline Phosphatase 158 Units/L (38-126) H 08/05/17 05:35 Serum Total Protein 5.4 g/dL (6.0-8.3) L 08/05/17 05:35 Albumin 2.1 g/dL (3.5-5.0) L 08/05/17 05:35 Albumin/Globulin Ratio 0.6 (1.1-2.2) L 08/05/17 05:35 Peritoneal RBC 0.020 M/mcL (0.000-0.002) H 08/02/17 09:00 Periton Tot Nuc Cells 370 TNC/mcL (0-300) H 08/02/17 09:00 General appearance: Present: no acute distress - Respiratory Respiratory exam: Present: decreased breath sounds, CTAB - Cardiovascular Cardiovascular exam: Present: +S1, +S2 - GI/Abdominal GI/Abdominal exam: Present: diminished bowel sounds, distended - Extremities Exam Additional comments: 3+ edema bilateral lower extremities - Neurological Exam Neurological exam: Present: alert Additional comments: Oriented to name and place. Disoriented to time and situation - Psychiatric Psychiatric exam: Present: flat affect - Skin Skin exam: Present: dry, pallor, warm Palliative Quality Palliative Quality: Screen for Code Status: Yes, Screen for Goals of Care: Yes, Screen for Pain: Yes, If Pain Regimen Started, Initiate Bowel Regimen: NA, Screen for Nausea/Vomitting: Yes Code Status: 07/31/17 21:40 Resuscitation Status: Active [RES] Routine Comment: Resuscitation Status: Full Code 08/04/17 11:13 DNR [Resuscitation Status: Active] [RES] Routine Comment: Resuscitation Status: DNR-Comfort Care - Labs CBC & Chem 7: 08/05/17 05:35 08/05/17 05:35 Labs: Laboratory Results - last 24 hr 08/03/17 08/04/17 08/04/17 20:37 11:30 16:17 WBC RBC Hgb Hct MCV MCH MCHC RDW Plt Count MPV Immature Gran % Seg Neutrophils % Lymphocytes % Monocytes % Eosinophils % Basophils % Neutrophils # Lymphocytes # Monocytes # Eosinophils # Basophils # Sodium Potassium Chloride Carbon Dioxide BUN Creatinine Est GFR ( Amer) Est GFR (Non-Af Amer) BUN/Creatinine Ratio Glucose POC Glucose 164 H 143 H 147 H Calculated Osmolality Calcium Phosphorus Magnesium Total Bilirubin AST ALT Alkaline Phosphatase Serum Total Protein Albumin Globulin Albumin/Globulin Ratio 08/04/17 08/05/17 08/05/17 20:02 05:35 05:35 WBC 7.2 RBC 3.71 L Hgb 10.7 L Hct 32.0 L MCV 86.3 MCH 28.8 MCHC 33.4 RDW 17.6 H Plt Count 133 L MPV 9.1 L Immature Gran % 0.4 Seg Neutrophils % 68.4 Lymphocytes % 11.0 Monocytes % 17.3 Eosinophils % 2.1 Basophils % 0.8 Neutrophils # 4.9 Lymphocytes # 0.8 Monocytes # 1.2 Eosinophils # 0.2 Basophils # 0.1 Sodium 132 L Potassium 3.8 Chloride 102 Carbon Dioxide 25 BUN 34 H Creatinine 1.18 H Est GFR ( Amer) 56 L Est GFR (Non-Af Amer) 46 L BUN/Creatinine Ratio 29 H Glucose 115 H POC Glucose 165 H Calculated Osmolality 283 Calcium 8.1 L Phosphorus Magnesium Total Bilirubin 2.1 H AST 34 ALT 22 Alkaline Phosphatase 158 H Serum Total Protein 5.4 L Albumin 2.1 L Globulin 3.3 Albumin/Globulin Ratio 0.6 L 08/05/17 05:35 WBC RBC Hgb Hct MCV MCH MCHC RDW Plt Count MPV Immature Gran % Seg Neutrophils % Lymphocytes % Monocytes % Eosinophils % Basophils % Neutrophils # Lymphocytes # Monocytes # Eosinophils # Basophils # Sodium Potassium Chloride Carbon Dioxide BUN Creatinine Est GFR ( Amer) Est GFR (Non-Af Amer) BUN/Creatinine Ratio Glucose POC Glucose Calculated Osmolality Calcium Phosphorus 2.6 Magnesium 1.6 Total Bilirubin AST ALT Alkaline Phosphatase Serum Total Protein Albumin Globulin Albumin/Globulin Ratio - ABG Interpretation ABG results: PT/INR, D-dimer PT 16.7 Seconds (9.4-12.1) H 08/01/17 00:20 Consult Discharge Plan - Plan Referrals: Latha Fikn, DIAPHRAGM BUILDER [Primary Care Provider] - 08/16/17 12:00 pm
--- NOTE | 2017-08-05 15:04 | Internal Med Progress Note ---
Date of Encounter: 08/05/17 Time of Encounter: 15:01 - Assessment and plan (1) Ascites Current Visit: Yes Status: Chronic Assessment and plan: Secondary to cirrhosis of the liver pt reports of getting weekly paracentesis s/p paracentesis (08/02/17) with 8L ascites fluid removal s/p albumin supplementation peritoneal fluid analysis consistent with SBP Continue Cefotaxime 2gm IV q8h (day 04/09) Qualifiers: Ascites type: other type Qualified Code(s): R18.8 - Other ascites (2) SBP (spontaneous bacterial peritonitis) Current Visit: Yes Status: Acute Assessment and plan: as listed above (3) Pleural effusion Current Visit: Yes Status: Acute Assessment and plan: CXR findings reported worsening of left pleural effusion Tolerating Lasix CXR shows improvement, will continue IV diuresis Saturating appropriately on nasal cannula O2 supplementation (4) Cirrhosis Current Visit: Yes Status: Chronic Assessment and plan: noted to have worsening mental status will obtain Ammonia level increased Lactulose dosage to titrate to 2-3 BM/day Qualifiers: Hepatic cirrhosis type: unspecified hepatic cirrhosis Ascites presence: with ascites Qualified Code(s): K74.60 - Unspecified cirrhosis of liver (5) Type 2 diabetes mellitus Current Visit: Yes Status: Chronic Assessment and plan: continue sliding scale insulin algorithm monitor FS and BG Qualifiers: Diabetes mellitus complication status: without complication Diabetes mellitus dedicated intermodal truck driver insulin use: with longterm use Qualified Code(s): E11.9 - Type 2 diabetes mellitus without complications; Z79.4 - senior care (current) use of insulin; Z79.4 - dedicated intermodal truck driver (current) use of insulin; Z79.4 - senior care ( current) use of insulin; Z79.4 - dedicated intermodal truck driver (current) use of insulin (6) GERD (gastroesophageal reflux disease) Current Visit: No Status: Chronic Qualifiers: Esophagitis presence: esophagitis presence not specified Qualified Code(s) : K21.9 - Gastro-esophageal reflux disease without esophagitis (7) Hypertension Current Visit: Yes Status: Chronic Assessment and plan: BP within acceptable range continue to closely monitor holding lisinopril/hctz given KANE Qualifiers: Hypertension type: essential hypertension Qualified Code(s): I10 - Essential (primary) hypertension (8) UTI (urinary tract infection) Current Visit: Yes Status: Acute Assessment and plan: Urine cultures positive for VRE Nitrofurantoin for VRE UTI d/c zyvox as urine culture sensitive to macrobid as well, if pt clinically deteriorates, will restart zyvox Qualifiers: Urinary tract infection type: site unspecified Hematuria presence: without hematuria Qualified Code(s): N39.0 - Urinary tract infection, site not specified (9) KANE (acute kidney injury) Current Visit: Yes Status: Acute Assessment and plan: holding Lisinopril/hctz continue Lasix given severe pleural effusion will closely monitor renal function (10) DVT prophylaxis Current Visit: Yes Status: Acute Assessment and plan: Heparin SQ - Subjective Interval history: Patient seen and examined at bedside. Resting in bed. AAO x 3 however more somnolent than previous day. will obtain ammonia level and increase lactulose dosing. Palliative care consulted to establish goals of care and advance directives. Pt has no family, lives alone, and her recommended friends are hesitant to be her POA. Pt continues to refuse ECF but in agreement to home health. She also changed her code status to DNR-CC (no pressor support, central line in addition to DNR/DNI) - Constitutional Vitals: Temp Pulse Resp BP Pulse Ox 97.6 F 97 20 122/67 92 08/05/17 11:00 08/05/17 11:00 08/05/17 11:00 08/05/17 11:00 08/05/17 11:00 General appearance: Present: disheveled, A&O X 3 (somnolent), no acute distress - Head Head exam: Present: atraumatic, normocephalic - Eye Eye exam: Present: conjuntiva pink, sclera anicteric - Respiratory Respiratory exam: Absent: respiratory distress, wheezes - Cardiovascular Cardiovascular exam: Present: RRR, +S1, +S2. Absent: diastolic murmur, gallop, rubs, systolic murmur - GI/Abdominal GI/Abdominal exam: Present: distended (ascites), normal bowel sounds, soft, no peritoneal signs. Absent: tenderness - Extremities Exam Extremities exam: Present: pedal edema, warm, radial pulses palpable and symmetrical. Absent: calf tenderness - Neurological Exam Neurological exam: Present: alert, oriented X3 - Psychiatric Psychiatric exam: Present: normal affect, normal mood Internal Medicine: Result - Labs CBC & Chem 7: 08/05/17 05:35 08/05/17 05:35 Labs: Short CBC 08/05/17 Range/Units 05:35 WBC 7.2 (4.3-11.1) K/mcL Hgb 10.7 L (11.5-15.4) g/dL Hct 32.0 L (35.3-44.9) % Plt Count 133 L (140-400) K/mcL Neutrophils # 4.9 (1.6-8.9) K/mcL BMP 08/05/17 05:35 Sodium 132 L Potassium 3.8 Chloride 102 Carbon Dioxide 25 BUN 34 H Creatinine 1.18 H Glucose 115 H Calcium 8.1 L Liver Function 08/05/17 Range/Units 05:35 Total Bilirubin 2.1 H (0.2-1.2) mg/dL AST 34 (5-34) Units/L ALT 22 (0-55) Units/L Alkaline Phosphatase 158 H (38-126) Units/L Albumin 2.1 L (3.5-5.0) g/dL - ABG Interpretation ABG results: PT/INR, D-dimer PT 16.7 Seconds (9.4-12.1) H 08/01/17 00:20 - VTE Documentation of Mechanical Device: Intermittent pneumatic compression device Consult Discharge Plan - Plan Referrals: Latha Fink CNP [Primary Care Provider] - 08/16/17 12:00 pm
[2017-08-05] MEDS: Insulin DETEMIR 100 UNIT/ML X5UNITS SQ SCH (22:17)
[2017-08-05] MEDS: Gabapentin 300 MG CAPSULE PO SCH (22:17)
[2017-08-06] MEDS: Ipratropium/Albuterol Neb 3 ML IH SCH ×4 (04:35→22:18)
[2017-08-06] MEDS: Cefotaxime 2,000 MG in D5% in Water 100 ML IVPB SCH ×3 (05:47→22:04)
[2017-08-06] MEDS: *HR* Heparin 5,000 UNIT/ML VIAL SQ SCH ×2 (05:48→18:56)
[2017-08-06 07:58] LABS: Magnesium 1.6 mg/dL (1.6-2.6); Phosphorous 2.5 mg/dL (2.3-4.7)
[2017-08-06 07:59] LABS: Albumin 2.1 g/dL (3.5-5.0); Albumin/Globulin Ratio 0.6 (1.1-2.2); Bilirubin,Total 2.2 mg/dL (0.2-1.2); Calcium 8.2 mg/dL (8.6-10.8); Globulin 3.3 g/dL (2.4-3.5); Potassium 3.7 mEq/L (3.5-4.5); Total Protein 5.4 g/dL (6.0-8.3)
[2017-08-06 08:21] LABS: Basophils # 0.1 K/mcL (0.0-0.2); Basophils % 0.8 %; Eosinophils # 0.1 K/mcL (0.0-0.6); Hematocrit 30.8 % (35.3-44.9); Hemoglobin 10.2 g/dL (11.5-15.4); Lymphocytes # 0.6 K/mcL (0.6-4.6); Lymphocytes % 10.4 %; Mean Corpuscular HGB Conc 33.1 g/dL (31.6-35.5); Mean Corpuscular Hemoglobin 28.3 pg (28.0-33.3); Mean Corpuscular Volume 85.6 fL (83.0-100.0); Mean Platelet Volume 9.5 fL (9.4-12.4); Monocytes % 16.2 %; Neutrophils # 4.2 K/mcL (1.6-8.9); Platelet Count 111 K/mcL (140-400); Red Cell Distribution Width 17.2 % (11.5-14.5); Segmented Neutrophils % 69.6 %
[2017-08-06] MEDS: Lactulose Oral Soln 20 GM/30 ML UDC PO SCH ×3 (10:01→21:29)
[2017-08-06] MEDS: Venlafaxine XR (24 HR) 150 MG CAP.ER.24H PO SCH (10:02)
[2017-08-06] MEDS: Nitrofurantoin (BID) 100 MG CAPSULE PO SCH ×2 (10:03→18:54)
[2017-08-06] MEDS: Furosemide 40 MG/4 ML VIAL IVP SCH ×2 (10:06→18:55)
[2017-08-06] MEDS: Insulin LISPRO 300 UNITS/3 ML VIAL SQ SCH ×4 (10:14→21:30)
--- NOTE | 2017-08-06 10:48 | Internal Med Progress Note ---
Date of Encounter: 08/06/17 Time of Encounter: 10:42 - Assessment and plan (1) Ascites Current Visit: Yes Status: Chronic Assessment and plan: Secondary to cirrhosis of the liver pt reports of getting weekly paracentesis s/p paracentesis (08/02/17) with 8L ascites fluid removal s/p albumin supplementation peritoneal fluid analysis consistent with SBP Continue Cefotaxime 2gm IV q8h (day 06/09) Qualifiers: Ascites type: other type Qualified Code(s): R18.8 - Other ascites (2) SBP (spontaneous bacterial peritonitis) Current Visit: Yes Status: Acute Assessment and plan: as listed above (3) Pleural effusion Current Visit: Yes Status: Acute Assessment and plan: CXR findings reported worsening of left pleural effusion Tolerating Lasix CXR shows improvement, will continue IV diuresis Saturating appropriately on nasal cannula O2 supplementation (4) Cirrhosis Current Visit: Yes Status: Chronic Assessment and plan: Reported to have 2 bowel movements overnight will continue with current Lactulose dose Pt able to converse more compared to yesterday Qualifiers: Hepatic cirrhosis type: unspecified hepatic cirrhosis Ascites presence: with ascites Qualified Code(s): K74.60 - Unspecified cirrhosis of liver (5) Type 2 diabetes mellitus Current Visit: Yes Status: Chronic Assessment and plan: continue sliding scale insulin algorithm monitor FS and BG Qualifiers: Diabetes mellitus complication status: without complication Diabetes mellitus meterman insulin use: with [facility] use Qualified Code(s): E11.9 - Type 2 diabetes mellitus without complications; Z79.4 - meterman (current) use of insulin; Z79.4 - detention (current) use of insulin; Z79.4 - detention ( current) use of insulin; Z79.4 - meterman (current) use of insulin (6) GERD (gastroesophageal reflux disease) Current Visit: No Status: Chronic Qualifiers: Esophagitis presence: esophagitis presence not specified Qualified Code(s) : K21.9 - Gastro-esophageal reflux disease without esophagitis (7) Hypertension Current Visit: Yes Status: Chronic Assessment and plan: BP within acceptable range continue to closely monitor holding lisinopril/hctz given KANE Qualifiers: Hypertension type: essential hypertension Qualified Code(s): I10 - Essential (primary) hypertension (8) UTI (urinary tract infection) Current Visit: Yes Status: Acute Assessment and plan: Urine cultures positive for VRE Nitrofurantoin for VRE UTI d/omar zyvox as urine culture sensitive to macrobid as well, if pt clinically deteriorates, will restart zyvox (9) KANE (acute kidney injury) Current Visit: Yes Status: Acute Assessment and plan: holding Lisinopril/hctz continue Lasix given severe pleural effusion renal function mildly improved compared to previous day will closely monitor renal function (10) DVT prophylaxis Current Visit: Yes Status: Acute Assessment and plan: Heparin SQ - Subjective Interval history: Patient seen and examined at bedside. Resting in bed. AAO x 3 however remains somnolent, easily arousable and able to communicate. States she just wants to go home and in her own bed. States she would like to start hospice care Pt has no family and lives alone, given her frail status, she is an unsafe discharge to home. Palliative care spoke with the patient yesterday and her code status is DNRCC ( no pressor support, central line in addition to DNR/DNI) Will await palliative care follow up to assist with transition to hospice care. - Constitutional Vitals: Temp Pulse Resp BP Pulse Ox 97.8 F 91 16 113/66 97 08/06/17 07:00 08/06/17 07:00 08/06/17 07:00 08/06/17 07:00 08/06/17 07:00 General appearance: Present: disheveled, A&O X 3 (somnolent, frail ), no acute distress, obese - Head Head exam: Present: atraumatic, normocephalic - Eye Eye exam: Present: conjuntiva pink, sclera anicteric - Respiratory Respiratory exam: Absent: respiratory distress, wheezes - Cardiovascular Cardiovascular exam: Present: RRR, +S1, +S2. Absent: diastolic murmur, gallop, rubs, systolic murmur - GI/Abdominal GI/Abdominal exam: Present: normal bowel sounds, soft, no peritoneal signs. Absent: distended, tenderness - Extremities Exam Extremities exam: Present: pedal edema, warm, radial pulses palpable and symmetrical. Absent: calf tenderness - Neurological Exam Neurological exam: Present: alert, oriented X3 Internal Medicine: Result - Labs CBC & Chem 7: 08/06/17 06:58 08/06/17 06:58 Labs: Short CBC 08/06/17 Range/Units 06:58 WBC 6.0 (4.3-11.1) K/mcL Hgb 10.2 L (11.5-15.4) g/dL Hct 30.8 L (35.3-44.9) % Plt Count 111 L (140-400) K/mcL Neutrophils # 4.2 (1.6-8.9) K/mcL BMP 08/06/17 06:58 Sodium 132 L Potassium 3.7 Chloride 101 Carbon Dioxide 25 BUN 36 H Creatinine 1.17 H Glucose 159 H Calcium 8.2 L Liver Function 08/06/17 Range/Units 06:58 Total Bilirubin 2.2 H (0.2-1.2) mg/dL AST 38 H (5-34) Units/L ALT 23 (0-55) Units/L Alkaline Phosphatase 165 H (38-126) Units/L Albumin 2.1 L (3.5-5.0) g/dL - ABG Interpretation ABG results: PT/INR, D-dimer PT 16.7 Seconds (9.4-12.1) H 08/01/17 00:20 - VTE Documentation of Mechanical Device: Intermittent pneumatic compression device Consult Discharge Plan - Plan Referrals: Latha Fikn, APPOINTMENT CLERK [Primary Care Provider] - 08/16/17 12:00 pm
[2017-08-06] MEDS: Gabapentin 300 MG CAPSULE PO SCH (21:29)
[2017-08-06] MEDS: Insulin DETEMIR 100 UNIT/ML X5UNITS SQ SCH (21:29)
[2017-08-07] MEDS: Ipratropium/Albuterol Neb 3 ML IH SCH ×4 (04:03→22:23)
[2017-08-07] MEDS: *HR* Heparin 5,000 UNIT/ML VIAL SQ SCH ×2 (06:01→17:44)
[2017-08-07] MEDS: Cefotaxime 2,000 MG in D5% in Water 100 ML IVPB SCH ×2 (06:02→12:50)
[2017-08-07] MEDS: Venlafaxine XR (24 HR) 150 MG CAP.ER.24H PO SCH (07:49)
[2017-08-07] MEDS: Furosemide 40 MG/4 ML VIAL IVP SCH ×2 (07:49→17:44)
[2017-08-07] MEDS: Nitrofurantoin (BID) 100 MG CAPSULE PO SCH ×2 (07:49→17:43)
[2017-08-07] MEDS: Insulin LISPRO 300 UNITS/3 ML VIAL SQ SCH ×4 (07:55→20:43)
[2017-08-07 08:11] LABS: Basophils % 0.4 %; Eosinophils # 0.2 K/mcL (0.0-0.6); Eosinophils % 2.2 %; Hematocrit 33.3 % (35.3-44.9); Hemoglobin 11.2 g/dL (11.5-15.4); Immature Granulocytes % 0.3 % (0-4); Lymphocytes # 0.6 K/mcL (0.6-4.6); Lymphocytes % 9.3 %; Mean Corpuscular HGB Conc 33.6 g/dL (31.6-35.5); Mean Corpuscular Hemoglobin 29.5 pg (28.0-33.3); Mean Corpuscular Volume 87.6 fL (83.0-100.0); Mean Platelet Volume 9.1 fL (9.4-12.4); Monocytes % 15.1 %; Platelet Count 129 K/mcL (140-400); Red Cell Distribution Width 17.4 % (11.5-14.5); Segmented Neutrophils % 72.7 %
[2017-08-07] MEDS: Lactulose Oral Soln 20 GM/30 ML UDC PO SCH ×3 (08:15→20:28)
[2017-08-07 08:26] LABS: Calcium 8.3 mg/dL (8.6-10.8); Magnesium 1.7 mg/dL (1.6-2.6); Phosphorous 2.5 mg/dL (2.3-4.7)
--- NOTE | 2017-08-07 11:01 | Internal Med Progress Note ---
Date of Encounter: 08/07/17 Time of Encounter: 10:58 - Assessment and plan (1) Ascites Current Visit: Yes Status: Chronic Assessment and plan: Secondary to cirrhosis of the liver pt reports of getting weekly paracentesis s/p paracentesis (08/02/17) with 8L ascites fluid removal s/p albumin supplementation peritoneal fluid analysis consistent with SBP Continue Cefotaxime 2gm IV q8h (day 07/10) Qualifiers: Ascites type: other type Qualified Code(s): R18.8 - Other ascites (2) SBP (spontaneous bacterial peritonitis) Current Visit: Yes Status: Acute Assessment and plan: as listed above (3) Pleural effusion Current Visit: Yes Status: Acute Assessment and plan: CXR findings reported worsening of left pleural effusion Tolerating Lasix CXR shows improvement, will continue IV diuresis Saturating appropriately on nasal cannula O2 supplementation Pt's I/Os have not been monitored, strict I/Os will repeat CXR in am (4) Cirrhosis Current Visit: Yes Status: Chronic Assessment and plan: pt encouraged to lactulose as scheduled Qualifiers: Hepatic cirrhosis type: unspecified hepatic cirrhosis Ascites presence: with ascites Qualified Code(s): K74.60 - Unspecified cirrhosis of liver (5) Type 2 diabetes mellitus Current Visit: Yes Status: Chronic Assessment and plan: continue sliding scale insulin algorithm monitor FS and BG Qualifiers: Diabetes mellitus complication status: without complication Diabetes mellitus wind science and planning insulin use: with senior living use Qualified Code(s): E11.9 - Type 2 diabetes mellitus without complications; Z79.4 - USP (current) use of insulin; Z79.4 - pastry assistant (current) use of insulin; Z79.4 - pastry assistant ( current) use of insulin; Z79.4 - USP (current) use of insulin (6) GERD (gastroesophageal reflux disease) Current Visit: No Status: Chronic Qualifiers: Esophagitis presence: esophagitis presence not specified Qualified Code(s) : K21.9 - Gastro-esophageal reflux disease without esophagitis (7) Hypertension Current Visit: Yes Status: Chronic Assessment and plan: BP within acceptable range continue to closely monitor holding lisinopril/hctz given KANE Qualifiers: Hypertension type: essential hypertension Qualified Code(s): I10 - Essential (primary) hypertension (8) UTI (urinary tract infection) Current Visit: Yes Status: Acute Assessment and plan: Urine cultures positive for VRE Nitrofurantoin for VRE UTI d/omar zyvox as urine culture sensitive to macrobid as well, if pt clinically deteriorates, will restart zyvox (9) KANE (acute kidney injury) Current Visit: Yes Status: Acute Assessment and plan: holding Lisinopril/hctz continue Lasix given severe pleural effusion renal function mildly improved compared to previous day will closely monitor renal function (10) DVT prophylaxis Current Visit: Yes Status: Acute Assessment and plan: Heparin SQ - Subjective Interval history: Patient seen and examined at bedside. Resting in bed. AAO x 3. Has been refusing her lactulose dose, refusing vital monitoring. States she doesn't want any more treatments and wants to pursue hospice, however she is agreeing to abx support. Pt has no family and lives alone, given her frail status, she is an unsafe discharge to home. Palliative care spoke with the patient yesterday and her code status is DNRCC ( no pressor support, central line in addition to DNR/DNI) Will await palliative care follow up to assist with transition to hospice care. - Constitutional Vitals: Temp Pulse Resp BP Pulse Ox 97.6 F 88 16 131/77 94 08/07/17 08:03 08/07/17 08:03 08/07/17 08:03 08/07/17 08:03 08/07/17 08:03 General appearance: Present: disheveled, A&O X 3 (somnolent, frail ), no acute distress, obese - Head Head exam: Present: atraumatic, normocephalic - Eye Eye exam: Present: conjuntiva pink, sclera anicteric - Respiratory Respiratory exam: Absent: respiratory distress, wheezes - Cardiovascular Cardiovascular exam: Present: RRR, +S1, +S2. Absent: diastolic murmur, gallop, rubs, systolic murmur - GI/Abdominal GI/Abdominal exam: Present: distended (ascites), normal bowel sounds, soft. Absent: tenderness - Extremities Exam Extremities exam: Present: pedal edema, warm, radial pulses palpable and symmetrical. Absent: calf tenderness - Neurological Exam Neurological exam: Present: alert, oriented X3 Internal Medicine: Result - Labs CBC & Chem 7: 08/07/17 07:59 08/07/17 07:59 Labs: Short CBC 08/07/17 Range/Units 07:59 WBC 6.9 (4.3-11.1) K/mcL Hgb 11.2 L (11.5-15.4) g/dL Hct 33.3 L (35.3-44.9) % Plt Count 129 L (140-400) K/mcL Neutrophils # 5.0 (1.6-8.9) K/mcL BMP 08/07/17 07:59 Sodium 133 L Potassium 4.0 Chloride 101 Carbon Dioxide 25 BUN 37 H Creatinine 1.30 H Glucose 102 H Calcium 8.3 L - ABG Interpretation ABG results: PT/INR, D-dimer PT 16.7 Seconds (9.4-12.1) H 08/01/17 00:20 - VTE Documentation of Mechanical Device: Intermittent pneumatic compression device Consult Discharge Plan - Plan Referrals: Latha Fink, INSPECTION AND TESTING SUPERVISOR [Primary Care Provider] - 08/16/17 12:00 pm
[2017-08-07] MEDS: Insulin DETEMIR 100 UNIT/ML X5UNITS SQ SCH (20:28)
[2017-08-07] MEDS: Gabapentin 300 MG CAPSULE PO SCH (20:28)
[2017-08-08] MEDS ORDERED: Cefotaxime 2,000 MG in D5% in Water 100 ML IVPB SCH (01:00)
[2017-08-08] MEDS: Ipratropium/Albuterol Neb 3 ML IH SCH ×4 (03:45→21:11)
[2017-08-08 04:10] LABS: Basophils % 0.5 %; Eosinophils # 0.1 K/mcL (0.0-0.6); Eosinophils % 2.1 %; Hematocrit 32.8 % (35.3-44.9); Hemoglobin 10.6 g/dL (11.5-15.4); Immature Granulocytes % 0.5 % (0-4); Lymphocytes # 0.6 K/mcL (0.6-4.6); Mean Corpuscular HGB Conc 32.3 g/dL (31.6-35.5); Mean Corpuscular Volume 86.5 fL (83.0-100.0); Mean Platelet Volume 9.4 fL (9.4-12.4); Monocytes # 1.2 K/mcL (0.0-1.3); Monocytes % 20.8 %; Neutrophils # 3.7 K/mcL (1.6-8.9); Platelet Count 129 K/mcL (140-400); Red Blood Count 3.79 M/mcL (3.82-4.97); Red Cell Distribution Width 17.1 % (11.5-14.5); Segmented Neutrophils % 65.1 %
[2017-08-08 04:28] LABS: Calcium 8.2 mg/dL (8.6-10.8); Magnesium 1.7 mg/dL (1.6-2.6); Phosphorous 2.1 mg/dL (2.3-4.7); Potassium 4.1 mEq/L (3.5-4.5)
[2017-08-08 04:41] LABS: Platelet Estimate Decreased (Normal)
[2017-08-08] MEDS: *HR* Heparin 5,000 UNIT/ML VIAL SQ SCH ×2 (07:04→20:14)
[2017-08-08] MEDS: Insulin LISPRO 300 UNITS/3 ML VIAL SQ SCH ×4 (09:06→20:39)
[2017-08-08] MEDS: Furosemide 40 MG/4 ML VIAL IVP SCH ×2 (10:02→17:05)
[2017-08-08] MEDS: Lactulose Oral Soln 20 GM/30 ML UDC PO SCH ×3 (10:02→20:14)
[2017-08-08] MEDS: Venlafaxine XR (24 HR) 150 MG CAP.ER.24H PO SCH (10:03)
[2017-08-08] MEDS: Nitrofurantoin (BID) 100 MG CAPSULE PO SCH ×2 (10:03→17:05)
--- NOTE | 2017-08-08 10:11 | Palliative Progress Note ---
Date of Encounter: 08/08/17 Time of Encounter: 10:10 - Assessment and plan (1) Malnutrition Current Visit: Yes Status: Acute Assessment and plan: Eating at least 50-75% of most meals. Monitor Qualifiers: Malnutrition type: unspecified type Qualified Code(s): E46 - Unspecified protein-calorie malnutrition (2) Counseling regarding advanced care planning and goals of care Current Visit: Yes Status: Acute Assessment and plan: SW and I met with pt this am. She is still insisting. Discussed that she needs to get up and prove that she is safe with therapy. She states she would work with them and start walking. She DOES have Medicaid, so if cannot return home, she can be placed at [facility] with Hospice. (3) UTI (urinary tract infection) Current Visit: Yes Status: Acute Qualifiers: Urinary tract infection type: site unspecified Hematuria presence: without hematuria Qualified Code(s): N39.0 - Urinary tract infection, site not specified (4) Cirrhosis Current Visit: Yes Status: Chronic Qualifiers: Hepatic cirrhosis type: unspecified hepatic cirrhosis Ascites presence: with ascites Qualified Code(s): K74.60 - Unspecified cirrhosis of liver - Time Spent With Patient Total time spent is greater than 50% in coordination of care (as documented) at patient's floor/unit and/or counseling patient: 25 - 35 minutes - Subjective Interval history: Patient awake and alert...Conversant. Alert and oriented. C/o some abd pain. Has been refusing some medications over this weekend. - Constitutional Vitals: Abnormal lab results RBC 3.79 M/mcL (3.82-4.97) L 08/08/17 03:28 Hgb 10.6 g/dL (11.5-15.4) L 08/08/17 03:28 Hct 32.8 % (35.3-44.9) L 08/08/17 03:28 RDW 17.1 % (11.5-14.5) H 08/08/17 03:28 Plt Count 129 K/mcL (140-400) L 08/08/17 03:28 Platelet Estimate Decreased (Normal) L 08/08/17 03:28 PT 16.7 Seconds (9.4-12.1) H 08/01/17 00:20 Sodium 132 mEq/L (136-145) L 08/08/17 03:28 BUN 39 mg/dL (7-20) H 08/08/17 03:28 Creatinine 1.27 mg/dL (0.57-1.11) H 08/08/17 03:28 Est GFR ( Amer) 51 (> 60) L 08/08/17 03:28 Est GFR (Non-Af Amer) 42 (> 60) L 08/08/17 03:28 BUN/Creatinine Ratio 31 (6-26) H 08/08/17 03:28 Glucose 131 mg/dL (70-99) H 08/08/17 03:28 POC Glucose 139 (58-89) H 08/07/17 13:14 Calcium 8.2 mg/dL (8.6-10.8) L 08/08/17 03:28 Phosphorus 2.1 mg/dL (2.3-4.7) L 08/08/17 03:28 Total Bilirubin 2.2 mg/dL (0.2-1.2) H 08/06/17 06:58 AST 38 Units/L (5-34) H 08/06/17 06:58 Alkaline Phosphatase 165 Units/L (38-126) H 08/06/17 06:58 Serum Total Protein 5.4 g/dL (6.0-8.3) L 08/06/17 06:58 Albumin 2.1 g/dL (3.5-5.0) L 08/06/17 06:58 Albumin/Globulin Ratio 0.6 (1.1-2.2) L 08/06/17 06:58 Peritoneal RBC 0.020 M/mcL (0.000-0.002) H 08/02/17 09:00 Periton Tot Nuc Cells 370 TNC/mcL (0-300) H 08/02/17 09:00 General appearance: Present: no acute distress - Respiratory Respiratory exam: Present: decreased breath sounds, CTAB - Cardiovascular Cardiovascular exam: Present: +S1, +S2 - GI/Abdominal GI/Abdominal exam: Present: diminished bowel sounds, distended - Extremities Exam Additional comments: 3+ bilateral edema lower extremities - Neurological Exam Neurological exam: Present: alert, oriented X3 - Skin Skin exam: Present: dry, warm Palliative Quality Palliative Quality: Screen for Code Status: Yes, Screen for Goals of Care: Yes, Screen for Pain: Yes, If Pain Regimen Started, Initiate Bowel Regimen: NA, Screen for Nausea/Vomitting: Yes Code Status: 07/31/17 21:40 Resuscitation Status: Active [RES] Routine Comment: Resuscitation Status: Full Code 08/04/17 11:13 DNR [Resuscitation Status: Active] [RES] Routine Comment: Resuscitation Status: DNR-Comfort Care - Labs CBC & Chem 7: 08/08/17 03:28 08/08/17 03:28 Labs: Laboratory Results - last 24 hr 08/07/17 08/08/17 08/08/17 13:14 03:28 03:28 WBC 5.6 RBC 3.79 L Hgb 10.6 L Hct 32.8 L MCV 86.5 MCH 28.0 MCHC 32.3 RDW 17.1 H Plt Count 129 L MPV 9.4 Immature Gran % 0.5 Seg Neutrophils % 65.1 Lymphocytes % 11.0 Monocytes % 20.8 Eosinophils % 2.1 Basophils % 0.5 Neutrophils # 3.7 Lymphocytes # 0.6 Monocytes # 1.2 Eosinophils # 0.1 Basophils # 0.0 Platelet Estimate Decreased L Sodium 132 L Potassium 4.1 Chloride 101 Carbon Dioxide 25 BUN 39 H Creatinine 1.27 H Est GFR ( Amer) 51 L Est GFR (Non-Af Amer) 42 L BUN/Creatinine Ratio 31 H Glucose 131 H POC Glucose 139 H Calculated Osmolality 285 Calcium 8.2 L Phosphorus 2.1 L Magnesium 1.7 - Impressions Impressions Chest X-Ray 08/08/17 08:53 IMPRESSION: Large left pleural effusion and smaller right pleural effusion without improvement. D/ / 08/08/2017 09:36:55 Napoleon Solis MD / florentin Interpreting Provider: Napoleon Solis MD - ABG Interpretation ABG results: PT/INR, D-dimer PT 16.7 Seconds (9.4-12.1) H 08/01/17 00:20 Consult Discharge Plan - Plan Referrals: Latha Fink, INTERLOCKER MAINTAINER [Primary Care Provider] - 08/16/17 12:00 pm
[2017-08-08] MEDS: Cefotaxime 2,000 MG in D5% in Water 100 ML IVPB SCH ×2 (12:40→20:13)
--- NOTE | 2017-08-08 15:27 | Internal Med Progress Note ---
Date of Encounter: 08/08/17 Time of Encounter: 15:20 - Assessment and plan (1) Ascites Current Visit: Yes Status: Chronic Assessment and plan: Secondary to cirrhosis of the liver pt reports of getting weekly paracentesis s/p paracentesis (08/02/17) with 8L ascites fluid removal s/p albumin supplementation peritoneal fluid analysis consistent with SBP Continue Cefotaxime 2gm IV q8h (day 08/09) IR consulted for therapeutic paracentesis Qualifiers: Ascites type: other type Qualified Code(s): R18.8 - Other ascites (2) SBP (spontaneous bacterial peritonitis) Current Visit: Yes Status: Acute Assessment and plan: as listed above (3) Pleural effusion Current Visit: Yes Status: Acute Assessment and plan: CXR findings reported worsening of left pleural effusion Tolerating Lasix Repeat CXR shows worsening effusion. IR consulted for therapeutic thoracentesis Saturating appropriately on nasal cannula O2 supplementation strict I/Os (4) Cirrhosis Current Visit: Yes Status: Chronic Assessment and plan: pt encouraged to lactulose as scheduled Qualifiers: Hepatic cirrhosis type: unspecified hepatic cirrhosis Ascites presence: with ascites Qualified Code(s): K74.60 - Unspecified cirrhosis of liver (5) Type 2 diabetes mellitus Current Visit: Yes Status: Chronic Assessment and plan: continue sliding scale insulin algorithm monitor FS and BG Qualifiers: Diabetes mellitus complication status: without complication Diabetes mellitus custodial insulin use: with intermediate teacher use Qualified Code(s): E11.9 - Type 2 diabetes mellitus without complications; Z79.4 - intermediate teacher (current) use of insulin; Z79.4 - intermediate teacher (current) use of insulin; Z79.4 - intermediate teacher ( current) use of insulin; Z79.4 - intermediate teacher (current) use of insulin (6) GERD (gastroesophageal reflux disease) Current Visit: No Status: Chronic Qualifiers: Esophagitis presence: esophagitis presence not specified Qualified Code(s) : K21.9 - Gastro-esophageal reflux disease without esophagitis (7) Hypertension Current Visit: Yes Status: Chronic Assessment and plan: BP within acceptable range continue to closely monitor holding lisinopril/hctz given KANE Qualifiers: Hypertension type: essential hypertension Qualified Code(s): I10 - Essential (primary) hypertension (8) UTI (urinary tract infection) Current Visit: Yes Status: Acute Assessment and plan: Urine cultures positive for VRE Nitrofurantoin for VRE UTI d/omar zyvox as urine culture sensitive to macrobid as well, if pt clinically deteriorates, will restart zyvox DAy 5/10 of abx (9) KANE (acute kidney injury) Current Visit: Yes Status: Acute Assessment and plan: holding Lisinopril/hctz continue Lasix given severe pleural effusion renal function mildly improved compared to previous day will closely monitor renal function (10) DVT prophylaxis Current Visit: Yes Status: Acute Assessment and plan: Heparin SQ - Subjective Interval history: Patient seen and examined at bedside. Resting in bed. AAO x 3. Has been refusing her lactulose dose, refusing vital monitoring. States she doesn't want any more treatments and wants to pursue hospice, however she is agreeing to abx support. She is also asking for paracentesis because of the abd discomfort. She is noted to have persistent large left pleural effusion. Will get therapeutic thoracentesis by IR in am. Pt has no family and lives alone, given her frail status, she is an unsafe discharge to home. Palliative care spoke with the patient yesterday and her code status is DNRCC ( no pressor support, central line in addition to DNR/DNI) Will await palliative care follow up to assist with transition to hospice care. - Constitutional Vitals: Temp Pulse Resp BP Pulse Ox 97.6 F 85 18 127/71 92 08/08/17 11:06 08/08/17 11:06 08/08/17 11:06 08/08/17 11:06 08/08/17 11:06 General appearance: Present: disheveled, A&O X 3, no acute distress, obese - Head Head exam: Present: atraumatic, normocephalic - Eye Eye exam: Present: conjuntiva pink, sclera anicteric - Respiratory Respiratory exam: Present: decreased breath sounds. Absent: respiratory distress, wheezes - Cardiovascular Cardiovascular exam: Present: RRR, +S1, +S2. Absent: diastolic murmur, gallop, rubs, systolic murmur - GI/Abdominal GI/Abdominal exam: Present: distended (ascites, positive fluid wave ), normal bowel sounds, soft, no peritoneal signs. Absent: tenderness - Extremities Exam Extremities exam: Present: pedal edema, warm, radial pulses palpable and symmetrical. Absent: calf tenderness - Neurological Exam Neurological exam: Present: alert, oriented X3 Internal Medicine: Result - Labs CBC & Chem 7: 08/08/17 03:28 08/08/17 03:28 Labs: Short CBC 08/08/17 Range/Units 03:28 WBC 5.6 (4.3-11.1) K/mcL Hgb 10.6 L (11.5-15.4) g/dL Hct 32.8 L (35.3-44.9) % Plt Count 129 L (140-400) K/mcL Neutrophils # 3.7 (1.6-8.9) K/mcL BMP 08/08/17 03:28 Sodium 132 L Potassium 4.1 Chloride 101 Carbon Dioxide 25 BUN 39 H Creatinine 1.27 H Glucose 131 H Calcium 8.2 L - ABG Interpretation ABG results: PT/INR, D-dimer PT 16.7 Seconds (9.4-12.1) H 08/01/17 00:20 - Impressions Impressions Chest X-Ray 08/08/17 08:53 IMPRESSION: Large left pleural effusion and smaller right pleural effusion without improvement. D/ / 08/08/2017 09:36:55 Napoleon Solis MD / florentin Interpreting Provider: Napoleon Solis MD - VTE Documentation of Mechanical Device: Intermittent pneumatic compression device Consult Discharge Plan - Plan Referrals: Latha Fink, ROD PLACER [Primary Care Provider] - 08/16/17 12:00 pm
[2017-08-08] MEDS: Gabapentin 300 MG CAPSULE PO SCH (20:14)
[2017-08-08] MEDS: Insulin DETEMIR 100 UNIT/ML X5UNITS SQ SCH (20:43)
[2017-08-08] MEDS ORDERED: Acetaminophen 325 MG TABLET PO PRN (22:38)
[2017-08-09] MEDS: Cefotaxime 2,000 MG in D5% in Water 100 ML IVPB SCH ×2 (03:56→11:50)
[2017-08-09] MEDS: Ipratropium/Albuterol Neb 3 ML IH SCH ×4 (04:01→21:52)
[2017-08-09] MEDS: *HR* Heparin 5,000 UNIT/ML VIAL SQ SCH ×2 (06:09→16:50)
[2017-08-09 06:27] LABS: Eosinophils # 0.1 K/mcL (0.0-0.6); Hematocrit 32.3 % (35.3-44.9); Hemoglobin 10.8 g/dL (11.5-15.4); Mean Corpuscular HGB Conc 33.4 g/dL (31.6-35.5); Mean Corpuscular Hemoglobin 28.8 pg (28.0-33.3); Mean Corpuscular Volume 86.1 fL (83.0-100.0); Mean Platelet Volume 9.1 fL (9.4-12.4); Platelet Count 125 K/mcL (140-400); Red Blood Count 3.75 M/mcL (3.82-4.97); Red Cell Distribution Width 16.9 % (11.5-14.5)
[2017-08-09 06:36] LABS: Calcium 8.2 mg/dL (8.6-10.8); Magnesium 1.7 mg/dL (1.6-2.6); Potassium 3.9 mEq/L (3.5-4.5)
[2017-08-09 07:03] LABS: Anisocytosis 1+ (Not Present); Hypochromasia Present (Not Present); Lymphocytes # 1.1 K/mcL (0.6-4.6); Macrocytosis Present (Not Present); Monocytes # 0.3 K/mcL (0.0-1.3); Neutrophils # 3.9 K/mcL (1.6-8.9); Platelet Estimate Slight Decrease (Normal)
[2017-08-09] MEDS: Insulin LISPRO 300 UNITS/3 ML VIAL SQ SCH ×4 (09:20→20:52)
[2017-08-09] MEDS: Nitrofurantoin (BID) 100 MG CAPSULE PO SCH ×2 (09:30→16:49)
[2017-08-09] MEDS: Venlafaxine XR (24 HR) 150 MG CAP.ER.24H PO SCH (09:31)
[2017-08-09] MEDS: Furosemide 40 MG/4 ML VIAL IVP SCH ×2 (09:32→16:49)
[2017-08-09] MEDS: Lactulose Oral Soln 20 GM/30 ML UDC PO SCH ×3 (09:32→20:51)
--- NOTE | 2017-08-09 12:50 | Palliative Progress Note ---
Date of Encounter: 08/09/17 Time of Encounter: 09:00 - Assessment and plan (1) Malnutrition Current Visit: Yes Status: Acute Assessment and plan: Appetite has been good. Extent of her disease will lead to further cachexia and protein calorie malnutrition. Qualifiers: Malnutrition type: unspecified type Qualified Code(s): E46 - Unspecified protein-calorie malnutrition (2) Counseling regarding advanced care planning and goals of care Current Visit: Yes Status: Acute Assessment and plan: Patient is now open and willing to go to rehab. She desires [facility], as her mother and another relative are there. She continues to desire to do physical therapy there. Awaiting paracentesis and thoracentesis today. She is completing power of erisa attorney with social media specialist appointing daughters as her decision makers. SW will be working on approval for placement. D/W Dr. Bloom. (3) UTI (urinary tract infection) Current Visit: Yes Status: Acute Qualifiers: Urinary tract infection type: site unspecified Hematuria presence: without hematuria Qualified Code(s): N39.0 - Urinary tract infection, site not specified (4) Cirrhosis Current Visit: Yes Status: Chronic Qualifiers: Hepatic cirrhosis type: unspecified hepatic cirrhosis Ascites presence: with ascites Qualified Code(s): K74.60 - Unspecified cirrhosis of liver - Time Spent With Patient Total time spent is greater than 50% in coordination of care (as documented) at patient's floor/unit and/or counseling patient: 25 - 35 minutes - Subjective Interval history: Patient awake and alert...Conversant. Alert and oriented. C/o some abd pain. Anxious for paracentesis. Patient has discussed with daughters and is now open to go to rehab. - Constitutional Vitals: Abnormal lab results RBC 3.75 M/mcL (3.82-4.97) L 08/09/17 06:10 Hgb 10.8 g/dL (11.5-15.4) L 08/09/17 06:10 Hct 32.3 % (35.3-44.9) L 08/09/17 06:10 RDW 16.9 % (11.5-14.5) H 08/09/17 06:10 Plt Count 125 K/mcL (140-400) L 08/09/17 06:10 MPV 9.1 fL (9.4-12.4) L 08/09/17 06:10 Platelet Estimate Slight Decrease (Normal) L 08/09/17 06:10 Hypochromasia Present (Not Present) A 08/09/17 06:10 Anisocytosis 1+ (Not Present) A 08/09/17 06:10 Macrocytosis Present (Not Present) A 08/09/17 06:10 PT 16.7 Seconds (9.4-12.1) H 08/01/17 00:20 Sodium 130 mEq/L (136-145) L 08/09/17 06:10 BUN 42 mg/dL (7-20) H 08/09/17 06:10 Creatinine 1.14 mg/dL (0.57-1.11) H 08/09/17 06:10 Est GFR ( Amer) 58 (> 60) L 08/09/17 06:10 Est GFR (Non-Af Amer) 48 (> 60) L 08/09/17 06:10 BUN/Creatinine Ratio 37 (6-26) H 08/09/17 06:10 POC Glucose 117 (58-89) H 08/09/17 11:23 Calculated Osmolality 279 (280-300) L 08/09/17 06:10 Calcium 8.2 mg/dL (8.6-10.8) L 08/09/17 06:10 Phosphorus 2.0 mg/dL (2.3-4.7) L 08/09/17 06:10 Total Bilirubin 2.2 mg/dL (0.2-1.2) H 08/06/17 06:58 AST 38 Units/L (5-34) H 08/06/17 06:58 Alkaline Phosphatase 165 Units/L (38-126) H 08/06/17 06:58 Serum Total Protein 5.4 g/dL (6.0-8.3) L 08/06/17 06:58 Albumin 2.1 g/dL (3.5-5.0) L 08/06/17 06:58 Albumin/Globulin Ratio 0.6 (1.1-2.2) L 08/06/17 06:58 Peritoneal RBC 0.020 M/mcL (0.000-0.002) H 08/02/17 09:00 Periton Tot Nuc Cells 370 TNC/mcL (0-300) H 08/02/17 09:00 General appearance: Present: no acute distress - Respiratory Respiratory exam: Present: decreased breath sounds, CTAB - Cardiovascular Cardiovascular exam: Present: +S1, +S2 - GI/Abdominal GI/Abdominal exam: Present: diminished bowel sounds, distended, firm - Extremities Exam Additional comments: 3+ edema bilateral lower extremities - Neurological Exam Neurological exam: Present: alert, oriented X3, strengths equal and symetr throughout - Skin Skin exam: Present: dry, warm Palliative Quality Palliative Quality: Screen for Code Status: Yes, Screen for Goals of Care: Yes, Screen for Pain: Yes, If Pain Regimen Started, Initiate Bowel Regimen: NA, Screen for Nausea/Vomitting: Yes Code Status: 07/31/17 21:40 Resuscitation Status: Active [RES] Routine Comment: Resuscitation Status: Full Code 08/04/17 11:13 DNR [Resuscitation Status: Active] [RES] Routine Comment: Resuscitation Status: DNR-Comfort Care - Labs CBC & Chem 7: 08/09/17 06:10 08/09/17 06:10 Labs: Laboratory Results - last 24 hr 08/07/17 08/07/17 08/08/17 17:57 20:40 08:00 WBC RBC Hgb Hct MCV MCH MCHC RDW Plt Count MPV Seg Neutrophils % Lymphocytes % Monocytes % Eosinophils % Neutrophils # Lymphocytes # Monocytes # Eosinophils # Platelet Estimate Hypochromasia Anisocytosis Macrocytosis Sodium Potassium Chloride Carbon Dioxide BUN Creatinine Est GFR ( Amer) Est GFR (Non-Af Amer) BUN/Creatinine Ratio Glucose POC Glucose 156 H 212 H 89 Calculated Osmolality Calcium Phosphorus Magnesium 08/08/17 08/08/17 08/08/17 11:10 15:45 20:26 WBC RBC Hgb Hct MCV MCH MCHC RDW Plt Count MPV Seg Neutrophils % Lymphocytes % Monocytes % Eosinophils % Neutrophils # Lymphocytes # Monocytes # Eosinophils # Platelet Estimate Hypochromasia Anisocytosis Macrocytosis Sodium Potassium Chloride Carbon Dioxide BUN Creatinine Est GFR ( Amer) Est GFR (Non-Af Amer) BUN/Creatinine Ratio Glucose POC Glucose 140 H 180 H 163 H Calculated Osmolality Calcium Phosphorus Magnesium 08/09/17 08/09/17 08/09/17 06:10 06:10 07:36 WBC 5.4 RBC 3.75 L Hgb 10.8 L Hct 32.3 L MCV 86.1 MCH 28.8 MCHC 33.4 RDW 16.9 H Plt Count 125 L MPV 9.1 L Seg Neutrophils % 72.0 Lymphocytes % 20.0 Monocytes % 6.0 Eosinophils % 2.0 Neutrophils # 3.9 Lymphocytes # 1.1 Monocytes # 0.3 Eosinophils # 0.1 Platelet Estimate Slight Decrease L Hypochromasia Present A Anisocytosis 1+ A Macrocytosis Present A Sodium 130 L Potassium 3.9 Chloride 100 Carbon Dioxide 25 BUN 42 H Creatinine 1.14 H Est GFR ( Amer) 58 L Est GFR (Non-Af Amer) 48 L BUN/Creatinine Ratio 37 H Glucose 72 POC Glucose 59 Calculated Osmolality 279 L Calcium 8.2 L Phosphorus 2.0 L Magnesium 1.7 08/09/17 08/09/17 08:53 11:23 WBC RBC Hgb Hct MCV MCH MCHC RDW Plt Count MPV Seg Neutrophils % Lymphocytes % Monocytes % Eosinophils % Neutrophils # Lymphocytes # Monocytes # Eosinophils # Platelet Estimate Hypochromasia Anisocytosis Macrocytosis Sodium Potassium Chloride Carbon Dioxide BUN Creatinine Est GFR ( Amer) Est GFR (Non-Af Amer) BUN/Creatinine Ratio Glucose POC Glucose 69 117 H Calculated Osmolality Calcium Phosphorus Magnesium - ABG Interpretation ABG results: PT/INR, D-dimer PT 16.7 Seconds (9.4-12.1) H 08/01/17 00:20 Consult Discharge Plan - Plan Referrals: Latha Fink CNP [Primary Care Provider] - 08/16/17 12:00 pm
--- NOTE | 2017-08-09 13:55 | Internal Med Progress Note ---
Date of Encounter: 08/09/17 Time of Encounter: 13:53 - Assessment and plan (1) Ascites Current Visit: Yes Status: Chronic Assessment and plan: Secondary to cirrhosis of the liver pt reports of getting weekly paracentesis s/p paracentesis (08/02/17) with 8L ascites fluid removal s/p albumin supplementation peritoneal fluid analysis consistent with SBP Continue Cefotaxime 2gm IV q8h (day 08/09)-Finished treatment IR consulted for therapeutic paracentesis, scheduled for later today spool worker on board in regards to ECF placement Qualifiers: Ascites type: other type Qualified Code(s): R18.8 - Other ascites (2) SBP (spontaneous bacterial peritonitis) Current Visit: Yes Status: Acute Assessment and plan: as listed above finished abx course (3) Pleural effusion Current Visit: Yes Status: Acute Assessment and plan: CXR findings reported worsening of left pleural effusion Tolerating Lasix Repeat CXR shows worsening effusion. IR consulted for therapeutic thoracentesis , scheduled for later today Saturating appropriately on nasal cannula O2 supplementation strict I/Os (4) Cirrhosis Current Visit: Yes Status: Chronic Assessment and plan: pt encouraged to lactulose as scheduled, continues to adamantly refuse Qualifiers: Hepatic cirrhosis type: unspecified hepatic cirrhosis Ascites presence: with ascites Qualified Code(s): K74.60 - Unspecified cirrhosis of liver (5) Type 2 diabetes mellitus Current Visit: Yes Status: Chronic Assessment and plan: continue sliding scale insulin algorithm monitor FS and BG ADA diet Qualifiers: Diabetes mellitus complication status: without complication Diabetes mellitus ad terminal makeup operator insulin use: with ad terminal makeup operator use Qualified Code(s): E11.9 - Type 2 diabetes mellitus without complications; Z79.4 - truck terminal manager (current) use of insulin; Z79.4 - truck terminal manager (current) use of insulin; Z79.4 - skilled nursing ( current) use of insulin; Z79.4 - skilled nursing (current) use of insulin (6) GERD (gastroesophageal reflux disease) Current Visit: No Status: Chronic Qualifiers: Esophagitis presence: esophagitis presence not specified Qualified Code(s) : K21.9 - Gastro-esophageal reflux disease without esophagitis (7) Hypertension Current Visit: Yes Status: Chronic Assessment and plan: BP within acceptable range continue to closely monitor holding lisinopril/hctz given KANE Qualifiers: Hypertension type: essential hypertension Qualified Code(s): I10 - Essential (primary) hypertension (8) UTI (urinary tract infection) Current Visit: Yes Status: Acute Assessment and plan: Urine cultures positive for VRE Nitrofurantoin for VRE UTI DAy 04/09 of abx (9) KANE (acute kidney injury) Current Visit: Yes Status: Acute Assessment and plan: holding Lisinopril/hctz continue Lasix given severe pleural effusion renal function mildly improved compared to previous day will closely monitor renal function (10) DVT prophylaxis Current Visit: Yes Status: Acute Assessment and plan: Heparin SQ (11) Hypophosphatemia Current Visit: Yes Status: Acute Assessment and plan: Phos supplemented continue to monitor electrolytes and replace as needed - Subjective Interval history: Patient seen and examined at bedside. Resting in bed. AAO x 3. Has been refusing her lactulose dose. Scheduled for therapeutic paracentesis and thoracentesis later today by IR. Pt in agreement to going to [facility] Palliative care spoke with the patient yesterday and her code status is DNRCC ( no pressor support, central line in addition to DNR/DNI) - Constitutional Vitals: Temp Pulse Resp BP Pulse Ox 98.3 F 83 16 104/62 93 08/09/17 11:20 08/09/17 11:20 08/09/17 11:20 08/09/17 11:20 08/09/17 11:20 General appearance: Present: disheveled, A&O X 3, no acute distress, obese - Head Head exam: Present: atraumatic, normocephalic - Eye Eye exam: Present: conjuntiva pink, sclera anicteric - Respiratory Respiratory exam: Present: decreased breath sounds. Absent: respiratory distress, wheezes - Cardiovascular Cardiovascular exam: Present: RRR, +S1, +S2. Absent: diastolic murmur, gallop, rubs, systolic murmur - GI/Abdominal GI/Abdominal exam: Present: distended (ascites with positive fluid wave), normal bowel sounds, soft. Absent: tenderness - Neurological Exam Neurological exam: Present: alert, oriented X3 - Psychiatric Psychiatric exam: Present: normal affect, normal mood Internal Medicine: Result - Labs CBC & Chem 7: 08/09/17 06:10 08/09/17 06:10 Labs: Short CBC 08/09/17 Range/Units 06:10 WBC 5.4 (4.3-11.1) K/mcL Hgb 10.8 L (11.5-15.4) g/dL Hct 32.3 L (35.3-44.9) % Plt Count 125 L (140-400) K/mcL Neutrophils # 3.9 (1.6-8.9) K/mcL BMP 08/09/17 06:10 Sodium 130 L Potassium 3.9 Chloride 100 Carbon Dioxide 25 BUN 42 H Creatinine 1.14 H Glucose 72 Calcium 8.2 L - ABG Interpretation ABG results: PT/INR, D-dimer PT 16.7 Seconds (9.4-12.1) H 08/01/17 00:20 - VTE Documentation of Mechanical Device: Intermittent pneumatic compression device Consult Discharge Plan - Plan Referrals: Latha Fink CNP [Primary Care Provider] - 08/16/17 12:00 pm
--- NOTE | 2017-08-09 14:21 | IR Procedure Note ---
Date of procedure: 08/09/17 Consent Obtained: Verbal consent Timeout: Correct patient and procedure verified, Correct site verified, Time out performed, Skin prep completed Local anesthetic: Lidocaine 1% Indications: Ascites, pleural effusion on left Procedure Performed: Left thoracentesis, paracentesis Site/Technique: Left chest, right lower abdomen Results/Findings: 1.4L removed from left chest, abdomen still draining. Estimated blood loss (cc): 3 Complications: None; Tolerated procedure well Post Procedure Treatment Plan: Monitoring in pts room. CXR ordered.
[2017-08-09] MEDS: Gabapentin 300 MG CAPSULE PO SCH (20:51)
[2017-08-09] MEDS: Insulin DETEMIR 100 UNIT/ML X5UNITS SQ SCH (21:06)
[2017-08-10] MEDS: Ipratropium/Albuterol Neb 3 ML IH SCH ×3 (03:31→15:50)
[2017-08-10 04:47] LABS: Hemoglobin 11.3 g/dL (11.5-15.4); Mean Corpuscular HGB Conc 34.2 g/dL (31.6-35.5); Mean Corpuscular Hemoglobin 29.2 pg (28.0-33.3); Mean Corpuscular Volume 85.3 fL (83.0-100.0); Mean Platelet Volume 8.7 fL (9.4-12.4); Platelet Count 118 K/mcL (140-400); Red Blood Count 3.87 M/mcL (3.82-4.97); Red Cell Distribution Width 16.9 % (11.5-14.5)
[2017-08-10 05:05] LABS: Calcium 8.1 mg/dL (8.6-10.8); Magnesium 1.7 mg/dL (1.6-2.6)
[2017-08-10 05:14] LABS: Lymphocytes # 0.9 K/mcL (0.6-4.6); Monocytes # 1.5 K/mcL (0.0-1.3); Neutrophils # 3.8 K/mcL (1.6-8.9); Platelet Estimate Slight Decrease (Normal)
[2017-08-10 05:15] LABS: Hypochromasia Present (Not Present); Macrocytosis Present (Not Present)
[2017-08-10] MEDS: *HR* Heparin 5,000 UNIT/ML VIAL SQ SCH (06:36)
[2017-08-10] MEDS ORDERED: Furosemide 20 MG TABLET PO SCH (08:00)
[2017-08-10] MEDS: Insulin LISPRO 300 UNITS/3 ML VIAL SQ SCH ×2 (09:53→11:38)
[2017-08-10] MEDS: Lactulose Oral Soln 20 GM/30 ML UDC PO SCH ×2 (09:56→14:57)
[2017-08-10] MEDS: Nitrofurantoin (BID) 100 MG CAPSULE PO SCH (09:57)
[2017-08-10] MEDS: Venlafaxine XR (24 HR) 150 MG CAP.ER.24H PO SCH (09:57)
[2017-08-10 11:18] VITALS: BP 100/57
--- NOTE | 2017-08-10 12:59 | Discharge Summary ---
Date of Encounter: 08/10/17 Time of Encounter: 12:05 - Discharge Diagnosis (1) Ascites Priority: Primary Status: Chronic Qualifiers: Ascites type: other type Qualified Code(s): R18.8 - Other ascites (2) SBP (spontaneous bacterial peritonitis) Priority: Secondary Status: Resolved (3) Pleural effusion Priority: Secondary Status: Chronic (4) Cirrhosis Priority: Secondary Status: Chronic Qualifiers: Hepatic cirrhosis type: unspecified hepatic cirrhosis Ascites presence: with ascites Qualified Code(s): K74.60 - Unspecified cirrhosis of liver (5) Type 2 diabetes mellitus Priority: Secondary Status: Chronic Qualifiers: Diabetes mellitus complication status: without complication Diabetes mellitus half-way insulin use: with half-way use Qualified Code(s): E11.9 - Type 2 diabetes mellitus without complications; Z79.4 - exterminator termite (current) use of insulin; Z79.4 - exterminator termite (current) use of insulin; Z79.4 - exterminator termite ( current) use of insulin; Z79.4 - exterminator termite (current) use of insulin (6) GERD (gastroesophageal reflux disease) Priority: Secondary Status: Chronic Qualifiers: Esophagitis presence: esophagitis presence not specified Qualified Code(s) : K21.9 - Gastro-esophageal reflux disease without esophagitis (7) Hypertension Priority: Secondary Status: Chronic Qualifiers: Hypertension type: essential hypertension Qualified Code(s): I10 - Essential (primary) hypertension (8) UTI (urinary tract infection) Priority: Secondary Status: Acute (9) KANE (acute kidney injury) Priority: Secondary Status: Acute (10) DVT prophylaxis Priority: Secondary Status: Acute (11) Hypophosphatemia Priority: Secondary Status: Acute - Discharge Medications Prescriptions: Gabapentin [Neurontin] 300 mg PO HS #10 capsule Nitrofurantoin (BID) [Macrobid] 100 mg PO BIDWM #7 capsule Home Medications: Insulin ASPART [Novolog Flexpen] 0 unit SQ TIDWM 07/03/16 [History] Insulin Glargine,Hum.rec.anlog [Lantus Solostar] 30 - 35 unit SQ HS 07/03/16 [ History] Omeprazole [PriLOSEC] 20 mg PO DAILY 07/03/16 [History] Venlafaxine XR (24 HR) [Effexor Xr] 150 mg PO DAILY 07/03/16 [History] Metformin HCl [Glucophage] 1,000 mg PO BID 03/30/17 [History] Ferrous Sulfate 325 mg PO BIDWM #60 tablet 04/01/17 [Rx] Spironolactone [Aldactone] 100 mg PO DAILY #60 tablet 04/01/17 [Rx] Furosemide [Lasix] 20 mg PO BIDDIURETIC tablet 08/10/17 [Rx] Gabapentin [Neurontin] 300 mg PO HS #10 capsule 08/10/17 [Rx] Ipratropium/Albuterol Neb [Duoneb] 3 ml IH [id number] inhsol 08/10/17 [Rx] Lactulose 20 gm PO TID udc 08/10/17 [Rx] Nitrofurantoin (BID) [Macrobid] 100 mg PO BIDWM #7 capsule 08/10/17 [Rx] Allergies/Adverse Reactions: 3 Allergy/AdvReac Type Severity Reaction Status Date / Time Oxycodone [From OxyContin] Allergy Hives Verified 08/01/17 14:13 acetaminophen [From Percocet] AdvReac Nausea Verified 08/01/17 14:13 Procedures/tests Complete & Pending: Procedures Performed prior 72 hours Category Date Time Status IR paracentesis ultrasound [IR] Routine IR 08/09/17 Completed IR thoracentesis ultrasound [IR] Routine IR 08/09/17 Completed Date of admission: 07/31/17 22:30 Primary care physician: Latha Fink CNP Consults: 08/01/17 01:14 Consult to Quantitative Associate [CONS] Routine Reason for SW Consult: Patient stated she was in the process of being set up for home health to get an aid through passport, although, patient fell at home and laid on the floor for 2 days, she lives at home alone. 08/02/17 08:02 Consult to Interventional Radiology [CONS] Routine Consulting Provider: Radiology Interventional Cols Reason for Consult: paracentesis Call Completed: Yes 08/02/17 11:51 Consult to Occupational Therapy [CONS] Routine Comment: Evaluate, develop and implement POC Reason for Consult: fall at home Consult to Physical Therapy [CONS] Routine Comment: Evaluate, develop and implement POC Reason for Consult: fall at home Consult to Quantitative Associate [CONS] Routine Reason for SW Consult: fall at home 08/04/17 08:06 Consult to Palliative Care [CONS] Routine Comment: Consulting Provider: Palliative Care Lisa Reason for Consult: goals of care, advance directives Call Completed: Yes 08/08/17 15:02 Consult to Interventional Radiology [CONS] Routine Consulting Provider: Radiology Interventional Cols Reason for Consult: Paracentesis and Thoracentesis (left pleural effusion- Therapeutic thoracentesis) Call Completed: Yes Discharging clinician: Marissa Bloom Anticipated date of discharge: 08/10/17 - Patient Status Disposition: Transfer SNF Condition: Good Functional capacity at discharge: uses cane/walker Overall status at discharge: patient is back to baseline - Discharge Instructions Follow Up With: Latha Fink, FALAFEL CART COOK [Primary Care Provider] - 08/16/17 12:00 pm Additional Instructions: Please follow up with your primary care physician within five days after your discharge from the hospital. continue oral antibiotics as prescribed. your home dose of lisinopril/hctz has been discontinued due to your low blood pressures please closely monitor your blood pressure at home. resume all other medications as prescribed by your primary care physician. - Diet and Activity Activity: as per physical therapy Diet: diabetic diet, low salt diet Hospital course: Ms. Bautista is a 67 year old female with PMH of cirrhosis of the liver, ascites , DM, HTN, GERD who was admitted for abd discomfort secondary to worsening ascites and UTI. Pt underwent diagnostic/therapeutic paracentesis which was concerning for SBP. she received 10 days of IV abx therapy. She was also started on IV abx for UTI, abx were changed as per urine culture results (VRE). She was also noted to have pleural effusion which remained persistent despite lasix therapy due to which she had a therapeutic thoracentesis. She was followed by palliative care and decided to [facility] and change code status to DNRCC. She was seen by physical therapy and ECF was recommended. Pt is hemodynamically stable and will be discharged to ECF. - Time Spent with Patient Total time spent providing and/or coordinating discharge services: Greater than 30 minutes - Constitutional Vitals: Temp Pulse Resp BP Pulse Ox 97.3 F L 80 16 100/57 92 08/10/17 11:15 08/10/17 11:15 08/10/17 11:15 08/10/17 11:15 08/10/17 11:15 General appearance: Present: disheveled, A&O X 3, no acute distress, obese - Head Head exam: Present: atraumatic, normocephalic - Eye Eye exam: Present: conjuntiva pink, sclera anicteric - Respiratory Respiratory exam: Absent: respiratory distress, wheezes - Cardiovascular Cardiovascular exam: Present: RRR, +S1, +S2. Absent: diastolic murmur, gallop, rubs, systolic murmur - GI/Abdominal GI/Abdominal exam: Present: distended (ascites), normal bowel sounds, soft. Absent: tenderness - Extremities Exam Extremities exam: Present: pedal edema, radial pulses palpable and symmetrical. Absent: calf tenderness - Neurological Exam Neurological exam: Present: alert, oriented X3 - Psychiatric Psychiatric exam: Present: normal affect, normal mood - VTE Documentation of Mechanical Device: Intermittent pneumatic compression device
--- NOTE | 2017-08-10 13:11 | Physician Discharge Referral ---
ExtendedCare Referral Info Transfer To: ECF Provider in Charge after Transfer: PCP - Diagnosis (1) Ascites Priority: Primary Status: Chronic (2) SBP (spontaneous bacterial peritonitis) Priority: Secondary Status: Resolved (3) Pleural effusion Priority: Secondary Status: Chronic (4) Cirrhosis Priority: Secondary Status: Chronic (5) Type 2 diabetes mellitus Priority: Secondary Status: Chronic (6) GERD (gastroesophageal reflux disease) Priority: Secondary Status: Chronic (7) Hypertension Priority: Secondary Status: Chronic (8) UTI (urinary tract infection) Priority: Secondary Status: Acute (9) KANE (acute kidney injury) Priority: Secondary Status: Acute (10) DVT prophylaxis Priority: Secondary Status: Acute (11) Hypophosphatemia Priority: Secondary Status: Acute - Transfer Medications Prescriptions: Gabapentin [Neurontin] 300 mg PO HS #10 capsule Nitrofurantoin (BID) [Macrobid] 100 mg PO BIDWM #7 capsule Home Medications: Insulin ASPART [Novolog Flexpen] 0 unit SQ TIDWM 07/03/16 [History] Insulin Glargine,Hum.rec.anlog [Lantus Solostar] 30 - 35 unit SQ HS 07/03/16 [ History] Omeprazole [PriLOSEC] 20 mg PO DAILY 07/03/16 [History] Venlafaxine XR (24 HR) [Effexor Xr] 150 mg PO DAILY 07/03/16 [History] Metformin HCl [Glucophage] 1,000 mg PO BID 03/30/17 [History] Ferrous Sulfate 325 mg PO BIDWM #60 tablet 04/01/17 [Rx] Spironolactone [Aldactone] 100 mg PO DAILY #60 tablet 04/01/17 [Rx] Furosemide [Lasix] 20 mg PO BIDDIURETIC tablet 08/10/17 [Rx] Gabapentin [Neurontin] 300 mg PO HS #10 capsule 08/10/17 [Rx] Ipratropium/Albuterol Neb [Duoneb] 3 ml IH [id number] inhsol 08/10/17 [Rx] Lactulose 20 gm PO TID udc 08/10/17 [Rx] Nitrofurantoin (BID) [Macrobid] 100 mg PO BIDWM #7 capsule 08/10/17 [Rx] Allergies/Adverse Reactions: 3 Allergy/AdvReac Type Severity Reaction Status Date / Time Oxycodone [From OxyContin] Allergy Hives Verified 08/01/17 14:13 acetaminophen [From Percocet] AdvReac Nausea Verified 08/01/17 14:13 - Respiratory Orders Smoking Cessation: Smoking cessation has been advised. For more information, call the [place] Tobacco Quit Line at 2-898-SRMWNOW. CERTIFICATION: I certify that the transfer of the above named patient to an Extended Care Facility is necessary for the continuing treatment of the diagnosis listed. The above information is true and accurate reflection of patient's current condition. Confidential - Redisclosure prohibited without a patient's written consent.
== END 2017-08-10 16:09 | DRG 432 ==
LOC: 2ANU → SUATTDRO 22:30 → 2ANU 08-08 22:58
PROVIDERS: ADMIT Internal Medicine; ATTEND Internal Medicine